=== PATIENT | female | born 1965 | race Caucasian/White ===

== ENCOUNTER → 2017-04-12 | Outpatient (CLI) | payer BC ==
--- NOTE | 2017-04-13 10:39 | MM ---
Reason for exam: screening (asymptomatic). Last mammogram was performed 1 year and 5 months ago. History: Family history of breast cancer in aunt at age 60 and breast cancer in cousin at age 48. Took hormonal contraceptives for 6 months beginning at age 24. Physical Findings: A clinical breast exam by your physician is recommended on an annual basis and results should be correlated with mammographic findings. MG 3D Screening Mammo W/Cad Bilateral CC and MLO view(s) were taken. Prior study comparison: November 01, 2015, bilateral MG 3d screening mammo w/cad. August 08, 2014, bilateral MG diagnostic mammo w CAD KAREN. The breast tissue is heterogeneously dense. This may lower the sensitivity of mammography. Finding: There are typically benign round calcifications in the right breast. There is no discrete abnormality. ASSESSMENT: Negative, BI-RAD 1 RECOMMENDATION: Routine screening mammogram of both breasts in 1 year.
== END | disposition home or self-care (01) ==
LOC: RADMAMWWP 10:03
PROVIDERS: ATTEND Family Medicine
DX: Z12.31 Encounter for screening mammogram for malignant neoplasm of breast (principal)
CPT/HCPCS: 77063; G0202

== ENCOUNTER → 2018-08-18 | Outpatient (CLI) | payer BC ==
--- NOTE | 2018-08-18 10:50 | BD ---
EXAMINATION TYPE: Axial Bone Density DATE OF EXAM: 08/18/2018 COMPARISON: NONE CLINICAL HISTORY: 53 YR OLD FEMALE....ICD-10 CODE: M81.0 AGE RELATED OSTEOPOROSIS Height: 61.4 Weight: 176 FRAX RISK QUESTIONS: NOTHING TO NOTE HERE RISK FACTORS HISTORY OF: Active: YES Postmenopausal woman: NA If Premenopausal, do you have irregular periods: HYST AT AGE 44 YRS OLD, PARTIAL MEDICATIONS: Prednisone or other steroids: INHALERS IN THE PAST ....BUT NONE NOW Additional Medications: VIT D, LAST YR....STOPPED 3 MOS AGO, REFLUX MEDS, Additional History: NOTHING TO NOTE EXAM MEASUREMENTS: Bone mineral densitometry was performed using the [employer] System. Bone mineral density as measured about the Lumbar spine is: ----- L1-L4(G/cm2): 1.349 T Score Values are as follows: ----- L1: 1.1 ----- L2: 1.3 ----- L3: 1.1 ----- L4: 1.8 ----- L1-L4: 1.4 Bone mineral density FIRST BONE DENSITY TEST......BASELINE STUDY Bone mineral density about the R hip (g/cm2): 1.108 Bone mineral density about the L hip (g/cm2): 1.087 T Score values are as follows: -----R Neck: 0.3 -----L Neck: -0.1 -----R Total: 0.8 -----L Total: 0.6 Bone mineral density BASELINE STUDY FRAX%s: THERE IS A 3.7% CHANCE FOR A MAJOR OSTEOPOROTIC FX AND A 0.1% FOR HIP FX.....PROBABILITY OF FX IN 10 YRS TIME IMPRESSION: No evidence for osteoporosis or osteopenia. NOTE: T-SCORE=SD OF THE YOUNG ADULT MEAN.
--- NOTE | 2018-08-19 11:41 | MM ---
Reason for exam: screening (asymptomatic). Last mammogram was performed 1 year and 4 months ago. History: Family history of breast cancer in aunt at age 60 and breast cancer in cousin at age 48. Took hormonal contraceptives for 6 months beginning at age 24. Physical Findings: A clinical breast exam by your physician is recommended on an annual basis and results should be correlated with mammographic findings. MG 3D Screening Mammo W/Cad Bilateral CC and MLO view(s) were taken. Prior study comparison: April 12, 2017, bilateral MG 3d screening mammo w/cad. November 01, 2015, bilateral MG 3d screening mammo w/cad. The breast tissue is heterogeneously dense. This may lower the sensitivity of mammography. There are benign appearing round vascular calcifications bilaterally. There is no discrete abnormality. ASSESSMENT: Benign, BI-RAD 2 RECOMMENDATION: Routine screening mammogram of both breasts in 1 year.
== END | disposition home or self-care (01) ==
LOC: RADMAMWWP 07:06
PROVIDERS: ATTEND Family Medicine
DX: Z12.31 Encounter for screening mammogram for malignant neoplasm of breast (principal); Z87.39 Personal history of other diseases of the musculoskeletal system and connective tissue
CPT/HCPCS: 77063; 77067; 77080

== ENCOUNTER → 2020-08-19 | Outpatient (CLI) | payer BC ==
--- NOTE | 2020-08-19 10:00 | BD ---
EXAMINATION TYPE: Axial Bone Density DATE OF EXAM: 08/19/2020 COMPARISON: 2018 CLINICAL HISTORY: osteoporosis Height: 5 '1 1/2 Weight: 191 FRAX RISK QUESTIONS: Secondary Osteoporosis: RISK FACTORS HISTORY OF: Family History of Osteoporosis: y Postmenopausal woman: y MEDICATIONS: Prednisone or other steroids: y How Long: off and on Additional Medications: acid reflex Additional History: EXAM MEASUREMENTS: Bone mineral densitometry was performed using the [employer] System. Bone mineral density as measured about the Lumbar spine is: ----- L1-L4(G/cm2): 1.375 T Score Values are as follows: ----- L2: 1.4 ----- L3: 2.0 ----- L4: 1.8 ----- L1-L4: 1.6 Bone mineral density has: increased 2.6% since study of: 08/18/2018 Bone mineral density about the R hip (g/cm2): 1.022 Bone mineral density about the L hip (g/cm2): 1.016 T Score values are as follows: -----R Neck: -0.1 -----L Neck: -0.2 -----R Total: 0.8 -----L Total: 0.6 Bone mineral density has: Decreased -0.1% since study of: 08/18/2018 IMPRESSION: Normal (Values between +1 and -1 indicate normal bone mass). Consider repeating this study in 5 year s or sooner if there is some new clinical indication. NOTE: T-SCORE=SD OF THE YOUNG ADULT MEAN.
--- NOTE | 2020-08-20 13:32 | MM ---
Reason for exam: screening (asymptomatic). Last mammogram was performed 2 years ago. History: Family history of breast cancer in aunt at age 60 and breast cancer in cousin at age 48. Took hormonal contraceptives for 6 months beginning at age 24. Physical Findings: A clinical breast exam by your physician is recommended on an annual basis and results should be correlated with mammographic findings. MG 3D Screening Mammo W/Cad Bilateral CC, MLO, and XCCL view(s) were taken. Prior study comparison: August 18, 2018, bilateral MG 3d screening mammo w/cad. April 12, 2017, bilateral MG 3d screening mammo w/cad. The breast tissue is heterogeneously dense. This may lower the sensitivity of mammography. No significant changes when compared with prior studies. ASSESSMENT: Benign, BI-RAD 2 RECOMMENDATION: Routine screening mammogram of both breasts in 1 year.
== END | disposition home or self-care (01) ==
LOC: RADMAMWWP 08:10
PROVIDERS: ATTEND Family Medicine
DX: Z12.31 Encounter for screening mammogram for malignant neoplasm of breast (principal); M81.0 Age-related osteoporosis without current pathological fracture
CPT/HCPCS: 77063; 77067; 77080

== ENCOUNTER → 2021-10-30 | Outpatient (CLI) | payer BC ==
--- NOTE | 2021-11-03 08:27 | MM ---
Reason for exam: screening (asymptomatic). Last mammogram was performed 1 year and 2 months ago. History: Patient is postmenopausal. Family history of breast cancer in aunt at age 60 and breast cancer in cousin at age 48. Took hormonal contraceptives for 6 months beginning at age 24. Physical Findings: A clinical breast exam by your physician is recommended on an annual basis and results should be correlated with mammographic findings. MG 3D Screening Mammo W/Cad Bilateral CC and MLO view(s) were taken. Prior study comparison: August 19, 2020, bilateral MG 3d screening mammo w/cad. August 18, 2018, bilateral MG 3d screening mammo w/cad. The breast tissue is heterogeneously dense. This may lower the sensitivity of mammography. Isodense nodularity lateral anterior left CC view and medial middle depth left CC view show no clear MLO correlate, possible cysts. ASSESSMENT: Incomplete: need additional imaging evaluation, BI-RAD 0 RECOMMENDATION: Special view mammogram of the left breast. (3D) If lesion persists on supplemental views, image directed ultrasound is recommended. [facility] will attempt to contact patient to return for supplemental views and ultrasound if indicated.
== END | disposition home or self-care (01) ==
LOC: RADMAMWWP 07:15
PROVIDERS: ATTEND Family Medicine
DX: Z12.31 Encounter for screening mammogram for malignant neoplasm of breast (principal); Z78.0 Asymptomatic menopausal state; Z80.3 Family history of malignant neoplasm of breast
CPT/HCPCS: 77063; 77067

== ENCOUNTER → 2021-11-05 | Outpatient (CLI) | payer BC ==
--- NOTE | 2021-11-05 09:20 | MM ---
Reason for exam: additional evaluation requested from abnormal screening. Last mammogram was performed less than 1 month ago. History: Patient is postmenopausal. Family history of breast cancer in aunt at age 60 and breast cancer in cousin at age 48. Took hormonal contraceptives for 6 months beginning at age 24. Physical Findings: Nurse did not find any significant physical abnormalities on exam. MG 3D Work Up W/Cad LT Spot compression CC and LM view(s) were taken of the left breast. Prior study comparison: October 30, 2021, bilateral MG 3d screening mammo w/cad. August 19, 2020, bilateral MG 3d screening mammo w/cad. The breast tissue is heterogeneously dense. This may lower the sensitivity of mammography. There is no discrete abnormality including area of concern. These results were verbally communicated with the patient and result sheet given to the patient on 11/05/21. ASSESSMENT: Probably benign, BI-RAD 3 RECOMMENDATION: Follow-up diagnostic mammogram of the left breast in 6 months.
== END | disposition home or self-care (01) ==
LOC: RADMAMWWP 07:34
PROVIDERS: ATTEND Family Medicine
DX: R92.8 Other abnormal and inconclusive findings on diagnostic imaging of breast (principal); Z78.0 Asymptomatic menopausal state; Z80.3 Family history of malignant neoplasm of breast
CPT/HCPCS: 77061; 77065

== ENCOUNTER 2022-01-04 09:18 | Emergency (ER) | payer BC ==
[2022-01-04 11:14] VITALS: RESP 14
[2022-01-04] MEDS ORDERED: MORPHINE SULFATE 4 MG/ML SYRINGE IVP STA (11:26)
[2022-01-04] MEDS ORDERED: ONDANSETRON 4 MG/2 ML VIAL IVP STA (11:26)
[2022-01-04 11:46] LABS: Basophils % (A) 0 %; Eosinophils # (A) 0.1 k/uL (0-0.7); Eosinophils % (A) 1 %; HCT 44.7 % (34.0-46.0); HGB 15.4 gm/dL (11.4-16.0); Lymphocytes # (A) 0.4 k/uL (1.0-4.8); Lymphocytes % (A) 5 %; MCH 31.4 pg (25.0-35.0); MCHC 34.3 g/dL (31.0-37.0); MCV 91.4 fL (80.0-100.0); Mean Platelet Volume 8.3; Monocytes # (A) 0.2 k/uL (0-1.0); Monocytes % (A) 2 %; Neutrophils # (A) 7.2 k/uL (1.3-7.7); Neutrophils % (A) 91 %; Platelet Count 151 k/uL (150-450); RBC 4.89 m/uL (3.80-5.40); RDW 12.7 % (11.5-15.5); WBC 7.9 k/uL (3.8-10.6)
--- NOTE | 2022-01-04 11:48 | ED ---
General Adult HPI - General Chief complaint: Extremity Injury, Upper Stated complaint: Neck/Rt Arm Pain Time Seen by Provider: 01/04/22 11:07 Source: patient Mode of arrival: ambulatory Limitations: no limitations - History of Present Illness Initial comments: This 56-year-old female presents emergency Department with right shoulder pain. Patient states she has had pain on the right side of her neck and in her right shoulder for the last couple of years, however 2 weeks ago she noticed increased pain in her right shoulder. Patient states this past she got a massage were the masseuse worked on a big knot in her right shoulder. Patient states about 4 hours after massage she began having excruciating pain to her right shoulder and on the right side of her neck. Patient states she did see [facility] on Wednesday who did schedule an MRI for this Wednesday. Patient states the pain is sharp in nature and is located on the backside of her right shoulder. Patient states the pain spasms and radiates up to the right side of her neck. Patient states [facility] did give her prednisone, baclofen, Zofran and [place] which has somewhat relieve the pain, however the pain feels worse today. Patient states her pain is worse with movement and states whenever she tries to lift her arm it causes spasms in her right shoulder. Patient states she is able to turn her head and neck side to side with minimal pain. Patient states she has been wearing a shoulder sling that was given to her by [facility] along with a collar around her neck. Patient denies any radicular pain, tingling or numbness. Patient denies any chest pain, shortness of breath, abdominal pain, nausea, vomiting, change in bowel or bladder, low back pain, saddle anesthesia, bowel or bladder retention/incontinence, headache, lightheadedness, dizziness. - Related Data Previous Rx's Medication Instructions Recorded Gabapentin [Neurontin] 300 mg PO BID #14 cap 01/04/22 oxyCODONE HCL/ACETAMINOPHEN 1 tab PO Q6HR PRN 3 Days #12 tab 01/04/22 [Percocet 5-325 mg] Allergies Allergy/AdvReac Type Severity Reaction Status Date / Time Sulfa (Sulfonamide Allergy Nausea & Verified 01/04/22 09:46 Antibiotics) Vomiting Review of Systems ROS Statement: Those systems with pertinent positive or pertinent negative responses have been documented in the HPI. ROS Other: All systems not noted in ROS Statement are negative. Past Medical History History of Any Multi-Drug Resistant Organisms: None Reported Past Surgical History: Hysterectomy Past Psychological History: No Psychological Hx Reported Smoking Status: Never smoker Past Alcohol Use History: Occasional Past Drug Use History: None Reported General Exam Limitations: no limitations General appearance: alert, in no apparent distress Head exam: Present: atraumatic, normocephalic, normal inspection Eye exam: Present: normal appearance, PERRL, EOMI. Absent: scleral icterus, conjunctival injection, periorbital swelling Pupils: Present: normal accommodation ENT exam: Present: normal exam, mucous membranes moist Neck exam: Present: normal inspection, tenderness (Mild tenderness to paraspinal cervical area on right side), full ROM. Absent: meningismus, lymphadenopathy Respiratory exam: Present: normal lung sounds bilaterally. Absent: respiratory distress, wheezes, rales, rhonchi, stridor Cardiovascular Exam: Present: regular rate, normal rhythm, normal heart sounds. Absent: systolic murmur, diastolic murmur, rubs, gallop, clicks GI/Abdominal exam: Present: soft, normal bowel sounds. Absent: distended, tenderness, guarding, rebound, rigid Extremities exam: Present: normal inspection, normal capillary refill, other (Patient with pain to anterior and posterior side of right shoulder to palpation. Patient able to slightly raise right arm anteriorly and laterally, it does cause pain. Radial and ulnar pulses palpable. No erythema. warmth to area. Mild swelling to posterior shoulder. No sign of infection.). Absent: full ROM (Patient able to slightly raise left arm laterally and anteriorly, however does cause severe pain. Patient able to squeeze my hand with equal strength to left hand, however does cause pain directly in her right shoulder), tenderness, pedal edema, joint swelling, calf tenderness Back exam: Present: normal inspection, full ROM, paraspinal tenderness (Mild paraspinal tenderness on right side to cervical area to deep palpation. Pain to posterior shoulder to palpation). Absent: CVA tenderness (R), CVA tenderness (L), vertebral tenderness Neurological exam: Present: alert, oriented X3, CN II-XII intact Psychiatric exam: Present: normal affect, normal mood Skin exam: Present: warm, dry, intact, normal color. Absent: rash Course Vital Signs 01/04/22 01/04/2222 09:40 11:10 14:59 Temperature 99.0 F 97.6 F 98.1 F Pulse Rate 90 83 87 Respiratory 20 14 14 Rate Blood Pressure 179/95 176/97 174/118 O2 Sat by Pulse 96 97 98 Oximetry - Reevaluation(s) Reevaluation #1: 01/04/22 11:42 After receiving morphine, patient states her shoulder pain did slightly decrease. 01/04/22 12:32 On reevaluation, patient states her pain is still present and severely worsens with any movement of right shoulder. Dilaudid ordered 01/04/22 13:03 On reevaluation, patient states she stated the Dilaudid did help her pain and decreased it down to about 4/10 01/04/22 13:45 I did speak with An[facility] from [facility] after [facility] scanning was read. She states she was going to call back after speaking to her attending 01/04/22 14:05 On reevaluation, patient still is experiencing 4/10 right shoulder pain. Physician acute care nursing assistant Anahi from [facility] did call back and stated she would be in to assess patient with her attending, . 01/04/22 14:52 Anahi did obtain a culture to be sent to lab. She instructed me to give patient a Percocet 5 x3 days along with gabapentin 300 mg twice a day for possible nerve pain. She stated she had an appointment with patient on Wednesday and was going to try and move it to either Wednesday or Wednesday. Medical Decision Making - Medical Decision Making This 56-year-old female presents emergency Department with right shoulder pain and mild swelling that has been present after a massage this past . 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 There is a prominent superior spur. Soft tissue edema throughout the subcutaneous tissue superior to the shoulder/AC joint, could represent bruising or other soft tissue swelling. Preserved volume of the rotator cuff. No joint her shoulder effusion apparent. No acute osseous abnormality seen. Patient with white blood cell count 7.8, ESR 50, C-reactive protein 21.3 Patient did receive minimal improvement in pain after morphine, after Dilaudid given patient stated her pain had significantly decreased and was now down to 4/10 instead of 10/10 on arrival. I did speak with [facility] from [facility] who has been seen owen ent for this issue who did come and evaluate patient with her attending, and obtained a culture to be sent to lab. Anahi did instruct me to give patient Percocet 5 q6hr x3 days along with gabapentin 300 mg twice a day for possible nerve pain. Anahi and I both instructed patient not to take [place] anymore and to take the Percocet instead. Patient instructed to continue her steroid along with Zofran as directed. Patient struck him to follow-up with her orthopedic appointment on Wednesday for her MRI. Strict return precautions were discussed. Patient sent home in stable condition. Patient verbally agreed to plan. Case discussed in detail with my attending, Dr. Stacy. - Lab Data Result diagrams: 01/04/22 11:37 01/04/22 11:37 Lab Results 01/04/22 01/04/22 Range/Units 11:37 11:37 WBC 7.9 (3.8-10.6) k/uL RBC 4.89 (3.80-5.40) m/uL Hgb 15.4 (11.4-16.0) gm/dL Hct 44.7 (34.0-46.0) % MCV 91.4 (80.0-100.0) fL MCH 31.4 (25.0-35.0) pg MCHC 34.3 (31.0-37.0) g/dL RDW 12.7 (11.5-15.5) % Plt Count 151 (150-450) k/uL MPV 8.3 Neutrophils % 91 % Lymphocytes % 5 % Monocytes % 2 % Eosinophils % 1 % Basophils % 0 % Neutrophils # 7.2 (1.3-7.7) k/uL Lymphocytes # 0.4 L (1.0-4.8) k/uL Monocytes # 0.2 (0-1.0) k/uL Eosinophils # 0.1 (0-0.7) k/uL Basophils # 0.0 (0-0.2) k/uL ESR 50 H (0-20) mm/hr Sodium 134 L (137-145) mmol/L Potassium 4.2 (3.5-5.1) mmol/L Chloride 99 (98-107) mmol/L Carbon Dioxide 24 (22-30) mmol/L Anion Gap 11 mmol/L BUN 8 (7-17) mg/dL Creatinine 0.53 (0.52-1.04) mg/dL Est GFR (CKD-EPI)AfAm >90 (>60 ml/min/1.73 sqM) Est GFR (CKD-EPI)NonAf >90 (>60 ml/min/1.73 sqM) Glucose 176 H (74-99) mg/dL Calcium 9.2 (8.4-10.2) mg/dL Total Bilirubin 1.1 (0.2-1.3) mg/dL AST 103 H (14-36) U/L ALT 165 H (4-34) U/L Alkaline Phosphatase 108 (38-126) U/L C-Reactive Protein 21.3 H (<1.0) mg/dL Total Protein 7.6 (6.3-8.2) g/dL Albumin 4.5 (3.5-5.0) g/dL Disposition Clinical Impression: Right shoulder pain Disposition: HOME SELF-CARE Condition: Stable Instructions (If sedation given, give patient instructions): Shoulder Pain (ED) Additional Instructions: Please return to the emergency department with any new, worsening or concerning symptoms. Take gabapentin every 12 hours 7 days, space out from when you take Percocet. Take Percocet no more than every 6 hours for pain relief. Do not take [place] while taking Percocet. Continue your steroid from [facility]. [facility] with [facility] on Wednesday for your scheduled MRI. Prescriptions: Gabapentin [Neurontin] 300 mg PO BID #14 cap oxyCODONE HCL/ACETAMINOPHEN [Percocet 5-325 mg] 1 tab PO Q6HR PRN 3 Days #12 tab PRN Reason: Pain Is patient prescribed a controlled substance at d/c from ED?: No Referrals: Lesley Becker MD [Primary Care Provider] - 1-2 days Time of Disposition: 15:35
[2022-01-04 11:56] LABS: ALT 165 U/L (4-34); AST 103 U/L (14-36); African American GFR (CKD) >90 (>60 ml/min/1.73 sqM); Albumin 4.5 g/dL (3.5-5.0); Alkaline Phosphatase 108 U/L (38-126); Anion Gap 11 mmol/L; Blood Urea Nitrogen 8 mg/dL (7-17); Calcium 9.2 mg/dL (8.4-10.2); Carbon Dioxide 24 mmol/L (22-30); Chloride 99 mmol/L (98-107); Glucose 176 mg/dL (74-99); Non-African American GFR(CKD) >90 (>60 ml/min/1.73 sqM); Potassium 4.2 mmol/L (3.5-5.1); Sodium 134 mmol/L (137-145); Total Bilirubin 1.1 mg/dL (0.2-1.3); Total Protein 7.6 g/dL (6.3-8.2)
[2022-01-04 12:07] LABS: C Reactive Protein 21.3 mg/dL (<1.0)
[2022-01-04 12:35] LABS: Erythrocyte Sedimentation Rate 50 mm/hr (0-20)
[2022-01-04] MEDS ORDERED: HYDROmorphone 0.5 MG/0.5 ML SYRINGE IVP STA (12:49)
--- NOTE | 2022-01-04 13:06 | CT ---
EXAMINATION TYPE: CT shoulder RT wo con DATE OF EXAM: 01/04/2022 COMPARISON: No radiographic correlation available HISTORY: 56-year-old female with right Shoulder pain TECHNIQUE: Contiguous axial scanning of the right shoulder without IV contrast. Coronal and sagittal reconstructions performed. Reconstructions generated on a dedicated independent workstation. CT DLP: 493.2 mGycm Automated exposure control for dose reduction was used. FINDINGS: There is mild to moderate degenerative change at the acromioclavicular joint. Prominent superior spur ring and capsular hypertrophy. There is soft tissue edema throughout the soft tissues superior to the AC joint that could represent some bruising or other soft tissue swelling. Subacromial space is maintained. No atrophy of the rotator cuff musculature. A joint is intact. There is minimal inferior humeral head spurring noted. No minimal joint effusion and no apparent subacromial/subdeltoid bursal effusion. No acute fracture, subluxation, or dislocation seen. IMPRESSION: 1. [id number] AC JOINT OA. THERE IS A PROMINENT SUPERIOR SPUR. 2. SOFT TISSUE EDEMA THROUGHOUT THE SUBCUTANEOUS TISSUES SUPERIOR TO THE SHOULDER/AC JOINT COULD REPR ESENT BRUISING OR OTHER SOFT TISSUE SWELLING. CLINICALLY CORRELATE. 3. PRESERVED VOLUME OF THE ROTATOR CUFF. NO JOINT OR BURSAL EFFUSION APPARENT BY CT. NO ACUTE OSSEOUS ABNORMALITY SEEN.
[2022-01-04] MEDS ORDERED: LIDOCAINE 1% INJ 10MG/ML (20 ML MDV) SQ ONE (14:08)
[2022-01-04] MEDS ORDERED: KETOROLAC 15 MG/ML 1 ML VIAL IVP STA (14:52)
[2022-01-04 15:01] VITALS: BP 174/118; PULSE 87; TEMP 98.1
--- NOTE | 2022-01-04 16:43 | P.CNOR ---
History of Present Illness - [facility] Consult date: 01/04/22 Consult reason: joint pain (Right shoulder pain) History of present illness: This is a 56-year-old female who was last seen in our office [place], 01/02/2022 with severe right shoulder pain. She had history of a deep tissue massage the day prior and soon developed severe right shoulder and arm pain. She's had no recent fevers or chills. No numbness or tingling down the arm. She describes the pain as constant and begins about the top of the shoulder and radiates posteriorly and anteriorly as well as down the inner arm. She has had minimal relief of her pain since been prescribed Prednisone, [place] and baclofen. She presents to the emergency department today for further evaluation. The patient denies history of gout but states her Father had severe gout. CT scan was performed in the emergency department today which shows no evidence of glenohumeral joint effusion. There is some fluid in the acromioclavicular joint. There is also diffuse soft tissue swelling in the shoulder. We are consulted for orthopedic evaluation. Past Medical History History of Any Multi-Drug Resistant Organisms: None Reported Past Surgical History: Hysterectomy Past Psychological History: No Psychological Hx Reported Smoking Status: Never smoker Past Alcohol Use History: Occasional Past Drug Use History: None Reported Medications and Allergies Home Medications Medication Instructions Recorded Confirmed Type Gabapentin [Neurontin] 300 mg PO BID #14 cap 01/04/22 Rx oxyCODONE HCL/ACETAMINOPHEN 1 tab PO Q6HR PRN 3 Days #12 tab 01/04/22 Rx [Percocet 5-325 mg] Allergies Allergy/AdvReac Type Severity Reaction Status Date / Time Sulfa (Sulfonamide Allergy Nausea & Verified 01/04/22 09:46 Antibiotics) Vomiting Physical Examination The patient is alert and oriented 3. She is in no acute distress but visibly uncomfortable. Any palpation to the anterior superior shoulder is significantly painful. Gentle internal and external rotation of the shoulder does not produce shoulder joint pain. There is pain noted with attempt of forward flexion and abduction. There is mild tenderness with palpation about the posterior right paraspinal musculature. There is pain in the superior anterior shoulder with even gentle motion of the wrist and elbow. Neurovascular status to the lower extremity is intact. The remainder of her musculoskeletal exam is unremarkable. Results Patient's white blood cell count is normal. CRP is 21. Sedimentation rate 50. CT scan of the right shoulder Without contrast reveals no glenohumeral joint effusion. There is an acromioclavicular fusion noted. There is generalized soft tissue edema throughout the shoulder.No acute fractures identified. - Labs Labs: Abnormal Lab Results - Last 24 Hours (Table) 01/04/22 01/04/22 Range/Units 11:37 11:37 Lymphocytes # 0.4 L (1.0-4.8) k/uL ESR 50 H (0-20) mm/hr Sodium 134 L (137-145) mmol/L Glucose 176 H (74-99) mg/dL AST 103 H (14-36) U/L ALT 165 H (4-34) U/L C-Reactive Protein 21.3 H (<1.0) mg/dL H & H 01/04/22 Range/Units 11:37 Hgb 15.4 (11.4-16.0) gm/dL Hct 44.7 (34.0-46.0) % Result Diagrams: 01/04/22 11:37 01/04/22 11:37 Assessment and Plan (1) Acromioclavicular joint arthritis Current Visit: Yes Status: Acute Code(s): M19.019 - PRIMARY OSTEOARTHRITIS, UNSPECIFIED SHOULDER SNOMED Code(s): 851249121 (2) Right shoulder pain Current Visit: Yes Status: Acute Code(s): M25.511 - PAIN IN RIGHT SHOULDER SNOMED Code(s): 49045817 Plan: The clinical and x-ray findings are discussed with the patient. The patient is evaluated by Dr. Brar today as well. The acromioclavicular joint is aspirated, obtaining only a few drops of fluid which is sent for culture and sensitivity. ER will provide her with stronger pain medication. I gave her a shot of Toradol before she leaves today. She is to follow-up for the MRI as scheduled. She is to continue the prednisone taper.
== END 2022-01-04 16:09 | disposition home or self-care (01) ==
LOC: EC 09:18
DX: M19.011 Primary osteoarthritis, right shoulder (principal); Z88.2 Allergy status to sulfonamides; Z90.710 Acquired absence of both cervix and uterus
CPT/HCPCS: 99284; 96374; 96375 ×3; 36415; 80053; 85652; 85025; 86140; 87070; 87205; 73200; J2270; J2405; J2001; J1885; J1170; 87077; 87186

== ENCOUNTER 2022-01-05 13:34 | Inpatient (IN) | payer BC ==
[2022-01-05] MEDS ORDERED: VANCOMYCIN IV PER PHARMACY 1 EACH MISC MISCELLANE PRN (13:58)
[2022-01-05] MEDS ORDERED: diazePAM 5 MG TAB PO STA (13:59)
[2022-01-05] MEDS ORDERED: HYDROmorphone 0.5 MG/0.5 ML SYRINGE IVP STA (13:59)
[2022-01-05] MEDS ORDERED: LOPERAMIDE 2 MG CAP PO PRN (14:01)
[2022-01-05] MEDS ORDERED: MAGNESIUM HYDROXIDE 2,400 MG/10 ML CUP PO PRN (14:01)
[2022-01-05] MEDS ORDERED: HYDROmorphone 1 MG/ML 1 ML SYRINGE IVP PRN (14:01)
[2022-01-05] MEDS ORDERED: NALOXONE 0.4 MG/ML 1 ML VIAL IV PRN (14:01)
--- NOTE | 2022-01-05 14:07 | ED ---
General Adult HPI - General Chief complaint: Extremity Problem,Nontraumatic Stated complaint: Shoulder Pain, Infection, Referral from Dr. Lilly Time Seen by Provider: 01/05/22 13:40 Source: patient, RN notes reviewed, old records reviewed Mode of arrival: ambulatory Limitations: physical limitation - History of Present Illness Initial comments: This is a 56-year-old female who presents emergency Department with pain in the right before meals joint area. Patient a few days ago had a very deep tissue massage when she woke up the next morning she was barely able to move her shoulder at all secondary to significant pain. Patient was seen in emergency department Dr. Brar aspirated the before meals joint and to the that aspirin came back with some gram-positive cocci. Dr. Brar wanted the patient to be brought into the hospital started on antibiotics and get an MRI of the shoulder. Patient herself states the pain is still excruciating and she's been taking OxyContin at home and has been helping but it still very difficult to move her shoulder. Patient states the pain is mostly over the before meals joint but it spreads down into her upper chest a little and into her supraspinatus area. There is no redness or swelling noted. - Related Data Previous Rx's Medication Instructions Recorded Gabapentin [Neurontin] 300 mg PO BID #14 cap 01/04/22 oxyCODONE HCL/ACETAMINOPHEN 1 tab PO Q6HR PRN 3 Days #12 tab 01/04/22 [Percocet 5-325 mg] Allergies Allergy/AdvReac Type Severity Reaction Status Date / Time Sulfa (Sulfonamide Allergy Nausea & Verified 01/05/22 13:36 Antibiotics) Vomiting Review of Systems ROS Statement: Those systems with pertinent positive or pertinent negative responses have been documented in the HPI. ROS Other: All systems not noted in ROS Statement are negative. Past Medical History History of Any Multi-Drug Resistant Organisms: None Reported Past Surgical History: Hysterectomy Past Psychological History: No Psychological Hx Reported Smoking Status: Never smoker Past Alcohol Use History: Occasional Past Drug Use History: None Reported General Exam - General Exam Comments Initial Comments: GENERAL: Patient is well-developed and well-nourished. Patient is nontoxic and well- hydrated and is in mild distress. ENT: Neck is soft and supple. No significant lymphadenopathy is noted. Oropharynx is clear. Moist mucous membranes. Neck has full range of motion without eliciting any pain. EYES: The sclera were anicteric and conjunctiva were pink and moist. Extraocular movements were intact and pupils were equal round and reactive to light. Eyelids were unremarkable. SKIN: Skin is clear with no lesions or rashes and otherwise unremarkable. NEUROLOGIC: Patient is alert and oriented x3. Cranial nerves II through XII are grossly intact. Motor and sensory are also intact. Normal speech, volume and content. Symmetrical smile. MUSCULOSKELETAL: Patient is having difficulty moving the arm secondary to pain. The before meals joint area is extremely tender to pain and the area just anterior and posterior to that are also tender but not as tender.. LYMPHATICS: No significant lymphadenopathy is noted PSYCHIATRIC: Normal psychiatric evaluation. Limitations: physical limitation Course Vital Signs 01/05/22 13:36 Temperature 97.8 F Pulse Rate 92 Respiratory 18 Rate Blood Pressure 159/91 O2 Sat by Pulse 97 Oximetry Medical Decision Making - Medical Decision Making I ordered an MRI for the patient shoulder. I gave the patient vancomycin. I also gave the patient Dilaudid for pain and ordered Valium to be given to her by mouth 5 mg at 4:00. I spoke with Anahi Levine and she wanted the patient to Dr. Brar - Lab Data Result diagrams: 01/05/22 13:45 01/05/22 13:45 Lab Results 01/05/22 01/05/22 Range/Units 13:45 13:45 WBC 7.8 (3.8-10.6) k/uL RBC 4.85 (3.80-5.40) m/uL Hgb 15.2 (11.4-16.0) gm/dL Hct 45.0 (34.0-46.0) % MCV 92.8 (80.0-100.0) fL MCH 31.4 (25.0-35.0) pg MCHC 33.8 (31.0-37.0) g/dL RDW 12.7 (11.5-15.5) % Plt Count 172 (150-450) k/uL MPV 8.6 Neutrophils % 87 % Lymphocytes % 8 % Monocytes % 4 % Eosinophils % 0 % Basophils % 0 % Neutrophils # 6.8 (1.3-7.7) k/uL Lymphocytes # 0.6 L (1.0-4.8) k/uL Monocytes # 0.3 (0-1.0) k/uL Eosinophils # 0.0 (0-0.7) k/uL Basophils # 0.0 (0-0.2) k/uL Sodium 136 L (137-145) mmol/L Potassium 4.1 (3.5-5.1) mmol/L Chloride 99 (98-107) mmol/L Carbon Dioxide 28 (22-30) mmol/L Anion Gap 9 mmol/L BUN 9 (7-17) mg/dL Creatinine 0.55 (0.52-1.04) mg/dL Est GFR (CKD-EPI)AfAm >90 (>60 ml/min/1.73 sqM) Est GFR (CKD-EPI)NonAf >90 (>60 ml/min/1.73 sqM) Glucose 185 H (74-99) mg/dL Calcium 9.0 (8.4-10.2) mg/dL Total Bilirubin 1.2 (0.2-1.3) mg/dL AST 135 H (14-36) U/L ALT 201 H (4-34) U/L Alkaline Phosphatase 118 (38-126) U/L Total Protein 7.5 (6.3-8.2) g/dL Albumin 4.3 (3.5-5.0) g/dL Disposition Clinical Impression: Joint infection Disposition: ADMITTED IP TO THIS HOSP Referrals: Lesley Becker MD [Primary Care Provider] - 1-2 days Time of Disposition: 14:58
[2022-01-05] MEDS ORDERED: VANCOMYCIN 1,500 MG in SODIUM CHLORIDE 0.9% 250 ML IVPB ONE (14:30)
[2022-01-05 14:37] LABS: Basophils % (A) 0 %; Eosinophils % (A) 0 %; HGB 15.2 gm/dL (11.4-16.0); Lymphocytes # (A) 0.6 k/uL (1.0-4.8); Lymphocytes % (A) 8 %; MCH 31.4 pg (25.0-35.0); MCHC 33.8 g/dL (31.0-37.0); MCV 92.8 fL (80.0-100.0); Mean Platelet Volume 8.6; Monocytes # (A) 0.3 k/uL (0-1.0); Monocytes % (A) 4 %; Neutrophils # (A) 6.8 k/uL (1.3-7.7); Neutrophils % (A) 87 %; Platelet Count 172 k/uL (150-450); RBC 4.85 m/uL (3.80-5.40); RDW 12.7 % (11.5-15.5); WBC 7.8 k/uL (3.8-10.6)
[2022-01-05 14:46] LABS: ALT 201 U/L (4-34); AST 135 U/L (14-36); African American GFR (CKD) >90 (>60 ml/min/1.73 sqM); Albumin 4.3 g/dL (3.5-5.0); Alkaline Phosphatase 118 U/L (38-126); Anion Gap 9 mmol/L; Blood Urea Nitrogen 9 mg/dL (7-17); Carbon Dioxide 28 mmol/L (22-30); Chloride 99 mmol/L (98-107); Glucose 185 mg/dL (74-99); Non-African American GFR(CKD) >90 (>60 ml/min/1.73 sqM); Potassium 4.1 mmol/L (3.5-5.1); Sodium 136 mmol/L (137-145); Total Bilirubin 1.2 mg/dL (0.2-1.3); Total Protein 7.5 g/dL (6.3-8.2)
[2022-01-05] MEDS: SODIUM CHLORIDE 0.9% 1,000 ML IV SCH (14:47)
--- NOTE | 2022-01-05 16:31 | P.PN ---
Progress Note - Text Progress Note Date: 01/05/22 Mrs. Santiago is a patient of our office. She was seen this past WEDNESDAY by Anahi Levine PA-C under the supervision of Dr. Bartolo Lilly for acute onset shoulder pain after a deep tissue massage. Her exam and plain films at that time were relatively benign and she had no other major medical co-morbidities. She was started on a steroid taper, baclofen and [place] and an MRI of the shoulder was ordered for this coming WEDNESDAY. This weekend her pain increased to the point that she came to the ER on Wednesday. Her physical exam showed exquisite tenderness over the AC joint, but no pain with PROM of the shoulder. She was afebrile and had no erythema or warmth over the shoulder. She had an elevated ESR and CRP, but a normal WBC. A CT scan was ordered and showed a small effusion and arthritis of the AC joint. Due to her level of pain, tenderness over the AC joint and elevated inflammatory markers we attempted to aspirate her AC joint. 0.5mL of bloody fluid was aspirated and sent to the lab (THERE WAS NO PURULENCE). This morning her gram stain of the fluid showed gram-positive cocci. Due to Dr. Lilly being out of town, she was admitted under my care for further work-up (an MRI of the shoulder), IV antibiotics for possible infection, and pain control. She does not appear septic and it is not clear if she has septic arthritis of the AC joint at this time. We will obtain further work-up (MRI of the shoulder) and her care will be transferred back to Dr. Lilly tomorrow morning when he is back in town to discuss the MRI results and further treatment, including possible surgery. The case was reviewed with Dr. Lilly and myself who both agree with this plan.
[2022-01-05] MEDS ORDERED: ALBUTEROL HFA INHALER INHALATION PRN (17:48)
[2022-01-05] MEDS: GABAPENTIN 300 MG CAP PO SCH (20:15)
[2022-01-05] MEDS: oxyCODONE-APAP 5-325MG 1 EACH TAB PO PRN (20:15)
[2022-01-05] MEDS: BACLOFEN 10 MG TAB PO PRN (20:15)
--- NOTE | 2022-01-05 22:24 | P.HPOR ---
History of Present Illness H&P Date: 01/05/22 Chief Complaint: Right shoulder pain This is a 56-year-old female who was last seen in our office 01/02/2022 with severe right shoulder pain. She had history of a deep tissue massage the day prior and soon developed severe right shoulder and arm pain. She's had no recent fevers or chills. No numbness or tingling down the arm. She describes the pain as constant and begins about the top of the shoulder and radiates posteriorly and anteriorly as well as down the inner arm. She has had minimal relief of her pain since been prescribed Prednisone, [place] and baclofen. She presented to the emergency department yesterday with continued pain. The patient denies history of gout but states her Father had severe gout. CT scan was performed in the emergency department on 01/04/2022 which showed no evidence of glenohumeral joint effusion. There is some fluid in the acromioclavicular joint. There is also diffuse soft tissue swelling in the shoulder. She was evaluated in the emergency department by Dr. Brar and myself and her acromioclavicular joint was aspirated. I obtained approximately 0.5 mL of bloody joint fluid which was sent for culture. The patient was sent home on strong pain medication per the emergency department with instruction to continue the prednisone and baclofen as well. An MRI has been scheduled through our office for Wednesday. This morning preliminary culture results were available which revealed the Gram stain positive for many gram-positive cocci. I contacted the patient who stated her pain continues to be severe. She reported no fever or chills or any other signs of diffuse sepsis. I reviewed the information with both Dr. Brar and Dr. Lilly who agree with admission for IV antibiotics, evaluation by infectious disease and stat MRI with contrast of the right shoulder. She is tentatively scheduled for surgical debridement Wednesday. Past Medical History Past Medical History: GERD/Reflux, Pneumonia Additional Past Medical History / Comment(s): HTN with only, numbness/tingling bilateral feet toes, bronchitis, UTI, concusion, occasional sciatica, anemia. History of Any Multi-Drug Resistant Organisms: None Reported Past Surgical History: Hysterectomy Additional Past Surgical History / Comment(s): EGD, D&C, bladder sling Past Anesthesia/Blood Transfusion Reactions: Postoperative Nausea & Vomiting (PONV) Smoking Status: Never smoker - Past Family History Father Family Medical History: CVA/TIA, Musculoskeletal Disorder Additional Family Medical History / Comment(s): Gout, parkinson's disease, of a CVA Mother Family Medical History: No Reported History Additional Family Medical History / Comment(s): Mother is 92 yrs old. Medications and Allergies Home Medications Medication Instructions Recorded Confirmed Type Gabapentin [Neurontin] 300 mg PO BID #14 cap 01/04/22 01/05/22 Rx oxyCODONE HCL/ACETAMINOPHEN 1 tab PO Q6HR PRN 3 Days #12 tab 01/04/22 01/05/22 Rx [Percocet 5-325 mg] Albuterol Inhaler [Ventolin Hfa 2 puff INHALATION RT-Q4H PRN 01/05/22 01/05/22 History Inhaler] Baclofen 10 mg PO TID PRN 01/05/22 01/05/22 History Ondansetron Odt [Zofran Odt] 4 mg PO Q6H PRN 01/05/22 01/05/22 History clindamycin HCL [Cleocin] 300 mg PO Q8H 01/05/22 01/05/22 History predniSONE [Deltasone] See Taper PO DIRECTED 01/05/22 01/05/22 History Allergies Allergy/AdvReac Type Severity Reaction Status Date / Time Sulfa (Sulfonamide Allergy Nausea & Verified 01/05/22 15:46 Antibiotics) Vomiting Physical Examination The patient is alert and oriented 3. She is in no acute distress but visibly uncomfortable. There is generalized soft tissue swelling about the acromial clavicular joint. Any palpation to the anterior superior shoulder is significantly painful. Gentle internal and external rotation of the shoulder does not produce shoulder joint pain. There is pain noted with attempt of forward flexion and abduction. There is mild tenderness with palpation about the posterior right paraspinal musculature. There is pain in the superior anterior shoulder with even gentle motion of the wrist and elbow. Neurovascular status to the lower extremity is intact. The remainder of her musculoskeletal exam is unremarkable. Results CT scan Without contrast performed in the emergency department yesterday showed some fluid in the region of the Acromioclavicular joint. No acute fractures. No fluid in the glenohumeral joint. - Labs Labs: Abnormal Lab Results - Last 24 Hours (Table) 01/05/22 01/05/22 Range/Units 13:45 13:45 Lymphocytes # 0.6 L (1.0-4.8) k/uL Sodium 136 L (137-145) mmol/L Glucose 185 H (74-99) mg/dL AST 135 H (14-36) U/L ALT 201 H (4-34) U/L H & H 01/05/22 Range/Units 13:45 Hgb 15.2 (11.4-16.0) gm/dL Hct 45.0 (34.0-46.0) % Result Diagrams: 01/05/22 13:45 01/05/22 13:45 Assessment and Plan (1) Joint infection Current Visit: Yes Status: Acute Code(s): M00.9 - PYOGENIC ARTHRITIS, UNSPECIFIED SNOMED Code(s): 124676135 (2) Acromioclavicular joint arthritis Current Visit: No Status: Acute Code(s): M19.019 - PRIMARY OSTEOARTHRITIS, UNSPECIFIED SHOULDER SNOMED Code(s): 933077399 (3) Right shoulder pain Current Visit: No Status: Acute Code(s): M25.511 - PAIN IN RIGHT SHOULDER SNOMED Code(s): 12184044 Plan: The clinical and latest laboratory findings were discussed with the patient. I have reviewed the case with both Dr. Brar and Dr. Lilly. It is recommended she be admitted for IV antibiotics, MRI with contrast and evaluation by infectious disease. We have her tentatively scheduled for a surgical debridement of the right shoulder on Wednesday. I've ordered vancomycin with pharmacy to dose.
--- NOTE | 2022-01-05 23:17 | MR ---
EXAMINATION TYPE: MR shoulder RT wo/w con DATE OF EXAM: 01/05/2022 COMPARISON: None HISTORY: Shoulder infection. CONTRAST: Standard multiplanar, multisequence MRI departmental protocol images were obtained without contrast a nd with 8 mL intravenous Gadavist gadolinium contrast. There is mild narrowing of the glenohumeral joint space. Subscapularis tendon is intact. The glenoid minh appear intact. There is small shoulder joint effusion. There is small subdeltoid effusion. Ther e is extensive subcutaneous edema over the deltoid muscle and the AC joint. There is subacromial darlin a with increased fluid signal seen in the subacromial joint space and extending along the superior as pect of the supraspinatus muscle. There is no evidence of full-thickness rotator cuff tear. There is also some fluid around the infraspinatus muscle. Humeral head is intact. Scapula appears intact. There is mild spurring at the AC joint. There is some mild soft tissue enhancement around the AC joint. IMPRESSION: Shoulder joint effusion. Subdeltoid effusion. Fluid accumulation in the subcutaneous tissues as well as around the supraspinatus and infraspinatus muscle consistent with infectious or inflammatory proce ss. No discrete abscess. No evidence of full-thickness rotator cuff tear. Moderate fluid accumulation seen at the AC joint that could relate to septic arthritis.
[2022-01-06] MEDS: VANCOMYCIN 1,500 MG in SODIUM CHLORIDE 0.9% 250 ML IVPB SCH ×2 (03:52→16:59)
[2022-01-06] MEDS: oxyCODONE-APAP 5-325MG 1 EACH TAB PO PRN ×2 (04:39→07:55)
[2022-01-06] MEDS: ONDANSETRON ODT 4 MG TAB PO PRN (04:41)
[2022-01-06 06:40] LABS: African American GFR (CKD) >90 (>60 ml/min/1.73 sqM); Non-African American GFR(CKD) >90 (>60 ml/min/1.73 sqM)
--- NOTE | 2022-01-06 07:59 | P.CONS ---
History of Present Illness - Reason for Consult Consult date: 01/05/22 Medical management Requesting physician: Scot Brar - Chief Complaint Right shoulder pain and possible abscess. - History of Present Illness HISTORY OF PRESENT ILLNESS 56-year-old female one of our office patient with past medical history of GERD and mildly elevated blood pressure apparently has been doing well the blood to have significant neck pain and shoulder pain ended up going for deep tissue massage this past week on Wednesday or developed to have severe right shoulder and arm pain could not sleep the night ended up [facility] were patient exam was consistent with severe skeletal muscular pain she was prescribed steroid along with muscle relaxer and medication for pain. Patient presented to the emergency department yesterday with severe intractable pain, CT at the ER shows no evidence of joint effusion at the time but had some fluid in the acromioclavicular joint with significant soft tissue swelling of the time. She ended up seen Dr. Brar in the emergency room joint aspiration was done and sent for culture patient was to continue medication. An MRI was schedule for patient as an outpatient but surprisingly the culture came back positive for gram-positivei [facility] was having no fever or chills at the time decided to have patient hospitalized due to MRI urgent and start patient on IV antibiotics right away. REVIEW OF SYSTEMS Constitutional: No fever, no chills, no night sweats. No weight change. No weakness, fatigue or lethargy. No daytime sleepiness. EENT: No headache. No blurred vision or double vision, no loss of vision. No loss of Hearing, no ringing in the ears, no dizziness. No nasal drainage or congestion. No epistaxis. No sore throat. Lungs: No shortness of breath, cough, no sputum production. No wheezing. Cardiovascular: No chest pain, no lower extremity edema. No palpitations. No paroxysmal nocturnal dyspnea. No orthopnea. No lightheadedness or dizziness. No syncopal episodes. Abdominal: No abdominal pain. No nausea, vomiting. No diarrhea. No constipation. No bloody or tarry stools.. No loss of appetite. Genitourinary: No dysuria, increased frequency, urgency. No urinary retention. Musculoskeletal: Significant right shoulder pain and discomfort restriction to motion with neck pain as well., no gait dysfunction, no frequent falls. No back pain. No neck pain. Integumentary: No wounds, no lesions. No rash or pruritus. No unusual bruising. No change in hair or nails. Neurologic: No aphasia. No facial droop. No change in mentation. No head injury. No headache. No paralysis. No paresthesia. Psychiatric: No depression. No anxiety. No mood swings. Endocrine: No abnormal blood sugars. No weight change. No excessive sweating or thirst. No cold intolerance. SOCIAL HISTORY She does not smoke, no code abuse, no drug use, patient does not use any CPAP no oxygen she is and lives with her . FAMILY HISTORY Father from complication of stroke and atherosclerotic heart disease at age 70, mother is living in her 92 with mild memory loss. She had 3 siblings with no major medical problem and she had 2 children are all living and well. PHYSICAL EXAMINATION Gen: This is a well-developed no acute respiratory distress. HEENT: Head is atraumatic, normocephalic. Pupils equal, round. Sclerae is anicteric. NECK: Supple. No JVD. No lymphadenopathy. No thyromegaly. LUNGS: Clear to auscultation. No wheezes or rhonchi. No intercostal retractions. HEART: Regular rate and rhythm. No murmur. ABDOMEN: Soft. Bowel sounds are present. No masses. No tenderness. EXTREMITIES: No pedal edema. No calf tenderness. Right shoulder had significant pain and discomfort restriction to motion and discomfort all along the joint the back of her shoulder as well. No sign of abscess or drainable at this point NEUROLOGICAL: Patient is awake, alert and oriented x3. Cranial nerves 2 through 12 are grossly intact. ASSESSMENT AND PLAN 1. Acute infected joint with positive cultures at this point, patient will continue on IV antibiotics with vancomycin patient be seen infectious disease MRI was done waiting for analysis of the result. Whether patient is getting go for surgery or not was to be decided by orthopedics. 2 intractable pain and discomfort in the right shoulder area: Probably could be explained by the infectious site at this point we'll continue pain management. 3 abnormal liver function test with significantly elevated ALT ST: Not a clear etiology at this point liver function tests might be done. 4 hyperglycemia: Patient blood sugar was 185 Accu-Chek with sliding scale coverage and be done patient has not been diabetic. 5 elevated blood pressure: Probably affected by her pain and discomfort with start patient on smaller dose of our losartan 50 mg a day and keep patient on hydralazine 25 mg every 6 hour for systolic blood pressure above 140. 6 GERD/GI prophylaxis: Patient will be on Pepcid. 7 DVT prophylaxis: Patient will be on Lovenox 40 mg subcutaneous daily. CODE STATUS: Full code. Dr. Brar thank you much for the consult if I can be any further help to please let me know. Past Medical History Past Medical History: GERD/Reflux, Pneumonia Additional Past Medical History / Comment(s): HTN with only, numbness/tingling bilateral feet toes, bronchitis, UTI, concusion, occasional sciatica, anemia. History of Any Multi-Drug Resistant Organisms: None Reported Past Surgical History: Hysterectomy Additional Past Surgical History / Comment(s): EGD, D&C, bladder sling Past Anesthesia/Blood Transfusion Reactions: Postoperative Nausea & Vomiting (PONV) Smoking Status: Never smoker - Past Family History Father Family Medical History: CVA/TIA, Musculoskeletal Disorder Additional Family Medical History / Comment(s): Gout, parkinson's disease, of a CVA Mother Family Medical History: No Reported History Additional Family Medical History / Comment(s): Mother is 92 yrs old. Medications and Allergies Home Medications Medication Instructions Recorded Confirmed Type Gabapentin [Neurontin] 300 mg PO BID #14 cap 01/04/22 01/05/22 Rx oxyCODONE HCL/ACETAMINOPHEN 1 tab PO Q6HR PRN 3 Days #12 tab 01/04/22 01/05/22 Rx [Percocet 5-325 mg] Albuterol Inhaler [Ventolin Hfa 2 puff INHALATION RT-Q4H PRN 01/05/22 01/05/22 History Inhaler] Baclofen 10 mg PO TID PRN 01/05/22 01/05/22 History Ondansetron Odt [Zofran Odt] 4 mg PO Q6H PRN 01/05/22 01/05/22 History clindamycin HCL [Cleocin] 300 mg PO Q8H 01/05/22 01/05/22 History predniSONE [Deltasone] See Taper PO DIRECTED 01/05/22 01/05/22 History Allergies Allergy/AdvReac Type Severity Reaction Status Date / Time Sulfa (Sulfonamide Allergy Nausea & Verified 04/04/22 15:46 Antibiotics) Vomiting Physical Exam Vitals: Vital Signs Temp Pulse Pulse Resp BP BP Pulse Ox 01/05/22 16:40 98.0 F 84 19 155/91 95 01/05/22 13:36 97.8 F 92 18 159/91 97 Intake and Output 01/05/22 01/05/22 01/05/22 06:59 14:59 22:59 Other: Weight 77.111 kg 77.111 kg Results CBC & Chem 7: 01/05/22 13:45 01/06/22 05:16 Labs: Abnormal Lab Results - Last 24 Hours (Table) 01/05/22 01/05/22 Range/Units 13:45 13:45 Lymphocytes # 0.6 L (1.0-4.8) k/uL Sodium 136 L (137-145) mmol/L Glucose 185 H (74-99) mg/dL AST 135 H (14-36) U/L ALT 201 H (4-34) U/L
[2022-01-06] MEDS: GABAPENTIN 300 MG CAP PO SCH ×2 (08:00→21:16)
[2022-01-06 08:43] LABS: HCT 41.5 % (34.0-46.0); HGB 13.8 gm/dL (11.4-16.0); MCH 31.9 pg (25.0-35.0); MCHC 33.3 g/dL (31.0-37.0); MCV 95.9 fL (80.0-100.0); Platelet Count 182 k/uL (150-450); RBC 4.33 m/uL (3.80-5.40); RDW 12.8 % (11.5-15.5)
[2022-01-06] MEDS: BACLOFEN 10 MG TAB PO PRN ×2 (08:51→21:16)
[2022-01-06] MEDS: PANTOPRAZOLE 40 MG TABLET PO SCH (08:51)
[2022-01-06] MEDS: ENOXAPARIN 40 MG/0.4 ML SYRINGE SQ SCH (08:51)
[2022-01-06] MEDS: LOSARTAN 50 MG TAB PO SCH (08:51)
[2022-01-06 09:00] LABS: ALT 140 U/L (4-34); AST 61 U/L (14-36); African American GFR (CKD) >90 (>60 ml/min/1.73 sqM); Albumin 3.6 g/dL (3.5-5.0); Albumin/Globulin Ratio 1.3; Alkaline Phosphatase 92 U/L (38-126); Anion Gap 8 mmol/L; Bilirubin,Unconjugated 0.5 mg/dL (0.0-1.1); Blood Urea Nitrogen 12 mg/dL (7-17); Calcium 8.5 mg/dL (8.4-10.2); Carbon Dioxide 30 mmol/L (22-30); Chloride 97 mmol/L (98-107); Globulin 2.8 g/dL; Glucose 124 mg/dL (74-99); Non-African American GFR(CKD) >90 (>60 ml/min/1.73 sqM); Potassium 3.8 mmol/L (3.5-5.1); Sodium 135 mmol/L (137-145); Total Bilirubin 0.8 mg/dL (0.2-1.3); Total Protein 6.4 g/dL (6.3-8.2)
--- NOTE | 2022-01-06 09:47 | P.PN ---
Subjective Progress Note Date: 01/06/22 Principal diagnosis: Septic arthritis acromioclavicular joint right shoulder. Severe right shoulder pain. Bacteremia. This is a 56-year-old female who was last seen in our office 01/02/2022 with severe right shoulder pain. She had history of a deep tissue massage the day prior and soon developed severe right shoulder and arm pain. She's had no recent fevers or chills. No numbness or tingling down the arm. She describes the pain as constant and begins about the top of the shoulder and radiates posteriorly and anteriorly as well as down the inner arm. She has had minimal relief of her pain since been prescribed Prednisone, [place] and baclofen. She presented to the emergency department yesterday with continued pain. The patient denies history of gout but states her Father had severe gout. CT scan was performed in the emergency department on 01/04/2022 which showed no evidence of glenohumeral joint effusion. There is some fluid in the acromioclavicular joint. There is also diffuse soft tissue swelling in the shoulder. She was evaluated in the emergency department by Dr. Brar and myself and her acromioclavicular joint was aspirated. I obtained approximately 0.5 mL of bloody joint fluid which was sent for culture. The patient was sent home on strong pain medication per the emergency department with instruction to continue the prednisone and baclofen as well. An MRI has been scheduled through our office for Wednesday. This morning preliminary culture results were available which revealed the Gram stain positive for many gram-positive cocci. I contacted the patient who stated her pain continues to be severe. She reported no fever or chills or any other signs of diffuse sepsis. I reviewed the information with both Dr. Brar and Dr. Lilly who agree with admission for IV antibiotics, evaluation by infectious disease and stat MRI with contrast of the right shoulder. She is tentatively scheduled for surgical debridement Wednesday. 01/06/2022: Gabriel continues to have severe pain to the right shoulder. She is alert and oriented 3. She is afebrile. Blood cultures are positive 2 for gram-positive cocci in clusters. The patient is evaluated today by myself and Dr. Bae simultaneously. A detailed history is obtained. She's had no recent infections that she is aware of. She's had no recent dental work. She reports no cuts or abrasions. No recent gynecological visits. No history of hemorrhoid or vaginal irritation. 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 She states that she was working 16-17 hour days and knows that she was not taking very good care of herself at that time. She feels that she may have had a urinary tract infection during that time and wasn't taking time to urinate. She states that she was able to flush with lots of water and her symptoms did improve. She does have a dog but has not had any recent scratches or abrasions from the pet. We are awaiting evaluation by infectious disease. Objective - Vital Signs Vital signs: Vital Signs Temp 98.7 F 01/06/22 07:37 Pulse 83 01/06/22 07:37 Resp 17 01/06/22 07:37 BP 162/79 01/06/22 07:37 Pulse Ox 96 01/06/22 02:00 Intake & Output 01/05/22 01/06/22 01/06/22 18:59 06:59 18:59 Weight 77.111 kg Other: Voiding Method Toilet # Voids 2 - Exam This is a pleasant 56-year-old female in no acute distress. She is in severe pain to the right shoulder and upper extremity. She has difficulty moving. She is able to get to a standing position with significant discomfort in the arm. Exam of the head neck reveal no obvious deformity. There are no cuts, abrasions or wounds to the head or neck. She has fairly good cervical spine motion today without difficulty. No nuchal rigidity noted. Exam of the upper extremities reveals significant pain and limitation in movement to the right shoulder. There is no erythema. There is mild soft tissue swelling about the acromioclavicular joint. Skin is inspected on the upper extremities which is normal. No abrasions or lacerations noted. Exam of the torso and abdomen reveals a small red spot on the anterior left chest with no open wounds noted. Exam of the skin to the chest, back and abdomen reveals no open wounds, abrasions or skin disruptions. No areas of erythema. Exam of the buttock and peroneal region reveals no skin breakdown or abrasions. No areas of erythema or swelling. Exam of the lower extremities reveals no obvious deformity. There is no swelling or erythema. No abrasions, wounds or lacerations noted. No skin breakdown. No findings between the toes. She has full motion to the lower extremities without difficulty or pain. Neurovascular status to the lower extremities is intact. - Labs CBC & Chem 7: 01/06/22 05:16 01/06/22 05:16 Labs: Abnormal Lab Results - Last 24 Hours (Table) 01/05/22 01/05/22 01/06/22 Range/Units 13:45 13:45 05:16 Lymphocytes # 0.6 L (1.0-4.8) k/uL Sodium 136 L 135 L (137-145) mmol/L Chloride 97 L (98-107) mmol/L Glucose 185 H 124 H (74-99) mg/dL AST 135 H 61 H (14-36) U/L ALT 201 H 140 H (4-34) U/L Microbiology - Last 24 Hours (Table) 01/05/22 14:01 Blood Culture Gram Stain - Preliminary Blood 01/05/22 14:01 Blood Culture - Final Blood 01/05/22 13:45 Blood Culture Gram Stain - Preliminary Blood 01/05/22 13:45 Blood Culture - Final Blood Assessment and Plan (1) Joint infection Current Visit: Yes Status: Acute Code(s): M00.9 - PYOGENIC ARTHRITIS, UNSPECIFIED SNOMED Code(s): 334539976 (2) Acromioclavicular joint arthritis Current Visit: No Status: Acute Code(s): M19.019 - PRIMARY OSTEOARTHRITIS, UNSPECIFIED SHOULDER SNOMED Code(s): 338151444 (3) Right shoulder pain Current Visit: No Status: Acute Code(s): M25.511 - PAIN IN RIGHT SHOULDER SNOMED Code(s): 92949718 Plan: The clinical and latest laboratory and MRI findings were discussed with the patient and reviewed with Dr. Bae and Dr. Lilly. It is discussed with the patient that she will have a full workup to evaluate for the possible source of the infection. The bacteria will likely be a staph species. We have her tentatively scheduled for a surgical debridement of the right shoulder on Wednesday. I've ordered vancomycin with pharmacy to dose. We are awaiting evaluation by infectious disease.
[2022-01-06] MEDS: KETOROLAC 15 MG/ML 1 ML VIAL IVP PRN ×3 (10:52→22:48)
[2022-01-06 11:13] LABS: Glucose,Whole Blood 154 mg/dL (75-99)
[2022-01-06] MEDS: INSULIN ASPART (NovoLOG) 100 UNIT/ML VIAL SQ SCH ×3 (13:26→20:36)
--- NOTE | 2022-01-06 13:56 | US ---
EXAMINATION TYPE: US abdomen complete DATE OF EXAM: 01/06/2022 COMPARISON: US CLINICAL HISTORY: Abx LFT. Inpatient with Right shoulder infection EXAM MEASUREMENTS: Liver Length: 15.9 cm Gallbladder Wall: 0.2 cm CBD: 0.4 cm Spleen: 11.3 cm Right Kidney: 10.0 x 6.5 x 5.1 cm Left Kidney: 10.8 x 4.7 x 5.4 cm Pancreas: hyperechoic, but homogeneous Liver: hyperechoic to right renal cortex suggests fatty liver Gallbladder: wnl Evidence for sonographic Barone's sign: wnl CBD: wnl Spleen: wnl Right Kidney: No hydronephrosis or masses seen; smaller, crescent shaped, extracapsular hypoechoic area is noted mid lower pole suggests sonographic "sweat sign" for renal failure Left Kidney: No hydronephrosis or masses seen; crescent shaped, extracapsular hypoechoic area is not ed mid lower pole suggests sonographic "sweat sign" for renal failure Upper IVC: wnl Abd Aorta: wnldistal aorta is gassed out IMPRESSION: 1. Nonspecific pattern to the liver can be seen with hepatic steatosis, diffuse hepatocellular diseas e including hepatitis correlate clinically. 2. Correlate with renal function studies to assess for chronic medical renal disease. No hydronephros is or nephrolithiasis.
--- NOTE | 2022-01-06 14:20 | P.PN ---
Subjective Progress Note Date: 01/06/22 HISTORY OF PRESENT ILLNESS 56-year-old female one of our office patient with past medical history of GERD and mildly elevated blood pressure apparently has been doing well the blood to have significant neck pain and shoulder pain ended up going for deep tissue massage this past week on Wednesday or developed to have severe right shoulder and arm pain could not sleep the night ended up [facility]22 were patient exam was consistent with severe skeletal muscular pain she was prescribed steroid along with muscle relaxer and medication for pain. Patient presented to the emergency department yesterday with severe intractable pain, CT at the ER shows no evidence of joint effusion at the time but had some fluid in the acromioclavicular joint with significant soft tissue swelling of the time. She ended up seen Dr. Brar in the emergency room joint aspiration was done and sent for culture patient was to continue medication. An MRI was schedule for patient as an outpatient but surprisingly the culture came back positive for gram-positivei [facility] was having no fever or chills at the time decided to have patient hospitalized due to MRI urgent and start patient on IV antibiotics right away. 01/06: Patient continues to have significant pain in her right shoulder also complains of pain in her neck and jaw, her has related that she had been scratching the base of her neck and base of the skull quite a bit over the past couple weeks. 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 Patient has been seen by orthopedics and scheduled for I&D of the right shoulder before meals joint for tomorrow. Patient has been afebrile, heart rate 83, blood pressure 162/79, pulse ox 96% on room air. Repeat blood work reveals normal CBC. Sodium 135, chloride 97, creatinine 0.65. AST 61 and ALT 140. Capillary blood glucose 154. Blood cultures are positive for Staphylococcus aureus. Repeat sed rate and CRP ordered. Also hemoglobin A1c ordered. Patient has no history of diabetes. MRI of the right shoulder revealed shoulder joint effusion. Subdeltoid effusion. Fluid accumulation in the subcutaneous tissues as well as around the supra splenitis and infraspinatus muscle consistent with infectious or inflammatory process. No discrete abscess. No evidence of full-thickness rotator cuff tear. Moderate fluid accumulation seen in the before meals joint that could relate to septic arthritis. Abdominal ultrasound revealed nonspecific pattern to the liver can be seen with hepatic steatosis, diffuse hepatocellular disease including hepatitis. Correlate with renal function studies to assess for chronic medical renal disease. No hydronephrosis or nephrolithiasis. REVIEW OF SYSTEMS Constitutional: No fever, no chills, no night sweats. No weight change. No weakness, fatigue or lethargy. No daytime sleepiness. EENT: No headache. No blurred vision or double vision, no loss of vision. No loss of Hearing, no ringing in the ears, no dizziness. No nasal drainage or congestion. No epistaxis. No sore throat. Lungs: No shortness of breath, cough, no sputum production. No wheezing. Cardiovascular: No chest pain, no lower extremity edema. No palpitations. No paroxysmal nocturnal dyspnea. No orthopnea. No lightheadedness or dizziness. No syncopal episodes. Abdominal: No abdominal pain. No nausea, vomiting. No diarrhea. No constipation. No bloody or tarry stools.. No loss of appetite. Genitourinary: No dysuria, increased frequency, urgency. No urinary retention. Musculoskeletal: Significant right shoulder pain and discomfort restriction to motion with neck pain as well., no gait dysfunction, no frequent falls. No back pain. Integumentary: No wounds, no lesions. No rash or pruritus. No unusual bruising . No change in hair or nails. Neurologic: No aphasia. No facial droop. No change in mentation. No head injury. No headache. No paralysis. No paresthesia. Psychiatric: No depression. No anxiety. No mood swings. Endocrine: Noted abnormal blood sugars. No weight change. No excessive sweating or thirst. No cold intolerance. PHYSICAL EXAMINATION Gen: This is a well-developed 56-year-old female, resting in a recliner, no acute respiratory distress. HEENT: Head is atraumatic, normocephalic. Pupils equal, round. Sclerae is anicteric. NECK: Supple. No JVD. No lymphadenopathy. No thyromegaly. LUNGS: Clear to auscultation. No wheezes or rhonchi. No intercostal retractions. HEART: Regular rate and rhythm. No murmur. ABDOMEN: Soft. Bowel sounds are present. No masses. No tenderness. EXTREMITIES: No pedal edema. No calf tenderness. Right shoulder had significant pain and discomfort restriction to motion and discomfort all along the joint the back of her shoulder as well. No sign of abscess or drainable at this point NEUROLOGICAL: Patient is awake, alert and oriented x3. Cranial nerves 2 through 12 are grossly intact. ASSESSMENT AND PLAN 1. Acute infected right before meals joint with staph aureus bacteremia. Sherrie gamboa is currently on vancomycin, consult with infectious disease, scheduled for I&D tomorrow. 2 intractable pain and discomfort in the right shoulder area: Probably could be explained by the infectious site at this point we'll continue pain management. Continue Percocet. Dilaudid discontinued. 3 abnormal liver function test with significantly elevated ALT ST: Not a clear etiology at this point liver function tests might be done. Hepatitis panel ordered. 4 hyperglycemia: Patient blood sugar was 185 Accu-Chek with sliding scale coverage and be done patient has not been diabetic. A1c ordered. 5 elevated blood pressure: Probably affected by her pain and discomfort with start patient on smaller dose of our losartan 50 mg a day and keep patient on hydralazine 25 mg every 6 hour for systolic blood pressure above 140. 6 GERD/GI prophylaxis: Patient will be on Pepcid. 7 DVT prophylaxis: Patient will be on Lovenox 40 mg subcutaneous daily. CODE STATUS: Full code. DISCHARGE PLAN Home Impression and plan of care have been directed as dictated by the signing physician. Ruby Candelario nurse practitioner acting as scribe for signing physician. Objective - Vital Signs Vital signs: Vital Signs Temp 98.7 F 01/06/22 07:37 Pulse 83 01/06/22 07:37 Resp 17 01/06/22 07:37 BP 162/79 01/06/22 07:37 Pulse Ox 96 01/06/22 02:00 Intake & Output 01/05/22 01/06/22 01/06/22 18:59 06:59 18:59 Weight 77.111 kg Other: Voiding Method Toilet # Voids 2 - Labs CBC & Chem 7: 01/06/22 05:16 01/06/22 05:16 Labs: Abnormal Lab Results - Last 24 Hours (Table) 01/05/22 01/05/22 01/06/22 Range/Units 13:45 13:45 05:16 Lymphocytes # 0.6 L (1.0-4.8) k/uL Sodium 136 L 135 L (137-145) mmol/L Chloride 97 L (98-107) mmol/L Glucose 185 H 124 H (74-99) mg/dL AST 135 H 61 H (14-36) U/L ALT 201 H 140 H (4-34) U/L Microbiology - Last 24 Hours (Table) 01/05/22 14:01 Blood Culture Gram Stain - Preliminary Blood 01/05/22 14:01 Blood Culture - Final Blood 01/05/22 13:45 Blood Culture Gram Stain - Preliminary Blood 01/05/22 13:45 Blood Culture - Final Blood
[2022-01-06 14:55] LABS: Appearance,Urine Clear (Clear); Bilirubin,Urine Negative (Negative); Blood,Urine Negative (Negative); Color,Urine Light Yellow; Glucose,Urine (UA) Negative (Negative); Ketones,Urine Negative (Negative); Leukocyte Esterase,Urine Negative (Negative); Nitrite,Urine Negative (Negative); PH, Urine 6.5 (5.0-8.0); Protein,Urine Negative (Negative); Specific Gravity,Urine 1.004 (1.001-1.035); Urobilinogen,Urine <2.0 mg/dL (<2.0)
[2022-01-06] MEDS: SODIUM CHLORIDE 0.9% 1,000 ML IV SCH (15:29)
[2022-01-06] MEDS: ONDANSETRON 4 MG/2 ML VIAL IVP PRN (16:59)
[2022-01-06 17:04] LABS: Glucose,Whole Blood 108 mg/dL (75-99)
[2022-01-06 20:21] LABS: Glucose,Whole Blood 130 mg/dL (75-99)
--- NOTE | 2022-01-06 21:04 | P.CONS ---
History of Present Illness - Reason for Consult Consult date: 01/06/22 Right shoulder septic arthritis Requesting physician: Scot Brar - Chief Complaint Right shoulder pain x few days - History of Present Illness Patient is a 56-year-old female past medical history significant for GERD currently has any problem with the neck pain for the patient did have a miscarriage patient mention when she got home started having a pain to the right shoulder area symptoms started the right shoulder on Wednesday of last week patient mention the pain persisted and become worse describing the pain to be sharp almost 10 out of 10 with no radiation patient has [facility]22 patient has been prescribed steroids and muscle relaxant and was advised physical therapy patient symptom persisted and the patient presented to the ER for 01/05/2022 on arrival to the ER the patient was afebrile patient did have an MRI of the right shoulder shows joint effusion subdeltoid effusion fluid accumulation the subcutaneous tissue concern for possible septic arthritis patient was started on vancomycin blood culture subsequently done which came back positive with the gram-positive cocci infectious disease was consulted for further management of antibiotic therapy Review of Systems Positive point has been mentioned in the HPI rest of the systems are negative Past Medical History Past Medical History: GERD/Reflux, Pneumonia Additional Past Medical History / Comment(s): HTN with only, numbness/tingling bilateral feet toes, bronchitis, UTI, concusion, occasional sciatica, anemia. History of Any Multi-Drug Resistant Organisms: None Reported Past Surgical History: Hysterectomy Additional Past Surgical History / Comment(s): EGD, D&C, bladder sling Past Anesthesia/Blood Transfusion Reactions: Postoperative Nausea & Vomiting (PONV) Smoking Status: Never smoker - Past Family History Father Family Medical History: CVA/TIA, Musculoskeletal Disorder Additional Family Medical History / Comment(s): Gout, parkinson's disease, of a CVA Mother Family Medical History: No Reported History Additional Family Medical History / Comment(s): Mother is 92 yrs old. Medications and Allergies Home Medications Medication Instructions Recorded Confirmed Type Gabapentin [Neurontin] 300 mg PO BID #14 cap 01/04/22 01/05/22 Rx oxyCODONE HCL/ACETAMINOPHEN 1 tab PO Q6HR PRN 3 Days #12 tab 01/04/22 01/05/22 Rx [Percocet 5-325 mg] Albuterol Inhaler [Ventolin Hfa 2 puff INHALATION RT-Q4H PRN 01/05/22 01/05/22 History Inhaler] Baclofen 10 mg PO TID PRN 01/05/22 01/05/22 History Ondansetron Odt [Zofran Odt] 4 mg PO Q6H PRN 01/05/22 01/05/22 History clindamycin HCL [Cleocin] 300 mg PO Q8H 01/05/22 01/05/22 History predniSONE [Deltasone] See Taper PO DIRECTED 01/05/22 01/05/22 History Allergies Allergy/AdvReac Type Severity Reaction Status Date / Time Sulfa (Sulfonamide Allergy Nausea & Verified 01/05/22 15:46 Antibiotics) Vomiting Physical Exam Vitals: Vital Signs Temp Pulse Pulse Resp BP BP Pulse Ox 01/06/22 07:37 98.7 F 83 17 162/79 01/06/22 02:00 98.3 F 95 17 169/91 96 01/05/22 20:40 81 18 01/05/22 20:00 98.0 F 81 18 200/84 98 01/05/22 16:40 98.0 F 84 19 155/91 95 01/05/22 13:36 97.8 F 92 18 159/91 97 Intake and Output 01/05/22 01/06/22 01/06/22 22:59 06:59 14:59 Other: Voiding Method Toilet # Voids 1 2 Weight 77.111 kg GENERAL DESCRIPTION: Middle-aged female lying in bed, no distress. No tachypnea or accessory muscle of respiration use. HEENT: Shows Pallor , no scleral icterus. Oral mucous membrane is dry. No pharyngeal erythema or thrush NECK: Trachea central, no thyromegaly. LUNGS: Unlabored breathing. Clear to auscultation anteriorly. No wheeze or crackle. HEART: S1, S2, regular rate and rhythm. No loud murmur ABDOMEN: Soft, no tenderness , guarding or rigidity, no organomegaly EXTREMITIES: No edema of feet. MUSCULOSKELETAL : Right joint with some swelling and tenderness to touch no blood or any drainage SKIN: No rash, no masses palpable. NEUROLOGICAL: The patient is awake, alert, oriented x3, mood and affect normal. Results CBC & Chem 7: 01/06/22 05:16 01/06/22 05:16 Labs: Abnormal Lab Results - Last 24 Hours (Table) 01/05/22 01/05/22 01/06/22 Range/Units 13:45 13:45 05:16 Lymphocytes # 0.6 L (1.0-4.8) k/uL Sodium 136 L 135 L (137-145) mmol/L Chloride 97 L (98-107) mmol/L Glucose 185 H 124 H (74-99) mg/dL AST 135 H 61 H (14-36) U/L ALT 201 H 140 H (4-34) U/L Microbiology - Last 24 Hours (Table) 01/05/22 14:01 Blood Culture Gram Stain - Preliminary Blood 01/05/22 14:01 Blood Culture - Final Blood 01/05/22 13:45 Blood Culture Gram Stain - Preliminary Blood 01/05/22 13:45 Blood Culture - Final Blood Assessment and Plan (1) Joint infection Current Visit: Yes Status: Acute Code(s): M00.9 - PYOGENIC ARTHRITIS, UNSPECIFIED SNOMED Code(s): 132276877 Plan: 1patient presented to hospital with acute pain to the right shoulder area with no history of any trauma in this patient who did have abdominal MRI and now with evidence of gram-positive bacteremia high clinical suspicious for right shoulder septic arthritis. 2blood cultures will be repeated document clearance of bacteremia. 3await possible washout of the right shoulder tomorrow per orthopedics at which time deep culture should be obtained. 4PICC line will be placed for the patient cleared her bacteremia for outpatient IV antibiotics. Family at bedside multiple questions were answered in layman term. We will follow on clinical condition and cultures to further adjust medication if needed Thank you for this consultation will follow this patient along with you
[2022-01-06] MEDS: CALCIUM CARBONATE 500 MG CHEWABLE PO PRN (21:16)
[2022-01-07 01:46] LABS: Hepatitis B Core IgM Nonreactive (Nonreactive); Hepatitis B Surface Antigen Nonreactive (Nonreactive); Hepatitis C IgG Antibody Nonreactive (Nonreactive)
[2022-01-07] MEDS ORDERED: VANCOMYCIN TROUGH DUE 1 EACH MISC MISCELLANE ONE (03:00)
[2022-01-07 03:25] LABS: African American GFR (CKD) >90 (>60 ml/min/1.73 sqM); Non-African American GFR(CKD) >90 (>60 ml/min/1.73 sqM)
[2022-01-07] MEDS: VANCOMYCIN 1,500 MG in SODIUM CHLORIDE 0.9% 250 ML IVPB SCH (03:46)
[2022-01-07] MEDS: KETOROLAC 15 MG/ML 1 ML VIAL IVP PRN (03:48)
[2022-01-07 06:57] LABS: Glucose,Whole Blood 126 mg/dL (75-99)
[2022-01-07] MEDS: PANTOPRAZOLE 40 MG TABLET PO SCH (07:46)
[2022-01-07] MEDS: GABAPENTIN 300 MG CAP PO SCH ×2 (07:46→22:00)
[2022-01-07] MEDS: oxyCODONE-APAP 5-325MG 1 EACH TAB PO PRN ×2 (08:34→23:07)
--- NOTE | 2022-01-07 08:43 | CT ---
EXAMINATION TYPE: CT sinus wo con DATE OF EXAM: 01/07/2022 COMPARISON: NONE HISTORY: sepsis. Facial pain. CT DLP: 403.7 mGycm. Automated Exposure Control for Dose Reduction was Utilized. TECHNIQUE: CT scan of the sinuses is performed without contrast, axial images are obtained, coronal r eformatted images are also reviewed. FINDINGS: Tiny mucous retention cyst or polyp or concentric mucosal thickening lateral aspect left fr ontal sinus axial image 40 otherwise the paranasal sinuses including the frontal, ethmoid, sphenoid, and maxillary sinuses bilaterally are well aerated without abnormal opacification or suspicious air-f luid levels. The ostiomeatal complex is patent bilaterally on the coronal images. Visualized portion of mastoid air cells show no abnormal opacification. The globes are intact bilate rally. Visualized portion of brain parenchyma is unremarkable. IMPRESSION: No acute sinusitis.
[2022-01-07] MEDS: INSULIN ASPART (NovoLOG) 100 UNIT/ML VIAL SQ SCH ×4 (09:30→22:00)
[2022-01-07] MEDS: LOSARTAN 50 MG TAB PO SCH (09:37)
--- NOTE | 2022-01-07 11:10 | MR ---
EXAMINATION TYPE: MR brain wo/w con DATE OF EXAM: 01/07/2022 COMPARISON: NONE HISTORY: Intractable headache, joint infection TECHNIQUE: Multiplanar, multisequence images of the brain and brainstem is performed without and with IV contras t, utilizing 8 mL intravenous Gadavist . FINDINGS: Diffusion weighted images demonstrate no evidence of a recent infarct or other diffusion ab normality. The ventricular system and cisternal spaces are normal in size and appearance. The brain volume is age appropriate. Occasional small scattered focus of T2 hyperintensity seen throughout the white matter bilaterally. Approximately 15 tiny scattered lesions are seen. Lesions are nonspecific i n appearance and distribution. No suspicious intraparenchymal blood products on T2 Star weighted imag es. Midline structures demonstrate normal morphology. The craniocervical junction appears within normal limits. Post contrast images demonstrate no enhancing masses. There is nonenhancement of portions of the basilar artery with better visualization of the bilateral posterior cerebral arteries . The dura l venous sinuses appear patent. The visualized sinuses are clear and the globes are intact. IMPRESSION: 1. Mild nonspecific white matter changes may be on the basis of altered vascular mechanics related to products of migraine headaches. 2. Nonvisualization of portions of the basilar artery could reflect significant stenosis and/or areas of occlusion. Advise CTA or MRA of the head/[place] of [place] follow-up to further evaluate.
--- NOTE | 2022-01-07 11:37 | P.PN ---
Subjective Progress Note Date: 01/07/22 HISTORY OF PRESENT ILLNESS 56-year-old female one of our office patient with past medical history of GERD and mildly elevated blood pressure apparently has been doing well the blood to have significant neck pain and shoulder pain ended up going for deep tissue massage this past week on Wednesday or developed to have severe right shoulder and arm pain could not sleep the night ended up [facility]22 were patient exam was consistent with severe skeletal muscular pain she was prescribed steroid along with muscle relaxer and medication for pain. Patient presented to the emergency department yesterday with severe intractable pain, CT at the ER shows no evidence of joint effusion at the time but had some fluid in the acromioclavicular joint with significant soft tissue swelling of the time. She ended up seen Dr. Brar in the emergency room joint aspiration was done and sent for culture patient was to continue medication. An MRI was schedule for patient as an outpatient but surprisingly the culture came back positive for gram-positivei patient [facility] was having no fever or chills at the time decided to have patient hospitalized due to MRI urgent and start patient on IV antibiotics right away. 01/06: Patient continues to have significant pain in her right shoulder also complains of pain in her neck and jaw, her has related that she had been scratching the base of her neck and base of the skull quite a bit over the past couple weeks. 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 Patient has been seen by orthopedics and scheduled for I&D of the right shoulder before meals joint for tomorrow. Patient has been afebrile, heart rate 83, blood pressure 162/79, pulse ox 96% on room air. Repeat blood work reveals normal CBC. Sodium 135, chloride 97, creatinine 0.65. AST 61 and ALT 140. Capillary blood glucose 154. Blood cultures are positive for Staphylococcus aureus. Repeat sed rate and CRP ordered. Also hemoglobin A1c ordered. Patient has no history of diabetes. MRI of the right shoulder revealed shoulder joint effusion. Subdeltoid effusion. Fluid accumulation in the subcutaneous tissues as well as around the supra splenitis and infraspinatus muscle consistent with infectious or inflammatory process. No discrete abscess. No evidence of full-thickness rotator cuff tear. Moderate fluid accumulation seen in the before meals joint that could relate to septic arthritis. Abdominal ultrasound revealed nonspecific pattern to the liver can be seen with hepatic steatosis, diffuse hepatocellular disease including hepatitis. Correlate with renal function studies to assess for chronic medical renal disease. No hydronephrosis or nephrolithiasis. 01/07: Patient is complaining of significant headache to the frontal area as well as the occipital region. An MRI of the brain will be ordered. Discussed results of ultrasound finding fatty liver with recommendations for weight loss. Sinus CAT scan was negative. She is scheduled today for I&D of the right shoulder. Patient is continued on vancomycin. Patient remains afebrile. Hepatitis panel was negative. Lipase 69. MRI of the brain reveals mild nonspecific white matter changes may be on the basis of altered vascular mechanics related to proximal migraine headaches. Non-visualization of portions of the basilar artery could reflect significant stenosis and/or areas of occlusion. Advised CTA or MRA of the brain and [place] follow-up to further evaluate. REVIEW OF SYSTEMS Constitutional: No fever, no chills, no night sweats. No weight change. No weakness, fatigue or lethargy. No daytime sleepiness. EENT: No headache. No blurred vision or double vision, no loss of vision. No loss of Hearing, no ringing in the ears, no dizziness. No nasal drainage or congestion. No epistaxis. No sore throat. Lungs: No shortness of breath, cough, no sputum production. No wheezing. Cardiovascular: No chest pain, no lower extremity edema. No palpitations. No paroxysmal nocturnal dyspnea. No orthopnea. No lightheadedness or dizziness. No syncopal episodes. Abdominal: No abdominal pain. No nausea, vomiting. No diarrhea. No constipation. No bloody or tarry stools.. No loss of appetite. Genitourinary: No dysuria, increased frequency, urgency. No urinary retention. Musculoskeletal: Significant right shoulder pain and discomfort restriction to motion with neck pain as well., no gait dysfunction, no frequent falls. No back pain. Integumentary: No wounds, no lesions. No rash or pruritus. No unusual bruising. No change in hair or nails. Neurologic: No aphasia. No facial droop. No change in mentation. No head injury. No headache. No paralysis. No paresthesia. Psychiatric: No depression. No anxiety. No mood swings. Endocrine: Noted abnormal blood sugars. No weight change. No excessive sweating or thirst. No cold intolerance. PHYSICAL EXAMINATION Gen: This is a well-developed 56-year-old female, resting in a recliner, no acute respiratory distress. HEENT: Head is atraumatic, normocephalic. Pupils equal, round. Sclerae is anicteric. NECK: Supple. No JVD. No lymphadenopathy. No thyromegaly. LUNGS: Clear to auscultation. No wheezes or rhonchi. No intercostal retractions. HEART: Regular rate and rhythm. No murmur. ABDOMEN: Soft. Bowel sounds are present. No masses. No tenderness. EXTREMITIES: No pedal edema. No calf tenderness. Right shoulder had significant pain and discomfort restriction to motion and discomfort all along the joint the back of her shoulder as well. No sign of abscess or drainable at this point NEUROLOGICAL: Patient is awake, alert and oriented x3. Cranial nerves 2 through 12 are grossly intact. ASSESSMENT AND PLAN 1. Acute infected right AC joint with staph aureus bacteremia. Patient is currently on vancomycin, consult with infectious disease appreciated, scheduled for I&D this afternoon. 2 intractable pain and discomfort in the right shoulder area: Probably could be explained by the infectious site at this point we'll continue pain management. Continue Percocet. Dilaudid discontinued. 3 abnormal liver function test secondary to fatty liver. Patient advised for weight loss. 4 hyperglycemia: Patient blood sugar was 185 Accu-Chek with sliding scale coverage and be done patient has not been diabetic. A1c ordered. 5 elevated blood pressure: Probably affected by her pain and discomfort with s tart patient on smaller dose of our losartan 50 mg a day and keep patient on hydralazine 25 mg every 6 hour for systolic blood pressure above 140. 6 frontal and occipital headache. MRI of the brain was negative for acute findings. 7 GERD/GI prophylaxis: Patient will be on Pepcid. 8 DVT prophylaxis. SCDs and PAULINE hose. CODE STATUS: Full code. DISCHARGE PLAN Home Impression and plan of care have been directed as dictated by the signing physician. Ruby Candelario nurse practitioner acting as scribe for signing physician. Objective - Vital Signs Vital signs: Vital Signs Temp 97.5 F L 01/07/22 07:32 Pulse 82 04/06/22 07:32 Resp 18 01/07/22 07:32 BP 173/83 01/07/22 07:32 Pulse Ox 96 01/07/22 02:00 Intake & Output 01/06/22 01/07/22 01/07/22 18:59 06:59 18:59 Other: Voiding Method Toilet Toilet # Voids 3 2 - Labs CBC & Chem 7: 01/06/22 05:16 01/07/22 02:57 Labs: Abnormal Lab Results - Last 24 Hours (Table) 01/06/22 01/06/22 01/06/22 Range/Units 05:15 05:16 05:16 ESR (0-20) mm/hr Sodium 135 L (137-145) mmol/L Chloride 97 L (98-107) mmol/L Glucose 124 H (74-99) mg/dL POC Glucose (mg/dL) (75-99) mg/dL Hemoglobin A1c 6.1 H (0.0-6.0) % AST 61 H (14-36) U/L ALT 140 H (4-34) U/L C-Reactive Protein 14.40 H (0.00-0.80) mg/dL 01/06/22 01/06/22 01/06/22 Range/Units 11:12 11:24 17:03 ESR 82 H (0-20) mm/hr Sodium (137-145) mmol/L Chloride (98-107) mmol/L Glucose (74-99) mg/dL POC Glucose (mg/dL) 154 H 108 H (75-99) mg/dL Hemoglobin A1c (0.0-6.0) % AST (14-36) U/L ALT (4-34) U/L C-Reactive Protein (0.00-0.80) mg/dL 01/06/22 01/07/22 Range/Units 20:19 06:56 ESR (0-20) mm/hr Sodium (137-145) mmol/L Chloride (98-107) mmol/L Glucose (74-99) mg/dL POC Glucose (mg/dL) 130 H 126 H (75-99) mg/dL Hemoglobin A1c (0.0-6.0) % AST (14-36) U/L ALT (4-34) U/L C-Reactive Protein (0.00-0.80) mg/dL Microbiology - Last 24 Hours (Table) 01/06/22 11:24 Blood Culture - Final Blood 01/05/22 14:01 Blood Culture Gram Stain - Preliminary Blood Blood Culture - Preliminary Staphylococcus aureus 01/05/22 13:45 Blood Culture Gram Stain - Preliminary Blood 01/05/22 14:01 Blood Culture - Final Blood 01/05/22 13:45 Blood Culture - Final Blood
[2022-01-07] MEDS ORDERED: LACTATED RINGERS 1,000 ML IV ONE (11:58)
[2022-01-07] MEDS ORDERED: ONDANSETRON 4 MG/2 ML VIAL IVP ONE (11:59)
[2022-01-07] MEDS ORDERED: DEXAMETHASONE SOD PHOSPHATE 4 MG/ML 1 ML VIAL IVP ONE (11:59)
[2022-01-07] MEDS ORDERED: VANCOMYCIN 1,750 MG in SODIUM CHLORIDE 0.9% 500 ML 500 ML IVPB SCH (12:00)
[2022-01-07] MEDS ORDERED: SCOPOLAMINE 1 MG/72 HR PATCH TRANSDERM ONE (12:00)
[2022-01-07] MEDS ORDERED: HYDROmorphone (PF) 1 MG/ML ONE (12:03)
[2022-01-07] MEDS ORDERED: fentaNYL (PF) 50 MCG/ML 2 ML AMP ONE (12:03)
[2022-01-07] MEDS ORDERED: LABETALOL 5 MG/ML VIAL MDV ONE (12:03)
[2022-01-07] MEDS ORDERED: SUCCINYLCHOLINE CHLORIDE 100 MG/5 ML SYR IV ONE (12:03)
[2022-01-07] MEDS ORDERED: LIDOCAINE 1% INJ 10MG/ML (20 ML MDV) ONE (12:03)
[2022-01-07] MEDS ORDERED: NEOSTIGMINE 1 MG/ML 10 ML VIAL ONE (12:03)
[2022-01-07] MEDS ORDERED: ROCURONIUM 10 MG/ML (5 ML VIAL) IV ONE (12:03)
[2022-01-07] MEDS ORDERED: GLYCOPYRROLATE 0.2 MG/ML 2 ML VIAL ONE (12:03)
[2022-01-07] MEDS ORDERED: MIDAZOLAM 2 MG/2 ML VIAL ONE (12:03)
[2022-01-07] MEDS ORDERED: DEXAMETHASONE SOD PHOSPHATE 4 MG/ML 1 ML VIAL ONE (12:03)
[2022-01-07] MEDS ORDERED: PROPOFOL 10 MG/ML 20 ML VIAL IV ONE (12:03)
[2022-01-07] MEDS ORDERED: ROPIVACAINE 5 MG/ML 30 ML VIAL ONE (12:03)
--- NOTE | 2022-01-07 14:25 | P.ANPRN ---
Procedure Note - Anesthesia - Nerve Block Performed Right Interscalene Single Time Out Performed: Yes Date of Procedure: 01/07/22 Procedure Start Time: 13:48 Procedure Stop Time: 13:53 Location of Patient: Phase I Indication: Acute Post-Operative Pain, Requested by Surgeon Sedation Type: Awake Preparation: Sterile Prep, Sterile Dressing Position: Sitting Catheter: None Needle Types: Facet Needle Gauge: 21 Ultrasound used to visualize needle placement: Yes Ultrasound used to observe medication spread: Yes Injectate: 0.5% Ropivacaine (see comment for volume) (30 ml + decadron 4 mg) Blood Aspirated: No Pain Paresthesia on Injection Noted: No Resistance on Injection: Normal Image Stored and Saved: Yes Events: Uneventful and Well Tolerated
[2022-01-07] MEDS: ENOXAPARIN 40 MG/0.4 ML SYRINGE SQ SCH (15:14)
[2022-01-07 16:52] LABS: Glucose,Whole Blood 141 mg/dL (75-99)
[2022-01-07 17:33] LABS: Hepatitis A Antibody IgM Nonreactive (Nonreactive)
[2022-01-07 20:45] LABS: Glucose,Whole Blood 219 mg/dL (75-99)
[2022-01-07] MEDS: SODIUM CHLORIDE 0.9% 1,000 ML IV SCH (21:46)
[2022-01-07] MEDS: DOCUSATE 100 MG CAP PO PRN (22:00)
[2022-01-07] MEDS: ACETAMINOPHEN TAB 325 MG TAB PO PRN (23:06)
[2022-01-07] MEDS: CALCIUM CARBONATE 500 MG CHEWABLE PO PRN (23:07)
[2022-01-08] MEDS: VANCOMYCIN 1,750 MG in SODIUM CHLORIDE 0.9% 500 ML 500 ML IVPB SCH ×2 (04:18→16:53)
[2022-01-08] MEDS: KETOROLAC 15 MG/ML 1 ML VIAL IVP PRN ×3 (05:53→18:01)
[2022-01-08 06:16] LABS: African American GFR (CKD) >90 (>60 ml/min/1.73 sqM); Non-African American GFR(CKD) >90 (>60 ml/min/1.73 sqM)
[2022-01-08 07:06] LABS: Glucose,Whole Blood 174 mg/dL (75-99)
[2022-01-08] MEDS: ENOXAPARIN 40 MG/0.4 ML SYRINGE SQ SCH (07:37)
[2022-01-08] MEDS: PANTOPRAZOLE 40 MG TABLET PO SCH (07:38)
[2022-01-08] MEDS: LOSARTAN 50 MG TAB PO SCH (07:38)
[2022-01-08] MEDS: INSULIN ASPART (NovoLOG) 100 UNIT/ML VIAL SQ SCH ×4 (07:38→20:56)
[2022-01-08] MEDS: GABAPENTIN 300 MG CAP PO SCH ×2 (07:38→21:19)
--- NOTE | 2022-01-08 08:37 | P.OP ---
Date of Procedure: 01/07/22 Procedure(s) Performed: PREOPERATIVE DIAGNOSES: 1. Right shoulder acromioclavicular joint sepsis; 2. Right shoulder subacromial fluid collection, possibly septic POSTOPERATIVE DIAGNOSES: 1 Right shoulder acromioclavicular joint sepsis; 2. No evidence of subacromial infection PROCEDURES PERFORMED: 1. Right shoulder acromioclavicular joint incision and drainage, irrigation and sharp excisional debridement using a knife of ligament tissue, and fibrous tissue within the AC joint. 2. Open irrigation of subacromial space with Hemovac drain placement; 3. Deep cultures subacromial space and AC joint, tissue biopsy AC joint ANESTHESIA: human services professional: Anahi Levine PA-C (assistance with: patient positioning, retraction, exposure, hemostasis, fixation, closure, dressing) COMPLICATIONS: None ESTIMATED BLOOD LOSS: 10 cc TOURNIQUET: Not used DISPOSITION: To post-anesthesia care unit INDICATIONS: Mrs. Santiago is a 56-year-old female with a recent history of shoulder pain which has now been worked up as positive for AC joint MRSA infection. She also has current bacteremia with MRSA.she is not currently septic however has severe pain in her right shoulder. MRI has shown significant subacromial bursitis which may be involved in the infection and also a joint effusion of the AC joint consistent with abscess/joint sepsis. She returns to the operative room today for operative management of her AC joint infection. We have also planned on evaluating the subacromial space and clearing out any infection contained within this region. I have explained to her the steps of the operation as well as potential risks and complications as being inclusive of, but not limited to: Bleeding, further infection, scarring,stiffness, failure to relieve symptoms, persistence or worsening of problems, blood clot, pulmonary and pleasant, , osteomyelitis, need for further surgery, and other risks. She is aware of these risks and wishes to proceed with surgery. The consent form has been signed. Procedure: After appropriate consent was obtained from the patient, she was taken to the operating and placed in the supine position. General anesthesia was initiated and after confirmation of such anesthesia, the patient was placed into the beachchair position on a well-padded OR table, with secure placement of the head of stock with the neck in neutral position but the had slightly rotated away from the operative field. Care was taken to make sure that all pressure points were adequately padded and her neck was double checked for standard resting position. Prepping and draping were completed in the usual aseptic fashion using ChloraPrep. The patient had an receiving antibiotics on the floor therefore did not receive any preoperative antibiotics. Incision was created vertically over the AC joint just lateral to the position of the coracoid process. The incision was carried down through skin and into subcu tissues and down to muscular fascia. The AC joint was able to be evaluated directly and a hemostat was placed within the area of the abscess and pus was noted. This process was evacuated using a sponge and deep cultures were taken. The AC joint was then opened on its anterior superior surface by removing ligament tissue and capsule in this region until the interior of the joint was able to be appreciated. deep tissue biopsy was removed using a knife and rongeur. Part of this sample was sent to pathology and some of it was sent to microbiology for analysis. Thorough irrigation was then performed of the interior of the joint. Joint cartilage was noted however there was evidence of standard osteoarthritis. After thorough irrigation of the joint and surrounding soft tissues, the deltoid muscle anteriorly and superiorly was opened in line with its fibers and the subacromial space was accessed and exposed. There was no evidence of significant fluid within the subacromial space and no evidence of pus. The bursa was slightly thickened in this region but the bursal material once removed was indicative of a normal appearing rotator cuff. Digital palpation of the undersurface of the AC joint showed no defects in the fascia or capsule. Deep cultures were taken in this region andthorough subsequent irrigation was performed using pulsatile antibiotic containing solution. The solution was delivered during rotationand range of motion of the shoulderto make sure that all areas of the subacromial bursa were irrigated. Next, a small Hemovac drain was placed within the subacromial space and carried out laterally through the deltoid. The deltoid split was closed securely using 0 Vicryl suture in interrupted fashion. Subcu only, the skin was partially closed directly over the deltoid split but left open superiorly over the AC joint. This area was lightly packed using iodoform quarter-inch strips. Sterile dressing was then applied. The patient tolerated the procedure well, there were no complications and less than 10 cc of blood loss. Plan is for infectious disease to comment on the further cultures that we took today, and return to the operating room on Wednesday for repeat irrigation and debridement and removal of the drain and further management as necessary at that point. She was transferred to recovery room in stable condition. Sponge and needle counts were correct.
--- NOTE | 2022-01-08 09:10 | P.PN ---
Subjective Progress Note Date: 01/08/22 Principal diagnosis: Septic arthritis acromioclavicular joint right shoulder. Severe right shoulder pain. Bacteremia. This is a 56-year-old female who was last seen in our office 01/02/2022 with severe right shoulder pain. She had history of a deep tissue massage the day prior and soon developed severe right shoulder and arm pain. She's had no recent fevers or chills. No numbness or tingling down the arm. She describes the pain as constant and begins about the top of the shoulder and radiates posteriorly and anteriorly as well as down the inner arm. She has had minimal relief of her pain since been prescribed Prednisone, D[place]ott and baclofen. She presented to the emergency department yesterday with continued pain. The patient denies history of gout but states her Father had severe gout. CT scan was performed in the emergency department on 01/04/2022 which showed no evidence of glenohumeral joint effusion. There is some fluid in the acromioclavicular joint. There is also diffuse soft tissue swelling in the shoulder. She was evaluated in the emergency department by Dr. Brar and myself and her acromioclavicular joint was aspirated. I obtained approximately 0.5 mL of bloody joint fluid which was sent for culture. The patient was sent home on strong pain medication per the emergency department with instruction to continue the prednisone and baclofen as well. An MRI has been scheduled through our office for Wednesday. This morning preliminary culture results were available which revealed the Gram stain positive for many gram-positive cocci. I contacted the patient who stated her pain continues to be severe. She reported no fever or chills or any other signs of diffuse sepsis. I reviewed the information with both Dr. Brar and Dr. Lilly who agree with admission for IV antibiotics, evaluation by infectious disease and stat MRI with contrast of the right shoulder. She is tentatively scheduled for surgical debridement Wednesday. 01/06/2022: Gabriel continues to have severe pain to the right shoulder. She is alert and oriented 3. She is afebrile. Blood cultures are positive 2 for gram-positive cocci in clusters. The patient is evaluated today by myself and Dr. Bae simultaneously. A detailed history is obtained. She's had no recent infections that she is aware of. She's had no recent dental work. She reports no cuts or abrasions. No recent gynecological visits. No history of hemorrhoid or vaginal irritation. 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 She states that she was working 16-17 hour days and knows that she was not taking very good care of herself at that time. She feels that she may have had a urinary tract infection during that time and wasn't taking time to urinate. She states that she was able to flush with lots of water and her symptoms did improve. She does have a dog but has not had any recent scratches or abrasions from the pet. We are awaiting evaluation by infectious disease. 01/08/2022: Today. Day #1 status post irrigation and debridement of the right shoulder acromioclavicular joint and subacromial space. The patient states that her pain is significantly improved today. She is afebrile. She has no new complaints or concerns. Vital signs are stable. Objective - Vital Signs Vital signs: Vital Signs Temp 97.5 F L 01/08/22 07:36 Pulse 69 01/08/22 07:36 Resp 19 01/08/22 07:36 BP 135/81 01/08/22 07:36 Pulse Ox 96 01/08/22 07:36 Intake & Output 01/07/22 01/08/22 01/08/22 18:59 06:59 18:59 Intake Total 650 Output Total 570 700 650 Balance 80 -700 -650 Intake: IV 650 Output: Urine 550 700 650 Estimated Blood Loss 20 Other: Voiding Method Toilet Toilet # Voids 3 - Exam This is a pleasant 56-year-old female in no acute distress. Exam of the right shoulder reveals that her dressing is clean, dry and intact. Hemovac drain in place. She is able to move the arm a little better today. She has full finger motion without difficulty or pain. Neurovascular status to the upper extremity is intact. - Labs CBC & Chem 7: 01/06/22 05:16 01/08/22 05:22 Labs: Abnormal Lab Results - Last 24 Hours (Table) 01/07/22 01/07/22 01/08/22 Range/Units 16:51 20:43 05:22 Creatinine 0.46 L (0.52-1.04) mg/dL POC Glucose (mg/dL) 141 H 219 H (75-99) mg/dL 01/08/22 Range/Units 07:04 Creatinine (0.52-1.04) mg/dL POC Glucose (mg/dL) 174 H (75-99) mg/dL Microbiology - Last 24 Hours (Table) 01/07/22 12:50 Gram Stain - Preliminary Shoulder - Right Wound Culture - Preliminary 01/07/22 12:50 Gram Stain - Preliminary Arm - Right Wound Culture - Preliminary 01/07/22 12:50 Gram Stain - Preliminary Shoulder - Right Wound Culture - Preliminary 01/07/22 12:50 Gram Stain - Preliminary Shoulder - Right Wound Culture - Preliminary 01/07/22 12:50 Gram Stain - Preliminary Arm - Right Tissue Culture - Preliminary 01/07/22 17:00 Nasal Culture - Preliminary Nasal Swab 01/07/22 12:50 Anaerobic Culture - Preliminary Shoulder - Right 01/07/22 12:50 Anaerobic Culture - Preliminary Shoulder - Right 01/07/22 12:50 Anaerobic Culture - Preliminary Arm - Right 01/07/22 12:50 Anaerobic Culture - Preliminary Shoulder - Right 01/07/22 12:50 Anaerobic Culture - Preliminary Arm - Right 01/06/22 11:24 Blood Culture Gram Stain - Preliminary Blood 01/05/22 13:45 Blood Culture Gram Stain - Preliminary Blood Blood Culture - Preliminary Presumptive MRSA 01/05/22 14:01 Blood Culture Gram Stain - Preliminary Blood Blood Culture - Preliminary Presumptive MRSA 01/06/22 11:24 Blood Culture - Final Blood Assessment and Plan (1) Joint infection Current Visit: Yes Status: Acute Code(s): M00.9 - PYOGENIC ARTHRITIS, UNSPECIFIED SNOMED Code(s): 779352377 (2) Acromioclavicular joint arthritis Current Visit: No Status: Acute Code(s): M19.019 - PRIMARY OSTEOARTHRITIS, UNSPECIFIED SHOULDER SNOMED Code(s): 791442835 (3) Right shoulder pain Current Visit: No Status: Acute Code(s): M25.511 - PAIN IN RIGHT SHOULDER SNOMED Code(s): 73090239 Plan: The clinical findings of been discussed with the patient. Dr. Bae was present at the time of our exam as well. She is to continue with IV antibiotics. The plan is for PICC line when cleared with Dr. Lott. We're planning repeat irrigation and debridement of the right shoulder tomorrow.
[2022-01-08 11:00] LABS: Glucose,Whole Blood 86 mg/dL (75-99)
[2022-01-08] MEDS: ACETAMINOPHEN TAB 325 MG TAB PO PRN (11:00)
--- NOTE | 2022-01-08 11:12 | P.PN ---
Subjective Progress Note Date: 01/08/22 HISTORY OF PRESENT ILLNESS 56-year-old female one of our office patient with past medical history of GERD and mildly elevated blood pressure apparently has been doing well the blood to have significant neck pain and shoulder pain ended up going for deep tissue massage this past week on Wednesday or developed to have severe right shoulder and arm pain could not sleep the night ended up [facility]22 were patient exam was consistent with severe skeletal muscular pain she was prescribed steroid along with muscle relaxer and medication for pain. Patient presented to the emergency department yesterday with severe intractable pain, CT at the ER shows no evidence of joint effusion at the time but had some fluid in the acromioclavicular joint with significant soft tissue swelling of the time. She ended up seen Dr. Brar in the emergency room joint aspiration was done and sent for culture patient was to continue medication. An MRI was schedule for patient as an outpatient but surprisingly the culture came back positive for gram-positivei [facility] was having no fever or chills at the time decided to have patient hospitalized due to MRI urgent and start patient on IV antibiotics right away. 01/06: Patient continues to have significant pain in her right shoulder also complains of pain in her neck and jaw, her has related that she had been scratching the base of her neck and base of the skull quite a bit over the past couple weeks. 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 Patient has been seen by orthopedics and scheduled for I&D of the right shoulder before meals joint for tomorrow. Patient has been afebrile, heart rate 83, blood pressure 162/79, pulse ox 96% on room air. Repeat blood work reveals normal CBC. Sodium 135, chloride 97, creatinine 0.65. AST 61 and ALT 140. Capillary blood glucose 154. Blood cultures are positive for Staphylococcus aureus. Repeat sed rate and CRP ordered. Also hemoglobin A1c ordered. Patient has no history of diabetes. MRI of the right shoulder revealed shoulder joint effusion. Subdeltoid effusion. Fluid accumulation in the subcutaneous tissues as well as around the supra splenitis and infraspinatus muscle consistent with infectious or inflammatory process. No discrete abscess. No evidence of full-thickness rotator cuff tear. Moderate fluid accumulation seen in the before meals joint that could relate to septic arthritis. Abdominal ultrasound revealed nonspecific pattern to the liver can be seen with hepatic steatosis, diffuse hepatocellular disease including hepatitis. Correlate with renal function studies to assess for chronic medical renal disease. No hydronephrosis or nephrolithiasis. 01/07: Patient is complaining of significant headache to the frontal area as well as the occipital region. An MRI of the brain will be ordered. Discussed results of ultrasound finding fatty liver with recommendations for weight loss. Sinus CAT scan was negative. She is scheduled today for I&D of the right shoulder. Patient is continued on vancomycin. Patient remains afebrile. Hepatitis panel was negative. Lipase 69. MRI of the brain reveals mild nonspecific white matter changes may be on the basis of altered vascular mechanics related to proximal migraine headaches. Non-visualization of portions of the basilar artery could reflect significant stenosis and/or areas of occlusion. Advised CTA or MRA of the brain and [place] [facility] [place] follow-up to further evaluate. 01/08: Yesterday, patient underwent right shoulder before meals joint incision and drainage irrigation and sharp excisional debridement of ligament tissue and fibrous tissue within the before meals joint. Open irrigation of subacromial with Hemovac drain placement. Deep cultures from subacromial space and before meals joint, tissue biopsy before meals joint were obtained. Patient states that her pain in her right shoulder is significantly improved but she did have a block done yesterday. She states the pain is now a dull ache. She states that she had an episode last evening with chest pain and cold sweats and EKG showed no acute findings. Blood sugar was also up to 219 last evening. A1c came back at 6.1. Repeat blood cultures to be obtained today but previous were positive for MRSA. Wound culture presumptive MRSA. Patient has been continued on vancomycin. She is scheduled for a second debridement of the right shoulder tomorrow. REVIEW OF SYSTEMS Constitutional: No fever, no chills, no night sweats. No weight change. No weakness, fatigue or lethargy. No daytime sleepiness. EENT: No headache. No blurred vision or double vision, no loss of vision. No loss of Hearing, no ringing in the ears, no dizziness. No nasal drainage or congestion. No epistaxis. No sore throat. Lungs: No shortness of breath, cough, no sputum production. No wheezing. Cardiovascular: No chest pain, no lower extremity edema. No palpitations. No paroxysmal nocturnal dyspnea. No orthopnea. No lightheadedness or dizziness. No syncopal episodes. Abdominal: No abdominal pain. No nausea, vomiting. No diarrhea. No constipation. No bloody or tarry stools.. No loss of appetite. Genitourinary: No dysuria, increased frequency, urgency. No urinary retention. Musculoskeletal: Right shoulder restriction to motion with neck pain as well., no gait dysfunction, no frequent falls. No back pain. Reports right shoulder pain improving Integumentary: No wounds, no lesions. No rash or pruritus. No unusual bruising. No change in hair or nails. Neurologic: No aphasia. No facial droop. No change in mentation. No head injury. No headache. No paralysis. No paresthesia. Psychiatric: No depression. No anxiety. No mood swings. Endocrine: Noted abnormal blood sugars. No weight change. No excessive sweating or thirst. No cold intolerance. PHYSICAL EXAMINATION Gen: This is a well-developed 56-year-old female, resting in a recliner, no acute respiratory distress. HEENT: Head is atraumatic, normocephalic. Pupils equal, round. Sclerae is anicteric. NECK: Supple. No JVD. No lymphadenopathy. No thyromegaly. LUNGS: Clear to auscultation. No wheezes or rhonchi. No intercostal retractions. HEART: Regular rate and rhythm. No murmur. ABDOMEN: Soft. Bowel sounds are present. No masses. No tenderness. EXTREMITIES: No pedal edema. No calf tenderness. Right shoulder has large dressing in place. NEUROLOGICAL: Patient is awake, alert and oriented x3. Cranial nerves 2 through 12 are grossly intact. ASSESSMENT AND PLAN 1. Acute infected right AC joint with staph aureus bacteremia status post I&D on 01/07, repeat scheduled for 01/09. Patient is currently on vancomycin, consult with infectious disease appreciated. 2 intractable pain and discomfort in the right shoulder area: Probably could be explained by the infectious site at this point we'll continue pain management. Continue Percocet. Dilaudid discontinued. 3 abnormal liver function test secondary to fatty liver. Patient advised for weight loss. 4 hyperglycemia: Patient blood sugar was 185 Accu-Chek with sliding scale coverage and be done patient has not been diabetic. A1c ordered. 5 elevated blood pressure: Probably affected by her pain and discomfort with start patient on smaller dose of our losartan 50 mg a day and keep patient on hydralazine 25 mg every 6 hour for systolic blood pressure above 140. 6 frontal and occipital headache. MRI of the brain was negative for acute findings. 7 GERD/GI prophylaxis: Patient will be on Pepcid. 8 DVT prophylaxis. SCDs and PAULINE hose. CODE STATUS: Full code. DISCHARGE PLAN Home Impression and plan of care have been directed as dictated by the signing physician. Ruby Candelario nurse practitioner acting as scribe for signing physician. Objective - Vital Signs Vital signs: Vital Signs Temp 97.5 F L 01/08/22 07:36 Pulse 69 01/08/22 07:36 Resp 19 01/08/22 07:36 BP 135/81 01/08/22 07:36 Pulse Ox 96 01/08/22 07:36 Intake & Output 01/07/22 01/08/22 01/08/22 18:59 06:59 18:59 Intake Total 650 Output Total 570 700 Balance 80 -700 Intake: IV 650 Output: Urine 550 700 Estimated Blood Loss 20 Other: Voiding Method Toilet Toilet # Voids 3 - Labs CBC & Chem 7: 01/06/22 05:16 01/08/22 05:22 Labs: Abnormal Lab Results - Last 24 Hours (Table) 01/07/22 01/07/22 01/08/22 Range/Units 16:51 20:43 05:22 Creatinine 0.46 L (0.52-1.04) mg/dL POC Glucose (mg/dL) 141 H 219 H (75-99) mg/dL 01/08/22 Range/Units 07:04 Creatinine (0.52-1.04) mg/dL POC Glucose (mg/dL) 174 H (75-99) mg/dL Microbiology - Last 24 Hours (Table) 01/07/22 12:50 Gram Stain - Preliminary Shoulder - Right Wound Culture - Preliminary 01/07/22 12:50 Gram Stain - Preliminary Arm - Right Wound Culture - Preliminary 01/07/22 12:50 Gram Stain - Preliminary Shoulder - Right Wound Culture - Preliminary 01/07/22 12:50 Gram Stain - Preliminary Shoulder - Right Wound Culture - Preliminary 01/07/22 12:50 Gram Stain - Preliminary Arm - Right Tissue Culture - Preliminary 01/07/22 17:00 Nasal Culture - Preliminary Nasal Swab 01/07/22 12:50 Anaerobic Culture - Preliminary Shoulder - Right 01/07/22 12:50 Anaerobic Culture - Preliminary Shoulder - Right 01/07/22 12:50 Anaerobic Culture - Preliminary Arm - Right 01/07/22 12:50 Anaerobic Culture - Preliminary Shoulder - Right 01/07/22 12:50 Anaerobic Culture - Preliminary Arm - Right 01/06/22 11:24 Blood Culture Gram Stain - Preliminary Blood 01/05/22 13:45 Blood Culture Gram Stain - Preliminary Blood Blood Culture - Preliminary Presumptive MRSA 01/05/22 14:01 Blood Culture Gram Stain - Preliminary Blood Blood Culture - Preliminary Presumptive MRSA 01/06/22 11:24 Blood Culture - Final Blood
[2022-01-08] MEDS: SODIUM CHLORIDE 0.9% 1,000 ML IV SCH (15:22)
[2022-01-08 16:20] LABS: Glucose,Whole Blood 107 mg/dL (75-99)
[2022-01-08 20:50] LABS: Glucose,Whole Blood 95 mg/dL (75-99)
[2022-01-08] MEDS: hydrALAZINE HCL 25 MG TAB PO PRN (21:19)
[2022-01-08] MEDS: oxyCODONE-APAP 5-325MG 1 EACH TAB PO PRN (21:19)
[2022-01-08] MEDS: TEMAZEPAM 15 MG CAP PO PRN (21:38)
--- NOTE | 2022-01-08 23:22 | P.PN ---
Subjective Progress Note Date: 01/07/22 Principal diagnosis: MRSA bacteremia and right shoulder septic arthritis Patient is a 56 year female presenting to the hospital with intractable pain to the right shoulder area in this patient who did have a MRSA bacteremia concerning for right shoulder septic arthritis. On today's evaluation that is 01/07/2022, the patient denies having any fever or any chills, pain to the right is currently controlled with pain medication, patient denies having any chest pain or shortness of cough no nausea no vomiting no abdominal pain no diarrhea Objective - Vital Signs Vital signs: Vital Signs Temp 98.1 F 01/07/22 13:15 Pulse 73 01/07/22 13:59 Resp 26 H 01/07/22 13:59 BP 184/74 01/07/22 13:59 Pulse Ox 96 01/07/22 13:59 Intake & Output 01/06/22 01/07/22 01/07/22 18:59 06:59 18:59 Intake Total 200 Output Total 20 Balance 180 Intake: IV 200 Output: Estimated Blood Loss 20 Other: Voiding Method Toilet Toilet # Voids 3 2 - Exam GENERAL DESCRIPTION: Middle-age female lying in bed in no distress RESPIRATORY SYSTEM: Unlabored breathing , decreased breath sounds at bases HEART: S1 S2 regular rate and rhythm , ABDOMEN: Soft , no tenderness EXTREMITIES: Right shoulder with some swelling no redness or drainage - Labs CBC & Chem 7: 01/06/22 05:16 01/08/22 05:22 Labs: Abnormal Lab Results - Last 24 Hours (Table) 01/06/22 01/06/22 01/06/22 Range/Units 05:15 05:16 11:24 ESR 82 H (0-20) mm/hr POC Glucose (mg/dL) (75-99) mg/dL Hemoglobin A1c 6.1 H (0.0-6.0) % C-Reactive Protein 14.40 H (0.00-0.80) mg/dL 01/06/22 01/06/22 01/07/22 Range/Units 17:03 20:19 06:56 ESR (0-20) mm/hr POC Glucose (mg/dL) 108 H 130 H 126 H (75-99) mg/dL Hemoglobin A1c (0.0-6.0) % C-Reactive Protein (0.00-0.80) mg/dL Microbiology - Last 24 Hours (Table) 01/06/22 11:24 Blood Culture Gram Stain - Preliminary Blood 01/05/22 13:45 Blood Culture Gram Stain - Preliminary Blood Blood Culture - Preliminary Presumptive MRSA 01/05/22 14:01 Blood Culture Gram Stain - Preliminary Blood Blood Culture - Preliminary Presumptive MRSA 01/06/22 11:24 Blood Culture - Final Blood Assessment and Plan (1) Joint infection Current Visit: Yes Status: Acute Code(s): M00.9 - PYOGENIC ARTHRITIS, UNSPECIFIED SNOMED Code(s): 975686108 Plan: 1patient presented to hospital with acute pain to the right shoulder area with no history of any trauma in this patient who did have abdominal MRI and now with evidence of gram-positive bacteremia high clinical suspicious for right shoulder septic arthritis. 2blood cultures will be repeated daily to document clearance of bacteremia. 3await possible washout of the right shoulder per orthopedics at which time deep culture should be obtained. 4PICC line will be placed for the patient once the patient has cleared her bacteremia for outpatient IV antibiotics. 5-Vancomycin pharmacy to dose target trough of 15 while watching kidney function and Vanco trough closely Time with Patient: Less than 30
--- NOTE | 2022-01-08 23:23 | P.PN ---
Subjective Progress Note Date: 01/08/22 Principal diagnosis: MRSA bacteremia and right shoulder septic arthritis Patient is a 56 year female presenting to the hospital with intractable pain to the right shoulder area in this patient who did have a MRSA bacteremia concerning for right shoulder septic arthritis. Patient is status post washout of the right shoulder this morning per orthopedics On today's evaluation that is 01/08/2022, the patient remains to be afebrile, the patient pain to the right is currently controlled with nerve block, patient denies having any chest pain or shortness of cough no nausea no vomiting no abdominal pain no diarrhea Objective - Vital Signs Vital signs: Vital Signs Temp 97.6 F 01/08/22 13:24 Pulse 72 01/08/22 13:24 Resp 19 01/08/22 13:24 BP 150/76 01/08/22 13:24 Pulse Ox 99 01/08/22 13:24 Intake & Output 01/07/22 01/08/22 01/08/22 18:59 06:59 18:59 Intake Total 650 Output Total 019 256 8467 Balance 80 -700 -1350 Intake: IV 650 Output: Urine 144 761 7629 Estimated Blood Loss 20 Other: Voiding Method Toilet Toilet # Voids 3 - Exam GENERAL DESCRIPTION: Middle-age female lying in bed in no distress RESPIRATORY SYSTEM: Unlabored breathing , decreased breath sounds at bases HEART: S1 S2 regular rate and rhythm , ABDOMEN: Soft , no tenderness EXTREMITIES: Right shoulder with some swelling no redness or drainage - Labs CBC & Chem 7: 01/06/22 05:16 01/08/22 05:22 Labs: Abnormal Lab Results - Last 24 Hours (Table) 01/07/22 01/07/22 01/08/22 Range/Units 16:51 20:43 05:22 Creatinine 0.46 L (0.52-1.04) mg/dL POC Glucose (mg/dL) 141 H 219 H (75-99) mg/dL 01/08/22 Range/Units 07:04 Creatinine (0.52-1.04) mg/dL POC Glucose (mg/dL) 174 H (75-99) mg/dL Microbiology - Last 24 Hours (Table) 01/07/22 17:00 Nasal Culture - Preliminary Nasal Swab Presumptive Staph aureus 01/06/22 11:24 Blood Culture Gram Stain - Preliminary Blood Blood Culture - Preliminary Presumptive MRSA 01/07/22 12:50 Gram Stain - Preliminary Shoulder - Right Wound Culture - Preliminary Presumptive MRSA 01/07/22 12:50 Gram Stain - Preliminary Shoulder - Right Wound Culture - Preliminary Presumptive MRSA 01/07/22 12:50 Gram Stain - Preliminary Shoulder - Right Wound Culture - Preliminary Presumptive MRSA 01/07/22 12:50 Gram Stain - Preliminary Arm - Right Wound Culture - Preliminary Presumptive MRSA 01/07/22 12:50 Gram Stain - Preliminary Arm - Right Tissue Culture - Preliminary Presumptive MRSA 01/05/22 13:45 Blood Culture Gram Stain - Final Blood Blood Culture - Final Methicillin resist S. aureus 01/05/22 14:01 Blood Culture Gram Stain - Final Blood Blood Culture - Final Methicillin resist S. aureus 01/07/22 12:50 Anaerobic Culture - Preliminary Shoulder - Right 01/07/22 12:50 Anaerobic Culture - Preliminary Shoulder - Right 01/07/22 12:50 Anaerobic Culture - Preliminary Arm - Right 01/07/22 12:50 Anaerobic Culture - Preliminary Shoulder - Right 01/07/22 12:50 Anaerobic Culture - Preliminary Arm - Right Assessment and Plan (1) Joint infection Current Visit: Yes Status: Acute Code(s): M00.9 - PYOGENIC ARTHRITIS, UNSPECIFIED SNOMED Code(s): 571640393 Plan: 1patient presented to hospital with acute pain to the right shoulder area with no history of any trauma in this patient who did have abdominal MRI and now with evidence of gram-positive bacteremia high clinical suspicious for right shoulder septic arthritis. 2blood cultures will be repeated daily to document clearance of bacteremia. 3 patient is status post washout of the right shoulder per orthopedics and deep cultures on 01/08/2022 4 patient to continue with Vancomycin pharmacy to dose target trough of 15 while watching kidney function and Vanco trough closely Time with Patient: Less than 30
[2022-01-09] MEDS: KETOROLAC 15 MG/ML 1 ML VIAL IVP PRN ×2 (00:34→06:09)
[2022-01-09] MEDS: VANCOMYCIN 1,750 MG in SODIUM CHLORIDE 0.9% 500 ML 500 ML IVPB SCH ×2 (04:44→16:31)
[2022-01-09] MEDS: oxyCODONE-APAP 5-325MG 1 EACH TAB PO PRN ×2 (04:44→11:48)
[2022-01-09 06:14] LABS: African American GFR (CKD) >90 (>60 ml/min/1.73 sqM); Non-African American GFR(CKD) >90 (>60 ml/min/1.73 sqM)
[2022-01-09 06:52] LABS: Glucose,Whole Blood 99 mg/dL (75-99)
[2022-01-09] MEDS: INSULIN ASPART (NovoLOG) 100 UNIT/ML VIAL SQ SCH ×4 (07:56→23:12)
[2022-01-09] MEDS: PANTOPRAZOLE 40 MG TABLET PO SCH (07:57)
[2022-01-09] MEDS: ENOXAPARIN 40 MG/0.4 ML SYRINGE SQ SCH (08:03)
[2022-01-09] MEDS: LOSARTAN 50 MG TAB PO SCH (08:03)
[2022-01-09] MEDS: GABAPENTIN 300 MG CAP PO SCH ×2 (08:03→23:12)
[2022-01-09] MEDS ORDERED: LOSARTAN 25 MG TAB PO STA (09:21)
--- NOTE | 2022-01-09 10:35 | P.PN ---
Subjective Progress Note Date: 01/09/22 HISTORY OF PRESENT ILLNESS 56-year-old female one of our office patient with past medical history of GERD and mildly elevated blood pressure apparently has been doing well the blood to have significant neck pain and shoulder pain ended up going for deep tissue massage this past week on Wednesday or developed to have severe right shoulder and arm pain could not sleep the night ended up seen Dr. Whelan [facility]2022 were patient exam was consistent with severe skeletal muscular pain she was prescribed steroid along with muscle relaxer and medication for pain. Patient presented to the emergency department yesterday with severe intractable pain, CT at the ER shows no evidence of joint effusion at the time but had some fluid in the acromioclavicular joint with significant soft tissue swelling of the time. She ended up seen Dr. Brar in the emergency room joint aspiration was done and sent for culture patient was to continue medication. An MRI was schedule for patient as an outpatient but surprisingly the culture came back positive for gram-positivei patient [facility] was having no fever or chills at the time decided to have patient hospitalized due to MRI urgent and start patient on IV antibiotics right away. 01/06: Patient continues to have significant pain in her right shoulder also complains of pain in her neck and jaw, her has related that she had been scratching the base of her neck and base of the skull quite a bit over the past couple weeks. 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 Patient has been seen by orthopedics and scheduled for I&D of the right shoulder before meals joint for tomorrow. Patient has been afebrile, heart rate 83, blood pressure 162/79, pulse ox 96% on room air. Repeat blood work reveals normal CBC. Sodium 135, chloride 97, creatinine 0.65. AST 61 and ALT 140. Capillary blood glucose 154. Blood cultures are positive for Staphylococcus aureus. Repeat sed rate and CRP ordered. Also hemoglobin A1c ordered. Patient has no history of diabetes. MRI of the right shoulder revealed shoulder joint effusion. Subdeltoid effusion. Fluid accumulation in the subcutaneous tissues as well as around the supra splenitis and infraspinatus muscle consistent with infectious or inflammatory process. No discrete abscess. No evidence of full-thickness rotator cuff tear. Moderate fluid accumulation seen in the before meals joint that could relate to septic arthritis. Abdominal ultrasound revealed nonspecific pattern to the liver can be seen with hepatic steatosis, diffuse hepatocellular disease including hepatitis. Correlate with renal function studies to assess for chronic medical renal disease. No hydronephrosis or nephrolithiasis. 01/07: Patient is complaining of significant headache to the frontal area as well as the occipital region. An MRI of the brain will be ordered. Discussed results of ultrasound finding fatty liver with recommendations for weight loss. Sinus CAT scan was negative. She is scheduled today for I&D of the right shoulder. Patient is continued on vancomycin. Patient remains afebrile. Hepatitis panel was negative. Lipase 69. MRI of the brain reveals mild nonspecific white matter changes may be on the basis of altered vascular mechanics related to proximal migraine headaches. Non-visualization of portions of the basilar artery could reflect significant stenosis and/or areas of occlusion. Advised CTA or MRA of the brain and [place] [facility] [place] follow-up to further evaluate. 01/08: Yesterday, patient underwent right shoulder before meals joint incision and drainage irrigation and sharp excisional debridement of ligament tissue and fibrous tissue within the before meals joint. Open irrigation of subacromial with Hemovac drain placement. Deep cultures from subacromial space and before meals joint, tissue biopsy before meals joint were obtained. Patient states that her pain in her right shoulder is significantly improved but she did have a block done yesterday. She states the pain is now a dull ache. She states that she had an episode last evening with chest pain and cold sweats and EKG showed no acute findings. Blood sugar was also up to 219 last evening. A1c came back at 6.1. Repeat blood cultures to be obtained today but previous were positive for MRSA. Wound culture presumptive MRSA. Patient has been continued on vancomycin. She is scheduled for a second debridement of the right shoulder tomorrow. 01/09: Patient states that pain is returned and was severe similar to the pain that brought her into the hospital and started at 5 PM last night. She was able to sleep last night but woke up at 4 with severe pain. Patient is scheduled for second I&D today with Dr. Lilly.she denies having any fever or chills. She has been afebrile, heart rate 80s, blood pressure 164/78 and losartan will be adjusted and increased to 75 mg twice daily. Pulse ox is 93% on room air. REVIEW OF SYSTEMS Constitutional: No fever, no chills, no night sweats. No weight change. No weakness, fatigue or lethargy. No daytime sleepiness. EENT: No headache. No blurred vision or double vision, no loss of vision. No loss of Hearing, no ringing in the ears, no dizziness. No nasal drainage or congestion. No epistaxis. No sore throat. Lungs: No shortness of breath, cough, no sputum production. No wheezing. Cardiovascular: No chest pain, no lower extremity edema. No palpitations. No paroxysmal nocturnal dyspnea. No orthopnea. No lightheadedness or dizziness. No syncopal episodes. Abdominal: No abdominal pain. No nausea, vomiting. No diarrhea. No constipation. No bloody or tarry stools.. No loss of appetite. Genitourinary: No dysuria, increased frequency, urgency. No urinary retention. Musculoskeletal: Right shoulder restriction to motion with neck pain as well., no gait dysfunction, no frequent falls. No back pain. Reports severe right shoulder pain. Integumentary: No wounds, no lesions. No rash or pruritus. No unusual bru ising. No change in hair or nails. Neurologic: No aphasia. No facial droop. No change in mentation. No head injury. No headache. No paralysis. No paresthesia. Psychiatric: No depression. No anxiety. No mood swings. Endocrine: Noted abnormal blood sugars. No weight change. No excessive sweating or thirst. No cold intolerance. PHYSICAL EXAMINATION Gen: This is a well-developed 56-year-old female, resting in a recliner, no acute respiratory distress. HEENT: Head is atraumatic, normocephalic. Pupils equal, round. Sclerae is anicteric. NECK: Supple. No JVD. No lymphadenopathy. No thyromegaly. LUNGS: Clear to auscultation. No wheezes or rhonchi. No intercostal retractions. HEART: Regular rate and rhythm. No murmur. ABDOMEN: Soft. Bowel sounds are present. No masses. No tenderness. EXTREMITIES: No pedal edema. No calf tenderness. Right shoulder has large dressing in place. NEUROLOGICAL: Patient is awake, alert and oriented x3. Cranial nerves 2 through 12 are grossly intact. ASSESSMENT AND PLAN 1. Acute infected right AC joint with MRSA bacteremia status post I&D on 01/07, repeat scheduled for 01/09. Patient is currently on vancomycin, consult with infectious disease appreciated, Percocet for pain. 2 intractable pain and discomfort in the right shoulder area: Probably could be explained by the infectious site at this point we'll continue pain management. Continue Percocet. Dilaudid discontinued. 3 abnormal liver function test secondary to fatty liver. Patient advised for weight loss. 4 hyperglycemiaContinueek with sliding scale coverage and be done patient has not been diabetic. A16.1 5 hypertension. Patient started on losartan will be increased to 75 mg daily and continueon hydralazine 25 mg every 6 hour for systolic blood pressure above 140. 6 frontal and occipital headache. MRI of the brain was negative for acute findings. 7 GERD/GI prophylaxis: Patient will be on Pepcid. 8 DVT prophylaxis. SCDs and PAULINE hose. CODE STATUS: Full code. DISCHARGE PLAN Home Impression and plan of care have been directed as dictated by the signing physician. Ruby Candelario nurse practitioner acting as scribe for signing physician. Objective - Vital Signs Vital signs: Vital Signs Temp 98.5 F 01/09/22 07:22 Pulse 80 01/09/22 07:22 Resp 18 01/09/22 08:00 BP 164/78 01/09/22 07:22 Pulse Ox 93 L 01/09/22 07:22 Intake & Output 01/08/22 01/09/22 01/09/22 18:59 06:59 18:59 Intake Total 1080 Output Total 1750 Balance -670 Intake: Oral 1080 Output: Urine 1750 Other: Voiding Method Toilet Toilet # Voids 4 - Labs CBC & Chem 7: 01/06/22 05:16 01/09/22 05:29 Labs: Abnormal Lab Results - Last 24 Hours (Table) 01/08/22 Range/Units 16:16 POC Glucose (mg/dL) 107 H (75-99) mg/dL Microbiology - Last 24 Hours (Table) 01/08/22 05:22 Blood Culture Gram Stain - Preliminary Blood 01/08/22 05:22 Blood Culture - Final Blood 01/07/22 17:00 Nasal Culture - Preliminary Nasal Swab Presumptive Staph aureus 01/06/22 11:24 Blood Culture Gram Stain - Preliminary Blood Blood Culture - Preliminary Presumptive MRSA 01/07/22 12:50 Gram Stain - Preliminary Shoulder - Right Wound Culture - Preliminary Presumptive MRSA 01/07/22 12:50 Gram Stain - Preliminary Shoulder - Right Wound Culture - Preliminary Presumptive MRSA 01/07/22 12:50 Gram Stain - Preliminary Shoulder - Right Wound Culture - Preliminary Presumptive MRSA 01/07/22 12:50 Gram Stain - Preliminary Arm - Right Wound Culture - Preliminary Presumptive MRSA 01/07/22 12:50 Gram Stain - Preliminary Arm - Right Tissue Culture - Preliminary Presumptive MRSA 01/05/22 13:45 Blood Culture Gram Stain - Final Blood Blood Culture - Final Methicillin resist S. aureus 01/05/22 14:01 Blood Culture Gram Stain - Final Blood Blood Culture - Final Methicillin resist S. aureus
[2022-01-09 11:01] LABS: Glucose,Whole Blood 103 mg/dL (75-99)
[2022-01-09] MEDS: BACLOFEN 10 MG TAB PO PRN ×2 (11:48→23:54)
[2022-01-09] MEDS: SODIUM CHLORIDE 0.9% 1,000 ML IV SCH (11:49)
[2022-01-09] MEDS: hydrALAZINE HCL 25 MG TAB PO PRN (12:01)
[2022-01-09] MEDS ORDERED: IV FLUID CONTINUATION 1,000 ML IV ONE (13:14)
[2022-01-09] MEDS ORDERED: DEXAMETHASONE SOD PHOSPHATE 4 MG/ML 1 ML VIAL IV ONE (13:22)
[2022-01-09] MEDS ORDERED: SCOPOLAMINE 1 MG/72 HR PATCH TRANSDERM ONE (13:22)
[2022-01-09] MEDS ORDERED: ONDANSETRON 4 MG/2 ML VIAL IVP ONE (13:22)
[2022-01-09] MEDS ORDERED: MIDAZOLAM 2 MG/2 ML VIAL IV ONE (13:35)
[2022-01-09] MEDS ORDERED: PROPOFOL 10 MG/ML 20 ML VIAL IV ONE (14:15)
[2022-01-09] MEDS ORDERED: ROPIVACAINE 5 MG/ML 30 ML VIAL ONE (14:15)
[2022-01-09] MEDS ORDERED: fentaNYL (PF) 50 MCG/ML 2 ML AMP ONE (14:15)
[2022-01-09] MEDS ORDERED: SUCCINYLCHOLINE CHLORIDE 100 MG/5 ML SYR IV ONE (14:15)
[2022-01-09] MEDS ORDERED: LIDOCAINE 1% INJ 10MG/ML (20 ML MDV) ONE (14:15)
[2022-01-09] MEDS ORDERED: ceFAZolin 3,000 MG in SODIUM CHLORIDE 0.9% IRRIGATIO 3,000 ML IRRIGATION ONE (14:48)
[2022-01-09] MEDS ORDERED: VANCOMYCIN TROUGH DUE 1 EACH MISC MISCELLANE ONE (15:00)
--- NOTE | 2022-01-09 15:12 | P.OP ---
Date of Procedure: 01/09/22 Procedure(s) Performed: PREOPERATIVE DIAGNOSES: 1. Right shoulder acromioclavicular joint sepsis, status post initial I&D 2 days ago POSTOPERATIVE DIAGNOSES: 1. Right shoulder acromioclavicular joint sepsis, status post initial I&D 2 days ago PROCEDURES PERFORMED: 1. Right shoulder acromioclavicular joint irrigation and non-excisional debridement (irrigation) 2. Gentle manipulation of the shoulder under anesthesia 3. Packing of wound with iodoform gauze 4. Glenohumeral joint aspiration with sending of fluid for culture, cell count, and differential 5. Removal of drain from subacromial space ANESTHESIA: Gen. MANAGER OF DIGITAL: None COMPLICATIONS: None ESTIMATED BLOOD LOSS: Less than 5 mL. DISPOSITION: To post-anesthesia care unit INDICATIONS: Gabriel is a 56-year-old female with a history of acromioclavicular joint infection which was debrided 2 days ago. No evidence of infection was found within the subacromial space. She presents to the operating room for repeat irrigation, dressing change, and removal of the subacromial drain. Consent has been obtained after discussion of the risks of surgery as being inclusive of, but not limited to: Bleeding, further infection, scarring, discomfort, blood vessel and/or nerve damage, compartment syndrome, failure to relieve symptoms, persistence or recurrence and/or worsening of symptoms or problems, stiffness, need for further surgery, blood clot, pulmonary embolism, , anesthesia risks, and other risks. PROCEDURE: After appropriate consent was obtained, the patient was taken to the operating room placed in the supine position. Anesthesia was initiated, and after confirmation of adequate anesthesia, the patient was carefully positioned in the supine position. Care was taken to make sure that all pressure points were adequately padded. The previous packing was removed. The drain was carefully removed from the subacromial space. Prepping and draping were completed in the usual aseptic fashion using Hibiclens prep. Timeout was called, confirming patient identity, side, and procedure. Gentle manipulation and testing of the shoulder for range of motion under anesthesia was performed. The shoulder was stable, and achieve approximately 175 of forward elevation, 175 of abduction, and external rotation with the arm in abduction to about 75 internal rotation same position to about 65. No further manipulation or stretching was performed. Initial pulsatile lavage performed with 1 L saline within the superior aspect of the wound which was left open. Initial inspection of the wound showed healthy well vascularized tissue without any evidence of necrosis or residual abscess. There is no need for any excisional debridement. The vertical mattress sutures inferiorly on the incision were left alone. The acromioclavicular joint itself was then interrogated using a small hemostat, removing any residual material present within the joint carefully. Repeat irrigation was then performed using another liter of saline. Wound soaked using dilute Hibiclens solution was performed around the soft tissues and the soap was allowed to set for 1 minute. It was then thoroughly irrigated with the last liter of pulsatile some saline. Subsequently, the glenohumeral joint was aspirated from an anterior position well away from the adjacent deltoid split carefully using an 18-gauge needle which yielded a small amount of joint fluid and blood. This joint fluid was clear, no evidence of pus. The sample was sent for analysis with culture, cell count, and differential. Subsequently, hemostasis was obtained using electrocautery but there was no significant bleeding present. Wound was lightly packed with moistened half-inch iodoform gauze and sterile dressing was then applied. Patient tolerated the procedure well and taken to recovery room in stable condition. Sponge counts were correct.
--- NOTE | 2022-01-09 15:34 | P.PN ---
Subjective Progress Note Date: 01/09/22 Principal diagnosis: MRSA bacteremia and right shoulder septic arthritis Patient is a 56 year female presenting to the hospital with intractable pain to the right shoulder area in this patient who did have a MRSA bacteremia concerning for right shoulder septic arthritis. Patient is status post washout of the right shoulder on 01/08/2022 with a repeat procedure 2021 On today's evaluation that is 01/09/2022, the patient continues to be afebrile, the patient has been complaining of pain to the right shoulder this morning, patient denies having any chest pain or shortness of cough no nausea no vomiting no abdominal pain no diarrhea Objective - Vital Signs Vital signs: Vital Signs Temp 98.2 F 01/09/22 15:15 Pulse 87 01/09/22 15:30 Resp 18 01/09/22 15:30 BP 143/70 01/09/22 15:30 Pulse Ox 97 01/09/22 15:30 Intake & Output 01/08/22 01/09/22 01/09/22 18:59 06:59 18:59 Intake Total 1080 601 Output Total 1750 905 Balance -670 -304 Weight 77.111 kg Intake: IV 601 Oral 1080 Output: Gastric Drainage 200 Urine 1750 500 Emesis 200 Estimated Blood Loss 5 Other: Voiding Method Toilet Toilet # Voids 4 - Exam GENERAL DESCRIPTION: Middle-age female lying in bed in no distress RESPIRATORY SYSTEM: Unlabored breathing , decreased breath sounds at bases HEART: S1 S2 regular rate and rhythm , ABDOMEN: Soft , no tenderness EXTREMITIES: Right shoulder with some swelling no redness or drainage - Labs CBC & Chem 7: 01/06/22 05:16 01/09/22 05:29 Labs: Abnormal Lab Results - Last 24 Hours (Table) 01/08/22 01/09/22 Range/Units 16:16 11:00 POC Glucose (mg/dL) 107 H 103 H (75-99) mg/dL Microbiology - Last 24 Hours (Table) 01/07/22 12:50 Anaerobic Culture - Preliminary Shoulder - Right 01/07/22 12:50 Anaerobic Culture - Preliminary Arm - Right 01/07/22 12:50 Anaerobic Culture - Preliminary Shoulder - Right 01/07/22 12:50 Anaerobic Culture - Preliminary Shoulder - Right 01/07/22 12:50 Anaerobic Culture - Preliminary Arm - Right 01/06/22 11:24 Blood Culture Gram Stain - Final Blood Blood Culture - Final Methicillin resist S. aureus 01/07/22 17:00 Nasal Culture - Final Nasal Swab Staphylococcus aureus 01/07/22 12:50 Gram Stain - Final Shoulder - Right Wound Culture - Final Methicillin resist S. aureus 01/07/22 12:50 Gram Stain - Final Arm - Right Wound Culture - Final Methicillin resist S. aureus 01/07/22 12:50 Gram Stain - Final Shoulder - Right Wound Culture - Final Methicillin resist S. aureus 01/08/22 05:22 Blood Culture Gram Stain - Preliminary Blood 01/07/22 12:50 Gram Stain - Final Shoulder - Right Wound Culture - Final Methicillin resist S. aureus 01/07/22 12:50 Gram Stain - Final Arm - Right Tissue Culture - Final Methicillin resist S. aureus 01/08/22 05:22 Blood Culture - Final Blood Assessment and Plan (1) Joint infection Current Visit: Yes Status: Acute Code(s): M00.9 - PYOGENIC ARTHRITIS, UNSP ECIFIED SNOMED Code(s): 161851819 Plan: 1patient presented to hospital with acute pain to the right shoulder area with no history of any trauma in this patient who did have abdominal MRI and now with evidence of gram-positive bacteremia high clinical suspicious for right shoulder septic arthritis. 2blood cultures from 01/08/2022 are still positive and will be repeated daily to document clearance of bacteremia 3 patient is status post washout of the right shoulder per orthopedics and deep cultures on 01/08/2022 with a repeat washout on 01/09/2022 4 patient to continue with Vancomycin pharmacy to dose target trough of 15 dose has been adjusted by pharmacy as initial trough was on the low side rifampin will be added for synergistic activity, Family the bedside questions were answered Time with Patient: Less than 30
[2022-01-09 17:03] LABS: Glucose,Whole Blood 129 mg/dL (75-99)
[2022-01-09] MEDS: ACETAMINOPHEN TAB 325 MG TAB PO PRN (18:18)
[2022-01-09 23:11] LABS: Glucose,Whole Blood 109 mg/dL (75-99)
[2022-01-09] MEDS: rifAMPin 300 MG CAP PO SCH (23:13)
[2022-01-09] MEDS: TEMAZEPAM 15 MG CAP PO PRN (23:54)
[2022-01-10] MEDS: VANCOMYCIN 1,500 MG in SODIUM CHLORIDE 0.9% 250 ML IVPB SCH ×3 (00:37→16:15)
[2022-01-10] MEDS: oxyCODONE-APAP 5-325MG 1 EACH TAB PO PRN ×5 (01:39→21:00)
[2022-01-10 07:21] LABS: Glucose,Whole Blood 103 mg/dL (75-99)
[2022-01-10] MEDS: INSULIN ASPART (NovoLOG) 100 UNIT/ML VIAL SQ SCH ×4 (07:55→22:01)
[2022-01-10] MEDS: hydrALAZINE HCL 25 MG TAB PO PRN ×2 (08:06→21:00)
[2022-01-10] MEDS: rifAMPin 300 MG CAP PO SCH ×2 (08:06→21:00)
[2022-01-10] MEDS: GABAPENTIN 300 MG CAP PO SCH ×2 (08:06→21:00)
[2022-01-10] MEDS: PANTOPRAZOLE 40 MG TABLET PO SCH (08:06)
[2022-01-10] MEDS: ENOXAPARIN 40 MG/0.4 ML SYRINGE SQ SCH (08:06)
[2022-01-10] MEDS: LOSARTAN 25 MG TAB PO SCH (08:06)
--- NOTE | 2022-01-10 10:33 | P.PN ---
Subjective Progress Note Date: 01/10/22 This is a 56-year-old female who is status post irrigation and debridement of the right shoulder. Patient is seen and evaluated at bedside today.Patient states the right shoulder is sore, but her pain is tolerable. Patient denies any new complaints today. Objective - Vital Signs Vital signs: Vital Signs Temp 98.1 F 01/10/22 07:36 Pulse 79 01/10/22 07:36 Resp 18 01/10/22 07:36 BP 182/102 01/10/22 07:36 Pulse Ox 96 01/10/22 07:36 Intake & Output 01/09/22 01/10/22 01/10/22 18:59 06:59 18:59 Intake Total 1 Output Total 2005 3799 Balance -165 -3800 Weight 77.111 kg Intake: IV 1601 Sodium Chloride 0.9% 1, 200 000 ml @ 20 mls/hr IV . Q24H [facility] Rx#:[id number] Vancomycin 1,750 mg In 500 Sodium Chloride 0.9% 500 ml 500 ml @ 167 mls/hr IVPB Q12H [facility] Rx#: [id number] Oral 240 Output: Gastric Drainage 200 Urine 1601 3600 Emesis 200 200 Estimated Blood Loss 5 Other: Voiding Method Toilet Toilet # Voids 3 3 - Exam Vital signs are stable. Patient is in no acute distress and is alert and oriented 3. Calf is soft and nontender to palpation. Dressing intact with mild drainage serosanguineous present. Patient has full motion of the right wrist and hand without pain or difficulty. Sensation intact. Neurovascular status and circulatory status are intact. - Labs CBC & Chem 7: 01/06/22 05:16 01/09/22 05:29 Labs: Abnormal Lab Results - Last 24 Hours (Table) 01/09/22 01/09/22 01/09/22 Range/Units 11:00 17:01 23:09 POC Glucose (mg/dL) 103 H 129 H 109 H (75-99) mg/dL 01/10/22 Range/Units 07:20 POC Glucose (mg/dL) 103 H (75-99) mg/dL Microbiology - Last 24 Hours (Table) 01/09/22 14:59 Gram Stain - Preliminary Shoulder - Right Wound Culture - Preliminary 01/09/22 05:30 Blood Culture - Preliminary Blood No Growth after 24 hours 01/09/22 14:59 Anaerobic Culture - Preliminary Shoulder - Right 01/09/22 14:59 Anaerobic Culture - Preliminary Shoulder - Right 01/09/22 14:59 Tissue Culture - Preliminary Shoulder - Right 01/09/22 14:59 Wound Culture - Preliminary Shoulder - Right 01/09/22 14:59 Anaerobic Culture - Preliminary Shoulder - Right 01/07/22 12:50 Anaerobic Culture - Preliminary Shoulder - Right 01/07/22 12:50 Anaerobic Culture - Preliminary Arm - Right 01/07/22 12:50 Anaerobic Culture - Preliminary Shoulder - Right 01/07/22 12:50 Anaerobic Culture - Preliminary Shoulder - Right 01/07/22 12:50 Anaerobic Culture - Preliminary Arm - Right 01/06/22 11:24 Blood Culture Gram Stain - Final Blood Blood Culture - Final Methicillin resist S. aureus 01/07/22 17:00 Nasal Culture - Final Nasal Swab Staphylococcus aureus 01/07/22 12:50 Gram Stain - Final Shoulder - Right Wound Culture - Final Methicillin resist S. aureus 01/07/22 12:50 Gram Stain - Final Arm - Right Wound Culture - Final Methicillin resist S. aureus 01/07/22 12:50 Gram Stain - Final Shoulder - Right Wound Culture - Final Methicillin resist S. aureus 01/08/22 05:22 Blood Culture Gram Stain - Preliminary Blood 01/07/22 12:50 Gram Stain - Final Shoulder - Right Wound Culture - Final Methicillin resist S. aureus 01/07/22 12:50 Gram Stain - Final Arm - Right Tissue Culture - Final Methicillin resist S. aureus Assessment and Plan (1) Joint infection Current Visit: Yes Status: Acute Code(s): M00.9 - PYOGENIC ARTHRITIS, UNSPECIFIED SNOMED Code(s): 402757433 (2) Positive blood culture Current Visit: Yes Status: Acute Code(s): R78.81 - BACTEREMIA SNOMED Code(s): 099001039 (3) Acromioclavicular joint arthritis Current Visit: No Status: Acute Code(s): M19.019 - PRIMARY OSTEOARTHRITIS, UNSPECIFIED SHOULDER SNOMED Code(s): 571427824 (4) Right shoulder pain Current Visit: No Status: Acute Code(s): M25.511 - PAIN IN RIGHT SHOULDER SNOMED Code(s): 05927220 Plan: 1. Continue routine postoperative care and pain control. 2. Wound cultures are pending. Continue IV antibiotics per infectious disease. Further local wound care at the discretion of Dr. Lott.
[2022-01-10] MEDS: BACLOFEN 10 MG TAB PO PRN (10:34)
[2022-01-10] MEDS: KETOROLAC 15 MG/ML 1 ML VIAL IVP SCH ×2 (10:35→16:15)
--- NOTE | 2022-01-10 11:04 | P.PN ---
Subjective Progress Note Date: 01/10/22 HISTORY OF PRESENT ILLNESS 56-year-old female one of our office patient with past medical history of GERD and mildly elevated blood pressure apparently has been doing well the blood to have significant neck pain and shoulder pain ended up going for deep tissue massage this past week on Wednesday or developed to have severe right shoulder and arm pain could not sleep the night ended up seen Dr. Whelan [facility]2022 were patient exam was consistent with severe skeletal muscular pain she was prescribed steroid along with muscle relaxer and medication for pain. Patient presented to the emergency department yesterday with severe intractable pain, CT at the ER shows no evidence of joint effusion at the time but had some fluid in the acromioclavicular joint with significant soft tissue swelling of the time. She ended up seen Dr. Brar in the emergency room joint aspiration was done and sent for culture patient was to continue medication. An MRI was schedule for patient as an outpatient but surprisingly the culture came back positive for gram-positivei patient [facility] was having no fever or chills at the time decided to have patient hospitalized due to MRI urgent and start patient on IV antibiotics right away. 01/06: Patient continues to have significant pain in her right shoulder also complains of pain in her neck and jaw, her has related that she had been scratching the base of her neck and base of the skull quite a bit over the past couple weeks. 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 Patient has been seen by orthopedics and scheduled for I&D of the right shoulder before meals joint for tomorrow. Patient has been afebrile, heart rate 83, blood pressure 162/79, pulse ox 96% on room air. Repeat blood work reveals normal CBC. Sodium 135, chloride 97, creatinine 0.65. AST 61 and ALT 140. Capillary blood glucose 154. Blood cultures are positive for Staphylococcus aureus. Repeat sed rate and CRP ordered. Also hemoglobin A1c ordered. Patient has no history of diabetes. MRI of the right shoulder revealed shoulder joint effusion. Subdeltoid effusion. Fluid accumulation in the subcutaneous tissues as well as around the supra splenitis and infraspinatus muscle consistent with infectious or inflammatory process. No discrete abscess. No evidence of full-thickness rotator cuff tear. Moderate fluid accumulation seen in the before meals joint that could relate to septic arthritis. Abdominal ultrasound revealed nonspecific pattern to the liver can be seen with hepatic steatosis, diffuse hepatocellular disease including hepatitis. Correlate with renal function studies to assess for chronic medical renal disease. No hydronephrosis or nephrolithiasis. 01/07: Patient is complaining of significant headache to the frontal area as well as the occipital region. An MRI of the brain will be ordered. Discussed results of ultrasound finding fatty liver with recommendations for weight loss. Sinus CAT scan was negative. She is scheduled today for I&D of the right shoulder. Patient is continued on vancomycin. Patient remains afebrile. Hepatitis panel was negative. Lipase 69. MRI of the brain reveals mild nonspecific white matter changes may be on the basis of altered vascular mechanics related to proximal migraine headaches. Non-visualization of portions of the basilar artery could reflect significant stenosis and/or areas of occlusion. Advised CTA or MRA of the brain and stebbins of López follow-up to further evaluate. 01/08: Yesterday, patient underwent right shoulder before meals joint incision and drainage irrigation and sharp excisional debridement of ligament tissue and fibrous tissue within the before meals joint. Open irrigation of subacromial with Hemovac drain placement. Deep cultures from subacromial space and before m eals joint, tissue biopsy before meals joint were obtained. Patient states that her pain in her right shoulder is significantly improved but she did have a block done yesterday. She states the pain is now a dull ache. She states that she had an episode last evening with chest pain and cold sweats and EKG showed no acute findings. Blood sugar was also up to 219 last evening. A1c came back at 6.1. Repeat blood cultures to be obtained today but previous were positive for MRSA. Wound culture presumptive MRSA. Patient has been continued on vancomycin. She is scheduled for a second debridement of the right shoulder tomorrow. 01/09: Patient states that pain is returned and was severe similar to the pain that brought her into the hospital and started at 5 PM last night. She was able to sleep last night but woke up at 4 with severe pain. Patient is scheduled for second I&D today with Dr. Lilly.she denies having any fever or chills. She has been afebrile, heart rate 80s, blood pressure 164/78 and losartan will be adjusted and increased to 75 mg twice daily. Pulse ox is 93% on room air. 01/10: patient is found sitting up in a chair. Shoulder and was mobilized. Patient did have a I&D with washout yesterday. patient had an episode of shortness of breath and coughing last night. She does have some edema to the right upper extremity. It isn't mobile. We will order a chest x-ray, right upper extremity arterial Doppler due to the shortness of breath. Patient also has yeast noted to her mucous membrane. Patient states that the pain is manageable. echocardiogram to rule out vegetation. patient remains afebrile, heart rate 79, respirations 18, blood pressure elevated at 182/102. creatinine 0.58. REVIEW OF SYSTEMS Constitutional: No fever, no chills, no night sweats. No weight change. No weakness, fatigue or lethargy. No daytime sleepiness. EENT: No headache. No blurred vision or double vision, no loss of vision. No loss of Hearing, no ringing in the ears, no dizziness. No nasal drainage or congestion. No epistaxis. No sore throat. Lungs: No shortness of breath, cough, no sputum production. No wheezing. Cardiovascular: No chest pain, no lower extremity edema. No palpitations. No paroxysmal nocturnal dyspnea. No orthopnea. No lightheadedness or dizziness. No syncopal episodes. Abdominal: No abdominal pain. No nausea, vomiting. No diarrhea. No constipation. No bloody or tarry stools.. No loss of appetite. Genitourinary: No dysuria, increased frequency, urgency. No urinary retention. Musculoskeletal: Right shoulder restriction to motion with neck pain as well., no gait dysfunction, no frequent falls. No back pain. Reports severe right shoulder pain. Integumentary: No wounds, no lesions. No rash or pruritus. No unusual bruising. No change in hair or nails. Neurologic: No aphasia. No facial droop. No change in mentation. No head injury. No headache. No paralysis. No paresthesia. Psychiatric: No depression. No anxiety. No mood swings. Endocrine: Noted abnormal blood sugars. No weight change. No excessive sweating or thirst. No cold intolerance. PHYSICAL EXAMINATION Gen: This is a well-developed 56-year-old female, resting in a recliner, no acute respiratory distress. HEENT: Head is atraumatic, normocephalic. Pupils equal, round. Sclerae is anicteric. NECK: Supple. No JVD. No lymphadenopathy. No thyromegaly. LUNGS: Clear to auscultation. No wheezes or rhonchi. No intercostal retractions. HEART: Regular rate and rhythm. No murmur. ABDOMEN: Soft. Bowel sounds are present. No masses. No tenderness. EXTREMITIES: No pedal edema. No calf tenderness. Right shoulder has large dressing in place. NEUROLOGICAL: Patient is awake, alert and oriented x3. Cranial nerves 2 through 12 are grossly intact. ASSESSMENT AND PLAN 1. Acute infected right AC joint with MRSA bacteremia status post I&D on 01/07, repeat scheduled for 01/09. Patient is currently on vancomycin, consult with infectious disease appreciated, Percocet for pain. Right upper extremity arterial Doppler, chest x-ray.echocardiogram to rule out vegetation. 2 intractable pain and discomfort in the right shoulder area: Probably could be explained by the infectious site at this point we'll continue pain management. Continue Percocet. Dilaudid discontinued. 3 abnormal liver function test secondary to fatty liver. Patient advised for weight loss. 4 hyperglycemiaContinueek with sliding scale coverage and be done patient has not been diabetic. A16.1 5 hypertension. Patient started on losartan will be increased to 75 mg daily and continueon hydralazine 25 mg every 6 hour for systolic blood pressure above 140. 6 frontal and occipital headache. MRI of the brain was negative for acute findings. 7. Shortness of breath. right arterial upper extremity Doppler, chest x-ray 8.candidiasis of the mouth. Clotrimazole 9 GERD/GI prophylaxis: Patient will be on Pepcid. 10. DVT prophylaxis. SCDs and PAULINE hose. CODE STATUS: Full code. DISCHARGE PLAN Home Impression and plan of care have been directed as dictated by the signing physician. Leeanna Nunez nurse practitioner acting as scribe for signing physician. Objective - Vital Signs Vital signs: Vital Signs Temp 98.1 F 01/10/22 07:36 Pulse 79 01/10/22 07:36 Resp 18 01/10/22 07:36 BP 182/102 01/10/22 07:36 Pulse Ox 96 01/10/22 07:36 Intake & Output 01/09/22 01/10/22 01/10/22 18:59 06:59 18:59 Intake Total 1841 Output Total 2005 3800 800 Balance -165 -3800 -800 Weight 77.111 kg Intake: IV 1601 Sodium Chloride 0.9% 1, 200 000 ml @ 20 mls/hr IV . Q24H [facility] Rx#:[id number] Vancomycin 1,750 mg In 500 Sodium Chloride 0.9% 500 ml 500 ml @ 167 mls/hr IVPB Q12H [facility] Rx#: [id number] Oral 240 Output: Gastric Drainage 200 Urine 1601 3600 800 Emesis 200 200 Estimated Blood Loss 5 Other: Voiding Method Toilet Toilet # Voids 3 3 - Labs CBC & Chem 7: 01/06/22 05:16 01/09/22 05:29 Labs: Abnormal Lab Results - Last 24 Hours (Table) 01/09/22 01/09/22 01/09/22 Range/Units 11:00 17:01 23:09 POC Glucose (mg/dL) 103 H 129 H 109 H (75-99) mg/dL 01/10/22 Range/Units 07:20 POC Glucose (mg/dL) 103 H (75-99) mg/dL Microbiology - Last 24 Hours (Table) 01/09/22 14:59 Gram Stain - Preliminary Shoulder - Right Wound Culture - Preliminary 01/09/22 05:30 Blood Culture - Preliminary Blood No Growth after 24 hours 01/09/22 14:59 Anaerobic Culture - Preliminary Shoulder - Right 01/09/22 14:59 Anaerobic Culture - Preliminary Shoulder - Right 01/09/22 14:59 Tissue Culture - Preliminary Shoulder - Right 01/09/22 14:59 Wound Culture - Preliminary Shoulder - Right 01/09/22 14:59 Anaerobic Culture - Preliminary Shoulder - Right 01/07/22 12:50 Anaerobic Culture - Preliminary Shoulder - Right 01/07/22 12:50 Anaerobic Culture - Preliminary Arm - Right 01/07/22 12:50 Anaerobic Culture - Preliminary Shoulder - Right 01/07/22 12:50 Anaerobic Culture - Preliminary Shoulder - Right 01/07/22 12:50 Anaerobic Culture - Preliminary Arm - Right 01/06/22 11:24 Blood Culture Gram Stain - Final Blood Blood Culture - Final Methicillin resist S. aureus 01/07/22 17:00 Nasal Culture - Final Nasal Swab Staphylococcus aureus 01/07/22 12:50 Gram Stain - Final Shoulder - Right Wound Culture - Final Methicillin resist S. aureus 01/07/22 12:50 Gram Stain - Final Arm - Right Wound Culture - Final Methicillin resist S. aureus 01/07/22 12:50 Gram Stain - Final Shoulder - Right Wound Culture - Final Methicillin resist S. aureus 01/08/22 05:22 Blood Culture Gram Stain - Preliminary Blood 01/07/22 12:50 Gram Stain - Final Shoulder - Right Wound Culture - Final Methicillin resist S. aureus 01/07/22 12:50 Gram Stain - Final Arm - Right Tissue Culture - Final Methicillin resist S. aureus
--- NOTE | 2022-01-10 11:06 | XR ---
EXAMINATION TYPE: XR chest 1V portable DATE OF EXAM: 01/10/2022 10:38 AM COMPARISON: 12/12/2013 TECHNIQUE: XR chest 1V portable Frontal view of the chest. CLINICAL INDICATION:Female, 56 years old with history of SOB; FINDINGS: Lungs/Pleura: There is no evidence of pleural effusion, focal consolidation, or pneumothorax. Pulmonary vascularity: Unremarkable. Heart/mediastinum: Cardiomediastinal silhouette is enlarged. Musculoskeletal: No acute osseous pathology. IMPRESSION: No acute cardiopulmonary disease/process.
[2022-01-10 11:40] LABS: Glucose,Whole Blood 121 mg/dL (75-99)
[2022-01-10] MEDS: CLOTRIMAZOLE TROCHE 10 MG TROCHE MUCOUS MEM SCH ×3 (12:26→21:00)
--- NOTE | 2022-01-10 13:39 | ECHOF ---
Referral Reason:r/o vegatation MEASUREMENTS -------- HEIGHT: 154.9 cm WEIGHT: 76.7 kg BP: 182/102 RVIDd: 2.5 cm (< 3.3) IVSd: 1.0 cm (0.6 - 1.1) LVIDd: 4.1 cm (3.9 - 5.3) LVPWd: 0.9 cm (0.6 - 1.1) IVSs: 1.7 cm LVIDs: 2.6 cm LVPWs: 1.6 cm LA Diam: 3.5 cm (2.7 - 3.8) LAESV Index (A-L): 19.41 ml/m Ao Diam: 3.0 cm (2.0 - 3.7) AV Cusp: 1.9 cm (1.5 - 2.6) MV EXCURSION: 19.436 mm (> 18.000) MV EF SLOPE: 71 mm/s (70 - 150) EPSS: 0.2 cm MV E Moose: 0.71 m/s MV DecT: 272 ms MV A Moose: 0.74 m/s MV E/A Ratio: 0.96 FINDINGS -------- Sinus rhythm. Suboptimal image quality - poor subcostal views. The left ventricular size is normal. Left ventricular wall thickness is normal. Overall left vent ricular systolic function is normal with, an EF between 60 - 65 %. The right ventricle is normal in size. Normal LA size by volume 22+/-6 ml/m2. The right atrium is normal in size. Interatrial and interventricular septum intact. The aortic valve is trileaflet, and appears structurally normal. No aortic stenosis or regurgitation. The mitral valve is normal. The tricuspid valve appears structurally normal. Unable to estimate RVSP due to inadequate TR jet s pectral doppler profile. The pulmonic valve is normal. The aortic root size is normal. IVC Not well visulized. There is no pericardial effusion. CONCLUSIONS -------- 1. The left ventricular size is normal. 2. Left ventricular wall thickness is normal. 3. Overall left ventricular systolic function is normal with, an EF between 60 - 65 %. 4. There is no pericardial effusion. CRYPTOGRAPHIC CLERK: Cha Ferris [facility]
--- NOTE | 2022-01-10 14:15 | US ---
EXAMINATION TYPE: US venous doppler duplex UE RT DATE OF EXAM: 01/10/2022 COMPARISON: NONE CLINICAL HISTORY: edema. Edema. Recent procedure on joint within shoulder. No hx of DVT per patient. SIDE PERFORMED: Right arm Right Arm: There appear to be internal echoes within the basilic vein at the elbow. This vessel does not appear to compress. Color defect seen. Color flow shown in all remaining veins imaged. IMPRESSION: Superficial thrombophlebitis of the right basilic vein. No evidence of deep vein thrombosis.
[2022-01-10] MEDS: SODIUM CHLORIDE 0.9% 1,000 ML IV SCH (15:24)
--- NOTE | 2022-01-10 16:06 | P.PN ---
Subjective Progress Note Date: 01/10/22 Principal diagnosis: MRSA bacteremia and right shoulder septic arthritis Patient is a 56 year female presenting to the hospital with intractable pain to the right shoulder area in this patient who did have a MRSA bacteremia concerning for right shoulder septic arthritis. Patient is status post washout of the right shoulder on 01/08/2022 with a repeat procedure 2021 On today's evaluation that is 01/10/2022, the patient remains to be afebrile, the patient pain to the right shoulder is currently controlled, patient denies having any chest pain or shortness of cough no nausea no vomiting no abdominal pain no diarrhea Objective - Vital Signs Vital signs: Vital Signs Temp 98.1 F 01/10/22 07:36 Pulse 79 01/10/22 07:36 Resp 18 01/10/22 07:36 BP 182/102 01/10/22 07:36 Pulse Ox 96 01/10/22 07:36 Intake & Output 01/09/22 01/10/22 01/10/22 18:59 06:59 18:59 Intake Total 1841 Output Total 2005 3800 800 Balance -165 -3800 -800 Weight 77.111 kg Intake: IV 1601 Sodium Chloride 0.9% 1, 200 000 ml @ 20 mls/hr IV . Q24H [facility] Rx#:[id number] Vancomycin 1,750 mg In 500 Sodium Chloride 0.9% 500 ml 500 ml @ 167 mls/hr IVPB Q12H [facility] Rx#: [id number] Oral 240 Output: Gastric Drainage 200 Urine 1601 3600 800 Emesis 200 200 Estimated Blood Loss 5 Other: Voiding Method Toilet Toilet # Voids 3 3 - Exam GENERAL DESCRIPTION: Middle-age female lying in bed in no distress RESPIRATORY SYSTEM: Unlabored breathing , decreased breath sounds at bases HEART: S1 S2 regular rate and rhythm , ABDOMEN: Soft , no tenderness EXTREMITIES: Right shoulder did have a deeper wound wound base is clean some surrounding redness no drainage - Labs CBC & Chem 7: 01/06/22 05:16 01/09/22 05:29 Labs: Abnormal Lab Results - Last 24 Hours (Table) 01/09/22 01/09/22 01/10/22 Range/Units 17:01 23:09 07:20 POC Glucose (mg/dL) 129 H 109 H 103 H (75-99) mg/dL 01/10/22 Range/Units 11:36 POC Glucose (mg/dL) 121 H (75-99) mg/dL Microbiology - Last 24 Hours (Table) 01/09/22 14:59 Gram Stain - Preliminary Shoulder - Right Wound Culture - Preliminary 01/09/22 05:30 Blood Culture - Preliminary Blood No Growth after 24 hours 01/09/22 14:59 Anaerobic Culture - Preliminary Shoulder - Right 01/09/22 14:59 Anaerobic Culture - Preliminary Shoulder - Right 01/09/22 14:59 Tissue Culture - Preliminary Shoulder - Right 01/09/22 14:59 Wound Culture - Preliminary Shoulder - Right 01/09/22 14:59 Anaerobic Culture - Preliminary Shoulder - Right 01/07/22 12:50 Anaerobic Culture - Preliminary Shoulder - Right 01/07/22 12:50 Anaerobic Culture - Preliminary Arm - Right 01/07/22 12:50 Anaerobic Culture - Preliminary Shoulder - Right 01/07/22 12:50 Anaerobic Culture - Preliminary Shoulder - Right 01/07/22 12:50 Anaerobic Culture - Preliminary Arm - Right 01/06/22 11:24 Blood Culture Gram Stain - Final Blood Blood Culture - Final Methicillin resist S. aureus 01/07/22 17:00 Nasal Culture - Final Nasal Swab Staphylococcus aureus 01/07/22 12:50 Gram Stain - Final Shoulder - Right Wound Culture - Final Methicillin resist S. aureus 01/07/22 12:50 Gram Stain - Final Arm - Right Wound Culture - Final Methicillin resist S. aureus 01/07/22 12:50 Gram Stain - Final Shoulder - Right Wound Culture - Final Methicillin resist S. aureus 01/08/22 05:22 Blood Culture Gram Stain - Preliminary Blood 01/07/22 12:50 Gram Stain - Final Shoulder - Right Wound Culture - Final Methicillin resist S. aureus 01/07/22 12:50 Gram Stain - Final Arm - Right Tissue Culture - Final Methicillin resist S. aureus Assessment and Plan (1) Joint infection Current Visit: Yes Status: Acute Code(s): M00.9 - PYOGENIC ARTHRITIS, UNSPECIFIED SNOMED Code(s): 421018599 Plan: 1patient presented to hospital with acute pain to the right shoulder area with no history of any trauma in this patient who did have abdominal MRI and now with evidence of gram-positive bacteremia high clinical suspicious for right shoulder septic arthritis. 2blood cultures from 01/09/2022 are so far negative including remains to be negative at 72 hours she will be able to get a PICC line 3 patient is status post washout of the right shoulder per orthopedics and deep cultures on 01/08/2022 with a repeat washout on 01/09/2022 4 patient is currently being treated with Vancomycin pharmacy to dose target trough of 15 dose along with rifampin will be added for synergistic activity, 5local wound care with Aquacel silver packing of the wound and changed every 48 hour Time with Patient: Less than 30
[2022-01-10 16:44] LABS: Glucose,Whole Blood 176 mg/dL (75-99)
[2022-01-10] MEDS: SYMBICORT 160-4.5 MCG INHALER INHALATION SCH (20:21)
[2022-01-10] MEDS: TEMAZEPAM 15 MG CAP PO PRN (21:01)
[2022-01-10] MEDS: FLUTICASONE 50MCG/SPRAY NASAL 16GM EA NOSTRIL SCH (21:01)
[2022-01-10 21:38] LABS: Glucose,Whole Blood 164 mg/dL (75-99)
[2022-01-11] MEDS: VANCOMYCIN 1,500 MG in SODIUM CHLORIDE 0.9% 250 ML IVPB SCH ×2 (01:29→09:28)
[2022-01-11] MEDS: CLOTRIMAZOLE TROCHE 10 MG TROCHE MUCOUS MEM SCH ×5 (01:29→22:28)
[2022-01-11] MEDS: KETOROLAC 15 MG/ML 1 ML VIAL IVP SCH ×4 (01:30→17:11)
[2022-01-11] MEDS: hydrALAZINE HCL 25 MG TAB PO PRN ×2 (05:34→11:42)
[2022-01-11] MEDS: BACLOFEN 10 MG TAB PO PRN ×2 (06:19→16:19)
[2022-01-11] MEDS: ONDANSETRON 4 MG/2 ML VIAL IVP PRN (06:22)
[2022-01-11 06:47] LABS: Glucose,Whole Blood 113 mg/dL (75-99)
[2022-01-11] MEDS: oxyCODONE-APAP 5-325MG 1 EACH TAB PO PRN ×4 (06:52→22:29)
[2022-01-11] MEDS: LOSARTAN 25 MG TAB PO SCH (06:53)
[2022-01-11] MEDS: PANTOPRAZOLE 40 MG TABLET PO SCH (06:53)
[2022-01-11] MEDS: ENOXAPARIN 40 MG/0.4 ML SYRINGE SQ SCH (06:53)
[2022-01-11] MEDS: GABAPENTIN 300 MG CAP PO SCH ×2 (06:53→21:19)
[2022-01-11] MEDS ORDERED: VANCOMYCIN TROUGH DUE 1 EACH MISC MISCELLANE ONE (08:00)
[2022-01-11] MEDS: INSULIN ASPART (NovoLOG) 100 UNIT/ML VIAL SQ SCH ×4 (08:05→22:18)
[2022-01-11] MEDS: SYMBICORT 160-4.5 MCG INHALER INHALATION SCH ×2 (08:45→20:48)
[2022-01-11] MEDS ORDERED: LISINOPRIL-HCTZ 10-12.5 MG 1 EACH TAB PO SCH (09:30)
[2022-01-11] MEDS: rifAMPin 300 MG CAP PO SCH ×2 (09:35→22:28)
[2022-01-11 09:39] LABS: ALT 60 U/L (4-34); AST 42 U/L (14-36); African American GFR (CKD) >90 (>60 ml/min/1.73 sqM); Albumin/Globulin Ratio 1.1; Alkaline Phosphatase 85 U/L (38-126); Anion Gap 10 mmol/L; Blood Urea Nitrogen 7 mg/dL (7-17); Calcium 8.4 mg/dL (8.4-10.2); Carbon Dioxide 25 mmol/L (22-30); Chloride 100 mmol/L (98-107); Globulin 2.8 g/dL; Glucose 166 mg/dL (74-99); Non-African American GFR(CKD) >90 (>60 ml/min/1.73 sqM); Potassium 3.9 mmol/L (3.5-5.1); Sodium 135 mmol/L (137-145); Total Bilirubin 0.7 mg/dL (0.2-1.3); Total Protein 5.8 g/dL (6.3-8.2)
--- NOTE | 2022-01-11 09:58 | P.PN ---
Subjective Progress Note Date: 01/11/22 This is a 56-year-old female who is status post irrigation and debridement of the right shoulder. This is postoperative day #2. Patient is seen and evaluated at bedside today. Patient denies any new complaints today. Objective - Vital Signs Vital signs: Vital Signs Temp 98.9 F 01/11/22 08:00 Pulse 80 01/11/22 08:00 Resp 17 01/11/22 08:00 BP 174/75 01/11/22 08:15 Pulse Ox 96 01/11/22 08:00 Intake & Output 01/10/22 01/11/22 01/11/22 18:59 06:59 18:59 Output Total 800 Balance -800 Output: Urine 800 Other: Voiding Method Toilet # Voids 3 - Exam Vital signs are stable. Patient is in no acute distress and is alert and oriented 3. Calf is soft and nontender to palpation. Dressing clean, dry and intact. Patient has full motion of the right elbow, wrist and hand without pain or difficulty. Sensation intact. Neurovascular status and circulatory status are intact. - Labs CBC & Chem 7: 01/06/22 05:16 01/11/22 08:57 Labs: Abnormal Lab Results - Last 24 Hours (Table) 01/10/22 01/10/22 01/10/22 Range/Units 11:36 16:42 21:33 Sodium (137-145) mmol/L Glucose (74-99) mg/dL POC Glucose (mg/dL) 121 H 176 H 164 H (75-99) mg/dL AST (14-36) U/L ALT (4-34) U/L Total Protein (6.3-8.2) g/dL Albumin (3.5-5.0) g/dL Vancomycin Trough ug/mL 01/11/22 01/11/22 01/11/22 Range/Units 06:45 08:57 08:57 Sodium 135 L (137-145) mmol/L Glucose 166 H (74-99) mg/dL POC Glucose (mg/dL) 113 H (75-99) mg/dL AST 42 H (14-36) U/L ALT 60 H (4-34) U/L Total Protein 5.8 L (6.3-8.2) g/dL Albumin 3.0 L (3.5-5.0) g/dL Vancomycin Trough 35.5 H* ug/mL Microbiology - Last 24 Hours (Table) 01/07/22 12:50 Anaerobic Culture - Final Shoulder - Right 01/07/22 12:50 Anaerobic Culture - Final Arm - Right 01/07/22 12:50 Anaerobic Culture - Final Shoulder - Right 01/07/22 12:50 Anaerobic Culture - Final Shoulder - Right 01/07/22 12:50 Anaerobic Culture - Final Arm - Right 01/10/22 06:55 Blood Culture - Preliminary Blood No Growth after 24 hours 01/09/22 05:30 Blood Culture Gram Stain - Preliminary Blood Blood Culture - Preliminary Staphylococcus aureus 01/09/22 14:59 Gram Stain - Preliminary Shoulder - Right Wound Culture - Preliminary Presumptive MRSA 01/09/22 14:59 Gram Stain - Preliminary Shoulder - Right Tissue Culture - Preliminary 01/09/22 14:59 Gram Stain - Preliminary Shoulder - Right Wound Culture - Preliminary Presumptive MRSA 01/08/22 05:22 Blood Culture Gram Stain - Preliminary Blood Blood Culture - Preliminary Presumptive Staph aureus 01/09/22 05:30 Blood Culture - Final Blood Assessment and Plan (1) Joint infection Current Visit: Yes Status: Acute Code(s): M00.9 - PYOGENIC ARTHRITIS, UN SPECIFIED SNOMED Code(s): 386200026 (2) Positive blood culture Current Visit: Yes Status: Acute Code(s): R78.81 - BACTEREMIA SNOMED Code(s): 567585469 (3) Acromioclavicular joint arthritis Current Visit: No Status: Acute Code(s): M19.019 - PRIMARY OSTEOARTHRITIS, UNSPECIFIED SHOULDER SNOMED Code(s): 563908183 (4) Right shoulder pain Current Visit: No Status: Acute Code(s): M25.511 - PAIN IN RIGHT SHOULDER SNOMED Code(s): 13163224 Plan: 1. Continue routine postoperative care and pain control. 2. A Doppler ultrasound of the right upper extremity reveals superficial t hrombophlebitis of the right basilic vein. No evidence of deep vein thrombosis. 3. Cultures are showing presumptive MRSA. Continue IV antibiotics per infectious disease. Further local wound care at the discretion of Dr. Lott.
[2022-01-11] MEDS: ASPIRIN 81 MG PO SCH ×2 (09:59→21:19)
[2022-01-11] MEDS ORDERED: VANCOMYCIN IV PER PHARMACY 1 EACH MISC MISCELLANE PRN (10:12)
--- NOTE | 2022-01-11 10:38 | P.PN ---
Subjective Progress Note Date: 01/11/22 HISTORY OF PRESENT ILLNESS 56-year-old female one of our office patient with past medical history of GERD and mildly elevated blood pressure apparently has been doing well the blood to have significant neck pain and shoulder pain ended up going for deep tissue massage this past week on Wednesday or developed to have severe right shoulder and arm pain could not sleep the night ended up [facility]22 were patient exam was consistent with severe skeletal muscular pain she was prescribed steroid along with muscle relaxer and medication for pain. Patient presented to the emergency department yesterday with severe intractable pain, CT at the ER shows no evidence of joint effusion at the time but had some fluid in the acromioclavicular joint with significant soft tissue swelling of the time. She ended up seen Dr. Brar in the emergency room joint aspiration was done and sent for culture patient was to continue medication. An MRI was schedule for patient as an outpatient but surprisingly the culture came back positive for gram-positivei patient [facility] was having no fever or chills at the time decided to have patient hospitalized due to MRI urgent and start patient on IV antibiotics right away. 01/06: Patient continues to have significant pain in her right shoulder also complains of pain in her neck and jaw, her has related that she had been scratching the base of her neck and base of the skull quite a bit over the past couple weeks. 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 Patient has been seen by orthopedics and scheduled for I&D of the right shoulder before meals joint for tomorrow. Patient has been afebrile, heart rate 83, blood pressure 162/79, pulse ox 96% on room air. Repeat blood work reveals normal CBC. Sodium 135, chloride 97, creatinine 0.65. AST 61 and ALT 140. Capillary blood glucose 154. Blood cultures are positive for Staphylococcus aureus. Repeat sed rate and CRP ordered. Also hemoglobin A1c ordered. Patient has no history of diabetes. MRI of the right shoulder revealed shoulder joint effusion. Subdeltoid effusion. Fluid accumulation in the subcutaneous tissues as well as around the supra splenitis and infraspinatus muscle consistent with infectious or inflammatory process. No discrete abscess. No evidence of full-thickness rotator cuff tear. Moderate fluid accumulation seen in the before meals joint that could relate to septic arthritis. Abdominal ultrasound revealed nonspecific pattern to the liver can be seen with hepatic steatosis, diffuse hepatocellular disease including hepatitis. Correlate with renal function studies to assess for chronic medical renal disease. No hydronephrosis or nephrolithiasis. 01/07: Patient is complaining of significant headache to the frontal area as well as the occipital region. An MRI of the brain will be ordered. Discussed results of ultrasound finding fatty liver with recommendations for weight loss. Sinus CAT scan was negative. She is scheduled today for I&D of the right shoulder. Patient is continued on vancomycin. Patient remains afebrile. Hepatitis panel was negative. Lipase 69. MRI of the brain reveals mild nonspecific white matter changes may be on the basis of altered vascular mechanics related to proximal migraine headaches. Non-visualization of portions of the basilar artery could reflect significant stenosis and/or areas of occlusion. Advised CTA or MRA of the brain and [place] of [place] follow-up to further evaluate. 01/08: Yesterday, patient underwent right shoulder before meals joint incision and drainage irrigation and sharp excisional debridement of ligament tissue and fibrous tissue within the before meals joint. Open irrigation of subacromial with Hemovac drain placement. Deep cultures from subacromial space and before m eals joint, tissue biopsy before meals joint were obtained. Patient states that her pain in her right shoulder is significantly improved but she did have a block done yesterday. She states the pain is now a dull ache. She states that she had an episode last evening with chest pain and cold sweats and EKG showed no acute findings. Blood sugar was also up to 219 last evening. A1c came back at 6.1. Repeat blood cultures to be obtained today but previous were positive for MRSA. Wound culture presumptive MRSA. Patient has been continued on vancomycin. She is scheduled for a second debridement of the right shoulder tomorrow. 01/09: Patient states that pain is returned and was severe similar to the pain that brought her into the hospital and started at 5 PM last night. She was able to sleep last night but woke up at 4 with severe pain. Patient is scheduled for second I&D today with Dr. Lilly.she denies having any fever or chills. She has been afebrile, heart rate 80s, blood pressure 164/78 and losartan will be adjusted and increased to 75 mg twice daily. Pulse ox is 93% on room air. 01/10: patient is found sitting up in a chair. Shoulder and was mobilized. Patient did have a I&D with washout yesterday. patient had an episode of shortness of breath and coughing last night. She does have some edema to the right upper extremity. It isn't mobile. We will order a chest x-ray, right upper extremity arterial Doppler due to the shortness of breath. Patient also has yeast noted to her mucous membrane. Patient states that the pain is manageable. echocardiogram to rule out vegetation. patient remains afebrile, heart rate 79, respirations 18, blood pressure elevated at 182/102. creatinine 0.58. 01/11: Right upper extremity Doppler showed positive superficial phlebitis. Joshua salmon denies any chest pain or shortness of breath with activity. Denies cough. No nausea or vomiting. Patient was started on aspirin 81 mg twice a day. Recommendations for range of motion from or so. Patient continues to have elevated blood pressures greater than 200. Patient was given hydralazine as needed. We will start patient on lisinopril HTZ. Echo cardiogram results noted below. Patient remains afebrile, heart rate 80, blood pressure 184/70, respirations 16, pulse ox 96% on room air. Potassium 3.9, B UN 7 creatinine 0.58 REVIEW OF SYSTEMS Constitutional: No fever, no chills, no night sweats. No weight change. No weakness, fatigue or lethargy. No daytime sleepiness. EENT: No headache. No blurred vision or double vision, no loss of vision. No loss of Hearing, no ringing in the ears, no dizziness. No nasal drainage or congestion. No epistaxis. No sore throat. Lungs: No shortness of breath, cough, no sputum production. No wheezing. Cardiovascular: No chest pain, no lower extremity edema. No palpitations. No paroxysmal nocturnal dyspnea. No orthopnea. No lightheadedness or dizziness. No syncopal episodes. Abdominal: No abdominal pain. No nausea, vomiting. No diarrhea. No constipation. No bloody or tarry stools.. No loss of appetite. Genitourinary: No dysuria, increased frequency, urgency. No urinary retention. Musculoskeletal: Right shoulder restriction to motion with neck pain as well., no gait dysfunction, no frequent falls. No back pain. Reports severe right shoulder pain. Integumentary: No wounds, no lesions. No rash or pruritus. No unusual bruising. No change in hair or nails. Neurologic: No aphasia. No facial droop. No change in mentation. No head injury. No headache. No paralysis. No paresthesia. Psychiatric: No depression. No anxiety. No mood swings. Endocrine: Noted abnormal blood sugars. No weight change. No excessive sweating or thirst. No cold intolerance. PHYSICAL EXAMINATION Gen: This is a well-developed 56-year-old female, resting in a reclin er, no acute respiratory distress. HEENT: Head is atraumatic, normocephalic. Pupils equal, round. Sclerae is anicteric. NECK: Supple. No JVD. No lymphadenopathy. No thyromegaly. LUNGS: Clear to auscultation. No wheezes or rhonchi. No intercostal retractions. HEART: Regular rate and rhythm. No murmur. ABDOMEN: Soft. Bowel sounds are present. No masses. No tenderness. EXTREMITIES: No calf tenderness. Right shoulder has large dressing in place. Right upper extremity shows edema, 1+ pedal edema to bilateral lower extremities NEUROLOGICAL: Patient is awake, alert and oriented x3. Cranial nerves 2 through 12 are grossly intact. ASSESSMENT AND PLAN 1. Acute infected right AC joint with MRSA bacteremia status post I&D on 01/07, repeat performed on 01/09. Patient is currently on vancomycin, consult with infectious disease appreciated, Percocet for pain. Right upper extremity arterial Doppler positive for superficial phlebitis, chest x-ray.echocardiogram to rule out vegetation - no vegetation present, left ventricle size is normal, EF between 60 and 65%, no pericardial effusion. 2 intractable pain and discomfort in the right shoulder area: Probably could be explained by the infectious site at this point we'll continue pain management. Continue Percocet. Dilaudid discontinued. 3 abnormal liver function test secondary to fatty liver. Patient advised for weight loss. 4 hyperglycemiaContinueek with sliding scale coverage and be done patient has not been diabetic. A16.1 5 hypertension. Patient started on losartan will be increased to 75 mg daily and continue on hydralazine 25 mg every 6 hour for systolic blood pressure above 140. Blood pressure remains elevated. Will start patient on lisinopril HTZ 10.5 daily. 6 frontal and occipital headache. MRI of the brain was negative for acute findings. 7. Shortness of breath. right arterial upper extremity Doppler, chest x-ray 8.candidiasis of the mouth. Clotrimazole 9 GERD/GI prophylaxis: Patient will be on Pepcid. 10. Superficial phlebitis right upper extremity. 81 mg aspirin twice a day. Awaiting recommendations from or so for range of motion. 11. DVT prophylaxis. SCDs and PAULINE kempe. CODE STATUS: Full code. DISCHARGE PLAN Home possible wednesday Impression and plan of care have been directed as dictated by the signing physician. Leeanna Nunez nurse practitioner acting as scribe for signing physician. Objective - Vital Signs Vital signs: Vital Signs Temp 98.9 F 01/11/22 08:00 Pulse 80 01/11/22 08:00 Resp 17 01/11/22 08:00 BP 174/75 01/11/22 08:15 Pulse Ox 96 01/11/22 08:00 Intake & Output 01/10/22 01/11/22 01/11/22 18:59 06:59 18:59 Output Total 800 Balance -800 Output: Urine 800 Other: Voiding Method Toilet # Voids 3 - Labs CBC & Chem 7: 01/06/22 05:16 01/11/22 08:57 Labs: Abnormal Lab Results - Last 24 Hours (Table) 01/10/22 01/10/22 01/10/22 Range/Units 11:36 16:42 21:33 Sodium (137-145) mmol/L Glucose (74-99) mg/dL POC Glucose (mg/dL) 121 H 176 H 164 H (75-99) mg/dL AST (14-36) U/L ALT (4-34) U/L Total Protein (6.3-8.2) g/dL Albumin (3.5-5.0) g/dL Vancomycin Trough ug/mL 01/11/22 01/11/22 01/11/22 Range/Units 06:45 08:57 08:57 Sodium 135 L (137-145) mmol/L Glucose 166 H (74-99) mg/dL POC Glucose (mg/dL) 113 H (75-99) mg/dL AST 42 H (14-36) U/L ALT 60 H (4-34) U/L Total Protein 5.8 L (6.3-8.2) g/dL Albumin 3.0 L (3.5-5.0) g/dL Vancomycin Trough 35.5 H* ug/mL Microbiology - Last 24 Hours (Table) 01/07/22 12:50 Anaerobic Culture - Final Shoulder - Right 01/07/22 12:50 Anaerobic Culture - Final Arm - Right 01/07/22 12:50 Anaerobic Culture - Final Shoulder - Right 01/07/22 12:50 Anaerobic Culture - Final Shoulder - Right 01/07/22 12:50 Anaerobic Culture - Final Arm - Right 01/10/22 06:55 Blood Culture - Preliminary Blood No Growth after 24 hours 01/09/22 05:30 Blood Culture Gram Stain - Preliminary Blood Blood Culture - Preliminary Staphylococcus aureus 01/09/22 14:59 Gram Stain - Preliminary Shoulder - Right Wound Culture - Preliminary Presumptive MRSA 01/09/22 14:59 Gram Stain - Preliminary Shoulder - Right Tissue Culture - Preliminary 01/09/22 14:59 Gram Stain - Preliminary Shoulder - Right Wound Culture - Preliminary Presumptive MRSA 01/08/22 05:22 Blood Culture Gram Stain - Preliminary Blood Blood Culture - Preliminary Presumptive Staph aureus 01/09/22 05:30 Blood Culture - Final Blood
[2022-01-11 11:32] LABS: Glucose,Whole Blood 81 mg/dL (75-99)
[2022-01-11 11:37] LABS: Basophils # (A) 0.04 X 10*3/uL (0.00-0.10); Basophils % (A) 0.5 %; Eosinophils # (A) 0.25 X 10*3/uL (0.04-0.35); HCT 35.4 % (37.2-46.3); HGB 11.7 g/dL (12.0-15.0); Immature Grans, Automated 1.4 %; Lymphocytes # (A) 1.53 X 10*3/uL (0.90-5.00); Lymphocytes % (A) 18.3 %; MCH 30.5 pg (27.0-32.0); MCHC 33.1 g/dL (32.0-37.0); MCV 92.4 fL (80.0-97.0); Mean Platelet Volume 10.2 fL (9.5-12.2); Monocytes # (A) 0.48 X 10*3/uL (0.20-1.00); Monocytes % (A) 5.7 %; NRBC Per 100 WBC 0 /100 WBCS (0.0-0.0); Neutrophils # (A) 5.94 X 10*3/uL (1.80-7.70); Neutrophils % (A) 71.1 %; Platelet Count 334 X 10*3/uL (140-440); RBC 3.83 X 10*6/uL (4.10-5.20); RDW 12.5 % (11.5-14.5); WBC 8.36 X 10*3/uL (4.50-10.00)
[2022-01-11] MEDS ORDERED: ALPRAZolam 0.25 MG TAB PO PRN (14:35)
[2022-01-11] MEDS: SODIUM CHLORIDE 0.9% 1,000 ML IV SCH (16:20)
[2022-01-11 17:09] LABS: Glucose,Whole Blood 114 mg/dL (75-99)
[2022-01-11] MEDS ORDERED: hydrALAZINE HCL 20 MG/ML 1 ML VIAL IVP PRN (21:16)
[2022-01-11] MEDS ORDERED: amLODIPine 5 MG TAB PO STA (21:18)
[2022-01-11] MEDS: MELATONIN 3 MG TABLET PO SCH (21:20)
[2022-01-11] MEDS: FLUTICASONE 50MCG/SPRAY NASAL 16GM EA NOSTRIL SCH (21:20)
--- NOTE | 2022-01-11 21:25 | P.ANPRN ---
Procedure Note - Anesthesia - Nerve Block Performed Right Interscalene Single Time Out Performed: Yes Date of Procedure: 01/09/22 Procedure Start Time: 13:34 Procedure Stop Time: 13:40 Location of Patient: PreOp Indication: Acute Post-Operative Pain, Requested by Surgeon Sedation Type: Sedate with meaningful contact maintained Preparation: Sterile Prep Position: Supine Needle Types: Pajunk Needle Gauge: 21 Ultrasound used to visualize needle placement: Yes Ultrasound used to observe medication spread: Yes Blood Aspirated: No Pain Paresthesia on Injection Noted: No Resistance on Injection: Normal Image Stored and Saved: Yes Events: Uneventful and Well Tolerated (Ropivacaine 0.5% 20 mL)
[2022-01-11] MEDS: hydrALAZINE HCL 20 MG/ML 1 ML VIAL IVP PRN (22:30)
--- NOTE | 2022-01-11 23:32 | P.PN ---
Subjective Progress Note Date: 01/11/22 Principal diagnosis: MRSA bacteremia and right shoulder septic arthritis Patient is a 56 year female presenting to the hospital with intractable pain to the right shoulder area in this patient who did have a MRSA bacteremia concerning for right shoulder septic arthritis. Patient is status post washout of the right shoulder on 01/08/2022 with a repeat procedure 2021 On today's evaluation that is 01/11/2022, the patient denies any fever or chills, the patient pain to the right shoulder is currently controlled, patient denies chest pain or shortness of cough no nausea no vomiting no abdominal pain no diarrhea Objective - Vital Signs Vital signs: Vital Signs Temp 98.9 F 01/11/22 08:00 Pulse 80 01/11/22 08:00 Resp 17 01/11/22 08:00 BP 180/91 01/11/22 11:36 Pulse Ox 96 01/11/22 08:00 Intake & Output 01/10/22 01/11/22 01/11/22 18:59 06:59 18:59 Output Total 800 Balance -800 Output: Urine 800 Other: Voiding Method Toilet # Voids 3 - Exam GENERAL DESCRIPTION: Middle-age female lying in bed in no distress RESPIRATORY SYSTEM: Unlabored breathing , decreased breath sounds at bases HEART: S1 S2 regular rate and rhythm , ABDOMEN: Soft , no tenderness EXTREMITIES: Right shoulder did have a deeper wound wound base is clean some surrounding redness no drainage - Labs CBC & Chem 7: 01/11/22 08:57 01/11/22 08:57 Labs: Abnormal Lab Results - Last 24 Hours (Table) 01/10/22 01/10/22 01/11/22 Range/Units 16:42 21:33 06:45 RBC (4.10-5.20) X 10*6/uL Hgb (12.0-15.0) g/dL Hct (37.2-46.3) % Immature Gran # (0.00-0.04) X 10*3/uL Sodium (137-145) mmol/L Glucose (74-99) mg/dL POC Glucose (mg/dL) 176 H 164 H 113 H (75-99) mg/dL AST (14-36) U/L ALT (4-34) U/L Total Protein (6.3-8.2) g/dL Albumin (3.5-5.0) g/dL Vancomycin Trough ug/mL 01/11/22 01/11/22 01/11/22 Range/Units 08:57 08:57 08:57 RBC 3.83 L (4.10-5.20) X 10*6/uL Hgb 11.7 L (12.0-15.0) g/dL Hct 35.4 L (37.2-46.3) % Immature Gran # 0.12 H (0.00-0.04) X 10*3/uL Sodium 135 L (137-145) mmol/L Glucose 166 H (74-99) mg/dL POC Glucose (mg/dL) (75-99) mg/dL AST 42 H (14-36) U/L ALT 60 H (4-34) U/L Total Protein 5.8 L (6.3-8.2) g/dL Albumin 3.0 L (3.5-5.0) g/dL Vancomycin Trough 35.5 H* ug/mL Microbiology - Last 24 Hours (Table) 01/07/22 12:50 Anaerobic Culture - Final Shoulder - Right 01/07/22 12:50 Anaerobic Culture - Final Arm - Right 01/07/22 12:50 Anaerobic Culture - Final Shoulder - Right 01/07/22 12:50 Anaerobic Culture - Final Shoulder - Right 01/07/22 12:50 Anaerobic Culture - Final Arm - Right 01/10/22 06:55 Blood Culture - Preliminary Blood No Growth after 24 hours 01/09/22 05:30 Blood Culture Gram Stain - Preliminary Blood Blood Culture - Preliminary Staphylococcus aureus 01/09/22 14:59 Gram Stain - Preliminary Shoulder - Right Wound Culture - Preliminary Presumptive MRSA 01/09/22 14:59 Gram Stain - Preliminary Shoulder - Right Tissue Culture - Preliminary 01/09/22 14:59 Gram Stain - Preliminary Shoulder - Right Wound Culture - Preliminary Presumptive MRSA 01/08/22 05:22 Blood Culture Gram Stain - Preliminary Blood Blood Culture - Preliminary Presumptive Staph aureus 01/09/22 05:30 Blood Culture - Final Blood Assessment and Plan (1) Joint infection Current Visit: Yes Status: Acute Code(s): M00.9 - PYOGENIC ARTHRITIS, UN SPECIFIED SNOMED Code(s): 902774429 Plan: 1patient presented to hospital with acute pain to the right shoulder area with no history of any trauma in this patient who did have abdominal MRI and now with evidence of gram-positive bacteremia high clinical suspicious for right shoulder septic arthritis. 2blood cultures from 01/10/2022 are so far negative including remains to be negative at 72 hours she will be able to get a PICC line 3 patient is status post washout of the right shoulder per orthopedics and deep cultures on 01/08/2022 with a repeat washout on 01/09/2022 4 patient to continue with vancomycin pharmacy to dose dose has been cut back because of elevated trough kidney function need to monitor closely, 5local wound care with Aquacel silver packing of the wound and changed every 48 hour
[2022-01-12] MEDS: KETOROLAC 15 MG/ML 1 ML VIAL IVP SCH ×5 (00:51→23:42)
[2022-01-12] MEDS: CLOTRIMAZOLE TROCHE 10 MG TROCHE MUCOUS MEM SCH ×6 (00:52→23:42)
[2022-01-12] MEDS: hydrALAZINE HCL 20 MG/ML 1 ML VIAL IVP PRN (03:04)
[2022-01-12 05:22] LABS: African American GFR (CKD) >90 (>60 ml/min/1.73 sqM); Anion Gap 8 mmol/L; Blood Urea Nitrogen 7 mg/dL (7-17); Calcium 8.7 mg/dL (8.4-10.2); Carbon Dioxide 26 mmol/L (22-30); Chloride 101 mmol/L (98-107); Glucose 109 mg/dL (74-99); Non-African American GFR(CKD) >90 (>60 ml/min/1.73 sqM); Potassium 4.2 mmol/L (3.5-5.1); Sodium 135 mmol/L (137-145)
[2022-01-12 05:27] LABS: Vancomycin,Random 7.9 ug/mL
[2022-01-12] MEDS: ONDANSETRON 4 MG/2 ML VIAL IVP PRN ×2 (06:17→19:31)
[2022-01-12 07:03] LABS: Glucose,Whole Blood 115 mg/dL (75-99)
[2022-01-12] MEDS ORDERED: lisinopriL 20 MG TAB PO STA (08:37)
[2022-01-12] MEDS: oxyCODONE-APAP 5-325MG 1 EACH TAB PO PRN ×3 (08:37→21:54)
[2022-01-12] MEDS: SYMBICORT 160-4.5 MCG INHALER INHALATION SCH ×2 (08:50→20:08)
[2022-01-12] MEDS: INSULIN ASPART (NovoLOG) 100 UNIT/ML VIAL SQ SCH ×4 (09:20→21:53)
[2022-01-12] MEDS: GABAPENTIN 300 MG CAP PO SCH ×2 (09:24→21:53)
[2022-01-12] MEDS: LOSARTAN 25 MG TAB PO SCH (09:24)
[2022-01-12] MEDS: PANTOPRAZOLE 40 MG TABLET PO SCH (09:24)
[2022-01-12] MEDS: rifAMPin 300 MG CAP PO SCH ×2 (09:25→21:53)
[2022-01-12] MEDS: ASPIRIN 81 MG PO SCH ×2 (09:25→21:53)
[2022-01-12] MEDS: ENOXAPARIN 40 MG/0.4 ML SYRINGE SQ SCH (09:25)
[2022-01-12] MEDS: VANCOMYCIN 1,750 MG in SODIUM CHLORIDE 0.9% 500 ML 500 ML IVPB SCH ×2 (09:34→21:54)
[2022-01-12] MEDS ORDERED: LOSARTAN 25 MG TAB PO STA (10:24)
--- NOTE | 2022-01-12 10:25 | P.PN ---
Subjective Progress Note Date: 01/12/22 HISTORY OF PRESENT ILLNESS 56-year-old female one of our office patient with past medical history of GERD and mildly elevated blood pressure apparently has been doing well the blood to have significant neck pain and shoulder pain ended up going for deep tissue massage this past week on Wednesday or developed to have severe right shoulder and arm pain could not sleep the night ended up [facility] were patient exam was consistent with severe skeletal muscular pain she was prescribed steroid along with muscle relaxer and medication for pain. Patient presented to the emergency department yesterday with severe intractable pain, CT at the ER shows no evidence of joint effusion at the time but had some fluid in the acromioclavicular joint with significant soft tissue swelling of the time. She ended up seen Dr. Brar in the emergency room joint aspiration was done and sent for culture patient was to continue medication. An MRI was schedule for patient as an outpatient but surprisingly the culture came back positive for gram-positivei patient [facility] was having no fever or chills at the time decided to have patient hospitalized due to MRI urgent and start patient on IV antibiotics right away. 01/06: Patient continues to have significant pain in her right shoulder also complains of pain in her neck and jaw, her has related that she had been scratching the base of her neck and base of the skull quite a bit over the past couple weeks. 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 Patient has been seen by orthopedics and scheduled for I&D of the right shoulder before meals joint for tomorrow. Patient has been afebrile, heart rate 83, blood pressure 162/79, pulse ox 96% on room air. Repeat blood work reveals normal CBC. Sodium 135, chloride 97, creatinine 0.65. AST 61 and ALT 140. Capillary blood glucose 154. Blood cultures are positive for Staphylococcus aureus. Repeat sed rate and CRP ordered. Also hemoglobin A1c ordered. Patient has no history of diabetes. MRI of the right shoulder revealed shoulder joint effusion. Subdeltoid effusion. Fluid accumulation in the subcutaneous tissues as well as around the supra splenitis and infraspinatus muscle consistent with infectious or inflammatory process. No discrete abscess. No evidence of full-thickness rotator cuff tear. Moderate fluid accumulation seen in the before meals joint that could relate to septic arthritis. Abdominal ultrasound revealed nonspecific pattern to the liver can be seen with hepatic steatosis, diffuse hepatocellular disease including hepatitis. Correlate with renal function studies to assess for chronic medical renal disease. No hydronephrosis or nephrolithiasis. 01/07: Patient is complaining of significant headache to the frontal area as well as the occipital region. An MRI of the brain will be ordered. Discussed results of ultrasound finding fatty liver with recommendations for weight loss. Sinus CAT scan was negative. She is scheduled today for I&D of the right shoulder. Patient is continued on vancomycin. Patient remains afebrile. Hepatitis panel was negative. Lipase 69. MRI of the brain reveals mild nonspecific white matter changes may be on the basis of altered vascular mechanics related to proximal migraine headaches. Non-visualization of portions of the basilar artery could reflect significant stenosis and/or areas of occlusion. Advised CTA or MRA of the brain and [place] [facility] [place] follow-up to further evaluate. 01/08: Yesterday, patient underwent right shoulder before meals joint incision and drainage irrigation and sharp excisional debridement of ligament tissue and fibrous tissue within the before meals joint. Open irrigation of subacromial with Hemovac drain placement. Deep cultures from subacromial space and before m eals joint, tissue biopsy before meals joint were obtained. Patient states that her pain in her right shoulder is significantly improved but she did have a block done yesterday. She states the pain is now a dull ache. She states that she had an episode last evening with chest pain and cold sweats and EKG showed no acute findings. Blood sugar was also up to 219 last evening. A1c came back at 6.1. Repeat blood cultures to be obtained today but previous were positive for MRSA. Wound culture presumptive MRSA. Patient has been continued on vancomycin. She is scheduled for a second debridement of the right shoulder tomorrow. 01/09: Patient states that pain is returned and was severe similar to the pain that brought her into the hospital and started at 5 PM last night. She was able to sleep last night but woke up at 4 with severe pain. Patient is scheduled for second I&D today with Dr. Lilly.she denies having any fever or chills. She has been afebrile, heart rate 80s, blood pressure 164/78 and losartan will be adjusted and increased to 75 mg twice daily. Pulse ox is 93% on room air. 01/10: patient is found sitting up in a chair. Shoulder and was mobilized. Patient did have a I&D with washout yesterday. patient had an episode of shortness of breath and coughing last night. She does have some edema to the right upper extremity. It isn't mobile. We will order a chest x-ray, right upper extremity arterial Doppler due to the shortness of breath. Patient also has yeast noted to her mucous membrane. Patient states that the pain is manageable. echocardiogram to rule out vegetation. patient remains afebrile, heart rate 79, respirations 18, blood pressure elevated at 182/102. creatinine 0.58. 01/11: Right upper extremity Doppler showed positive superficial phlebitis. Joshua salmon denies any chest pain or shortness of breath with activity. Denies cough. No nausea or vomiting. Patient was started on aspirin 81 mg twice a day. Recommendations for range of motion from or so. Patient continues to have elevated blood pressures greater than 200. Patient was given hydralazine as needed. We will start patient on lisinopril HTZ. Echo cardiogram results noted below. Patient remains afebrile, heart rate 80, blood pressure 184/70, respirations 16, pulse ox 96% on room air. Potassium 3.9, B UN 7 creatinine 0.58 01/12: Patient is having improved right shoulder pain status post right interscalene nerve block 01/11. Her blood pressure remains elevated and changes are being made. She is waiting for blood culture was no growth after 72 hours, currently at 24 hours, before PICC line can be placed. Anticipate possible discharge on Wednesday. Echocardiogram reveals no vegetation, left ventricle size normal, EF 60-65%, no pericardial effusion. REVIEW OF SYSTEMS Constitutional: No fever, no chills, no night sweats. No weight change. No weakness, fatigue or lethargy. No daytime sleepiness. EENT: No headache. No blurred vision or double vision, no loss of vision. No loss of Hearing, no ringing in the ears, no dizziness. No nasal drainage or congestion. No epistaxis. No sore throat. Lungs: No shortness of breath, cough, no sputum production. No wheezing. Cardiovascular: No chest pain, no lower extremity edema. No palpitations. No paroxysmal nocturnal dyspnea. No orthopnea. No lightheadedness or dizziness. No syncopal episodes. Abdominal: No abdominal pain. No nausea, vomiting. No diarrhea. No constipation. No bloody or tarry stools.. No loss of appetite. Genitourinary: No dysuria, increased frequency, urgency. No urinary retention. Musculoskeletal: Right shoulder restriction to motion with neck pain as well., no gait dysfunction, no frequent falls. No back pain. Reports improvement of right shoulder pain. Integumentary: No wounds, no lesions. No rash or pruritus. No unusual bruising. No change in hair or nails. Neurologic: No aphasia. No facial droop. No change in mentation. No head injury. No headache. No paralysis. No paresthesia. Psychiatric: No depression. No anxiety. No mood swings. Endocrine: Noted abnormal blood sugars. No weight change. PHYSICAL EXAMINATION Gen: This is a well-developed 56-year-old female, resting in bed, no acute respiratory distress. HEENT: Head is atraumatic, normocephalic. Pupils equal, round. Sclerae is anicteric. NECK: Supple. No JVD. No lymphadenopathy. No thyromegaly. LUNGS: Clear to auscultation. No wheezes or rhonchi. No intercostal retractions. HEART: Regular rate and rhythm. No murmur. ABDOMEN: Soft. Bowel sounds are present. No masses. No tenderness. EXTREMITIES: No calf tenderness. Right shoulder has large dressing in place. Right upper extremity shows edema, trace pedal edema to bilateral lower extremities NEUROLOGICAL: Patient is awake, alert and oriented x3. Cranial nerves 2 through 12 are grossly intact. ASSESSMENT AND PLAN 1. Acute infected right AC joint with MRSA bacteremia status post I&D on 01/07, repeat performed on 01/09. Continue patient on vancomycin, pharmacy dosing, Dr. Almaguer added and rifampin. Patient will need blood culture with no growth at 72 hours before PICC line can be placed. 2 intractable pain and discomfort in the right shoulder area: Probably could be explained by the infectious site at this point we'll continue pain management. Continue Percocet. Dilaudid discontinued. 3 abnormal liver function test secondary to fatty liver. Patient advised for weight loss. 4 hyperglycemia Continue with sliding scale coverage and be done patient has not been diabetic. A16.1 5 hypertension. Continue patient on losartan increased to 100 mg daily, and hydralazine 25 mg 4 times daily as needed. 6 frontal and occipital headache. MRI of the brain was negative for acute findings. 7. Shortness of breath. right arterial upper extremity Doppler, chest x-ray 8.candidiasis of the mouth. Clotrimazole 9 GERD/GI prophylaxis: Patient will be on Pepcid. 10. Superficial phlebitis right upper extremity. 81 mg aspirin twice a day. Awaiting recommendations from or so for range of motion. 11. DVT prophylaxis. SCDs and PAULINE hose. CODE STATUS: Full code. DISCHARGE PLAN Home Impression and plan of care have been directed as dictated by the signing physician. Ruby Candelario nurse practitioner acting as scribe for signing physician. Objective - Vital Signs Vital signs: Vital Signs Temp 98.5 F 01/12/22 02:00 Pulse 72 01/12/22 02:00 Resp 16 01/12/22 02:00 BP 160/81 01/12/22 02:00 Pulse Ox 95 01/12/22 02:00 Intake & Output 01/11/22 01/12/22 01/12/22 18:59 06:59 18:59 Output Total 1000 Balance -1000 Output: Urine 800 Emesis 200 Other: Voiding Method Toilet Toilet # Voids 4 4 - Labs CBC & Chem 7: 01/11/22 08:57 01/12/22 04:07 Labs: Abnormal Lab Results - Last 24 Hours (Table) 01/11/22 01/11/22 01/11/22 Range/Units 08:57 08:57 08:57 RBC 3.83 L (4.10-5.20) X 10*6/uL Hgb 11.7 L (12.0-15.0) g/dL Hct 35.4 L (37.2-46.3) % Immature Gran # 0.12 H (0.00-0.04) X 10*3/uL Sodium 135 L (137-145) mmol/L Creatinine (0.52-1.04) mg/dL Glucose 166 H (74-99) mg/dL POC Glucose (mg/dL) (75-99) mg/dL AST 42 H (14-36) U/L ALT 60 H (4-34) U/L Total Protein 5.8 L (6.3-8.2) g/dL Albumin 3.0 L (3.5-5.0) g/dL Vancomycin Trough 35.5 H* ug/mL 01/11/22 01/12/22 01/12/22 Range/Units 17:08 04:07 07:02 RBC (4.10-5.20) X 10*6/uL Hgb (12.0-15.0) g/dL Hct (37.2-46.3) % Immature Gran # (0.00-0.04) X 10*3/uL Sodium 135 L (137-145) mmol/L Creatinine 0.48 L (0.52-1.04) mg/dL Glucose 109 H (74-99) mg/dL POC Glucose (mg/dL) 114 H 115 H (75-99) mg/dL AST (14-36) U/L ALT (4-34) U/L Total Protein (6.3-8.2) g/dL Albumin (3.5-5.0) g/dL Vancomycin Trough ug/mL Microbiology - Last 24 Hours (Table) 01/09/22 14:59 Anaerobic Culture - Preliminary Shoulder - Right 01/09/22 14:59 Anaerobic Culture - Preliminary Shoulder - Right 01/09/22 14:59 Anaerobic Culture - Preliminary Shoulder - Right 01/09/22 14:59 Gram Stain - Final Shoulder - Right Wound Culture - Final Methicillin resist S. aureus 01/09/22 14:59 Gram Stain - Final Shoulder - Right Wound Culture - Final Methicillin resist S. aureus 01/09/22 14:59 Gram Stain - Preliminary Shoulder - Right Tissue Culture - Preliminary 01/09/22 05:30 Blood Culture Gram Stain - Preliminary Blood Blood Culture - Preliminary Presumptive MRSA 01/08/22 05:22 Blood Culture Gram Stain - Final Blood Blood Culture - Final Methicillin resist S. aureus 01/07/22 12:50 Anaerobic Culture - Final Shoulder - Right 01/07/22 12:50 Anaerobic Culture - Final Arm - Right 01/07/22 12:50 Anaerobic Culture - Final Shoulder - Right 01/07/22 12:50 Anaerobic Culture - Final Shoulder - Right 01/07/22 12:50 Anaerobic Culture - Final Arm - Right 01/10/22 06:55 Blood Culture - Preliminary Blood No Growth after 24 hours
[2022-01-12 11:14] LABS: Glucose,Whole Blood 85 mg/dL (75-99)
[2022-01-12 13:40] VITALS: BMI 32.1
--- NOTE | 2022-01-12 14:02 | P.PN ---
Subjective Progress Note Date: 01/12/22 This is a 56-year-old female who is status post irrigation and debridement of the right shoulder. This is postoperative day #3. Patient is seen and evaluated at bedside today. Patient denies any new complaints today. Objective - Vital Signs Vital signs: Vital Signs Temp 97.5 F L 01/12/22 08:00 Pulse 90 01/12/22 08:00 Resp 18 01/12/22 08:00 BP 164/80 01/12/22 08:00 Pulse Ox 97 01/12/22 08:00 Intake & Output 01/11/22 01/12/22 01/12/22 18:59 06:59 18:59 Output Total 1000 Balance -1000 Weight 77.111 kg Output: Urine 800 Emesis 200 Other: Voiding Method Toilet Toilet # Voids 4 4 - Exam Vital signs are stable. Patient is in no acute distress and is alert and oriented 3. Calf is soft and nontender to palpation. Dressing clean, dry and intact. Patient has full motion of the right elbow, wrist and hand without pain or difficulty. Sensation intact. Neurovascular status and circulatory status are intact. - Labs CBC & Chem 7: 01/11/22 08:57 01/12/22 04:07 Labs: Abnormal Lab Results - Last 24 Hours (Table) 01/11/22 01/12/22 01/12/22 Range/Units 17:08 04:07 07:02 Sodium 135 L (137-145) mmol/L Creatinine 0.48 L (0.52-1.04) mg/dL Glucose 109 H (74-99) mg/dL POC Glucose (mg/dL) 114 H 115 H (75-99) mg/dL Microbiology - Last 24 Hours (Table) 01/11/22 08:57 Blood Culture - Preliminary Blood No Growth after 24 hours 01/10/22 06:55 Blood Culture - Preliminary Blood No Growth after 48 hours 01/09/22 14:59 Anaerobic Culture - Preliminary Shoulder - Right 01/09/22 14:59 Anaerobic Culture - Preliminary Shoulder - Right 01/09/22 14:59 Anaerobic Culture - Preliminary Shoulder - Right 01/09/22 14:59 Gram Stain - Final Shoulder - Right Wound Culture - Final Methicillin resist S. aureus 01/09/22 14:59 Gram Stain - Final Shoulder - Right Wound Culture - Final Methicillin resist S. aureus 01/09/22 14:59 Gram Stain - Preliminary Shoulder - Right Tissue Culture - Preliminary 01/09/22 05:30 Blood Culture Gram Stain - Preliminary Blood Blood Culture - Preliminary Presumptive MRSA 01/08/22 05:22 Blood Culture Gram Stain - Final Blood Blood Culture - Final Methicillin resist S. aureus Assessment and Plan (1) Joint infection Current Visit: Yes Status: Acute Code(s): M00.9 - PYOGENIC ARTHRITIS, UNSPECIFIED SNOMED Code(s): 111196300 (2) Positive blood culture Current Visit: Yes Status: Acute Code(s): R78.81 - BACTEREMIA SNOMED Code(s): 387074712 (3) Acromioclavicular joint arthritis Current Visit: No Status: Acute Code(s): M19.019 - PRIMARY OSTEOARTHRITIS, UNSPECIFIED SHOULDER SNOMED Code(s): 219662687 (4) Right shoulder pain Current Visit: No Status: Acute Code(s): M25.511 - PAIN IN RIGHT SHOULDER SNOMED Code(s): 35220817 Plan: 1. Continue routine postoperative care and pain control. 2. Wound care and IV antibiotics per infectious disease. 3. Appreciate input from internal medicine. 4. Patient is awaiting PICC line placement which will be done once blood cultures are negative for 72 hours.
[2022-01-12] MEDS: hydrALAZINE HCL 25 MG TAB PO PRN ×2 (15:30→21:54)
[2022-01-12] MEDS: SODIUM CHLORIDE 0.9% 1,000 ML IV SCH (15:33)
[2022-01-12 16:47] LABS: Glucose,Whole Blood 177 mg/dL (75-99)
[2022-01-12] MEDS: DOCUSATE 100 MG CAP PO PRN (17:31)
[2022-01-12 20:45] LABS: Glucose,Whole Blood 124 mg/dL (75-99)
--- NOTE | 2022-01-12 21:20 | P.PN ---
Subjective Progress Note Date: 01/12/22 Principal diagnosis: MRSA bacteremia and right shoulder septic arthritis Patient is a 56 year female presenting to the hospital with intractable pain to the right shoulder area in this patient who did have a MRSA bacteremia concerning for right shoulder septic arthritis. Patient is status post washout of the right shoulder on 01/08/2022 with a repeat procedure 2021 On today's evaluation that is 01/12/2022, the patient remains to be afebrile, the patient pain to the right shoulder is currently controlled, patient denies chest pain or shortness of cough no nausea no vomiting no abdominal pain no diarrhea, feeling slightly better Objective - Vital Signs Vital signs: Vital Signs Temp 97.5 F L 01/12/22 08:00 Pulse 90 01/12/22 08:00 Resp 18 01/12/22 08:00 BP 164/80 01/12/22 08:00 Pulse Ox 97 01/12/22 08:00 Intake & Output 01/11/22 01/12/22 01/12/22 18:59 06:59 18:59 Output Total 1000 Balance -1000 Output: Urine 800 Emesis 200 Other: Voiding Method Toilet Toilet # Voids 4 4 - Exam GENERAL DESCRIPTION: Middle-age female lying in bed in no distress RESPIRATORY SYSTEM: Unlabored breathing , decreased breath sounds at bases HEART: S1 S2 regular rate and rhythm , ABDOMEN: Soft , no tenderness EXTREMITIES: Right shoulder did have a deeper wound wound base is clean some surrounding redness no drainage - Labs CBC & Chem 7: 01/11/22 08:57 01/12/22 04:07 Labs: Abnormal Lab Results - Last 24 Hours (Table) 01/11/22 01/12/22 01/12/22 Range/Units 17:08 04:07 07:02 Sodium 135 L (137-145) mmol/L Creatinine 0.48 L (0.52-1.04) mg/dL Glucose 109 H (74-99) mg/dL POC Glucose (mg/dL) 114 H 115 H (75-99) mg/dL Microbiology - Last 24 Hours (Table) 01/11/22 08:57 Blood Culture - Preliminary Blood No Growth after 24 hours 01/10/22 06:55 Blood Culture - Preliminary Blood No Growth after 48 hours 01/09/22 14:59 Anaerobic Culture - Preliminary Shoulder - Right 01/09/22 14:59 Anaerobic Culture - Preliminary Shoulder - Right 01/09/22 14:59 Anaerobic Culture - Preliminary Shoulder - Right 01/09/22 14:59 Gram Stain - Final Shoulder - Right Wound Culture - Final Methicillin resist S. aureus 01/09/22 14:59 Gram Stain - Final Shoulder - Right Wound Culture - Final Methicillin resist S. aureus 01/09/22 14:59 Gram Stain - Preliminary Shoulder - Right Tissue Culture - Preliminary 01/09/22 05:30 Blood Culture Gram Stain - Preliminary Blood Blood Culture - Preliminary Presumptive MRSA 01/08/22 05:22 Blood Culture Gram Stain - Final Blood Blood Culture - Final Methicillin resist S. aureus 01/07/22 12:50 Anaerobic Culture - Final Shoulder - Right 01/07/22 12:50 Anaerobic Culture - Final Arm - Right 01/07/22 12:50 Anaerobic Culture - Final Shoulder - Right 01/07/22 12:50 Anaerobic Culture - Final Shoulder - Right 01/07/22 12:50 Anaerobic Culture - Final Arm - Right Assessment and Plan (1) Joint infection Current Visit: Yes Status: Acute Code(s): M00.9 - PYOGENIC ARTHRITIS, UNSPECIFIED SNOMED Code(s): 793340502 Plan: 1patient presented to hospital with acute pain to the right shoulder area with no history of any trauma in this patient who did have abdominal MRI and now with evidence of gram-positive bacteremia high clinical suspicious for right shoulder septic arthritis. 2blood cultures from 01/10/2022 are so far negative including remains to be negative at 72 hours she will be able to get a PICC line 3 patient is status post washout of the right shoulder per orthopedics and deep cultures on 01/08/2022 with a repeat washout on 01/09/2022 4 local wound care with Aquacel silver packing of the wound and changed every 48 hour 5-patient vancomycin level has been low and elevated we'll discuss with the pharmacy if hard time getting a therapeutic level will need to convert her to daptomycin, Time with Patient: Less than 30
[2022-01-12] MEDS: MELATONIN 3 MG TABLET PO SCH (21:53)
[2022-01-12] MEDS: FLUTICASONE 50MCG/SPRAY NASAL 16GM EA NOSTRIL SCH (21:53)
[2022-01-13] MEDS: hydrALAZINE HCL 25 MG TAB PO PRN ×2 (02:34→21:46)
[2022-01-13] MEDS: oxyCODONE-APAP 5-325MG 1 EACH TAB PO PRN ×5 (03:39→21:46)
[2022-01-13] MEDS: KETOROLAC 15 MG/ML 1 ML VIAL IVP SCH (05:35)
[2022-01-13] MEDS: CLOTRIMAZOLE TROCHE 10 MG TROCHE MUCOUS MEM SCH ×5 (05:36→23:45)
[2022-01-13 06:54] LABS: Glucose,Whole Blood 107 mg/dL (75-99)
[2022-01-13] MEDS: INSULIN ASPART (NovoLOG) 100 UNIT/ML VIAL SQ SCH ×4 (07:04→21:48)
[2022-01-13] MEDS: PANTOPRAZOLE 40 MG TABLET PO SCH (09:13)
[2022-01-13] MEDS: ASPIRIN 81 MG PO SCH ×2 (09:13→19:42)
[2022-01-13] MEDS: DOCUSATE 100 MG CAP PO SCH ×2 (09:13→19:42)
[2022-01-13] MEDS: ENOXAPARIN 40 MG/0.4 ML SYRINGE SQ SCH (09:14)
[2022-01-13] MEDS: GABAPENTIN 300 MG CAP PO SCH ×2 (09:14→19:42)
[2022-01-13] MEDS: LOSARTAN 50 MG TAB PO SCH (09:14)
[2022-01-13] MEDS: VANCOMYCIN 1,750 MG in SODIUM CHLORIDE 0.9% 500 ML 500 ML IVPB SCH ×2 (09:15→21:45)
[2022-01-13] MEDS: SYMBICORT 160-4.5 MCG INHALER INHALATION SCH ×2 (09:34→21:15)
[2022-01-13] MEDS: rifAMPin 300 MG CAP PO SCH ×2 (10:02→19:43)
[2022-01-13] MEDS: BACLOFEN 10 MG TAB PO PRN (10:51)
--- NOTE | 2022-01-13 11:17 | P.PN ---
Subjective Progress Note Date: 01/13/22 HISTORY OF PRESENT ILLNESS 56-year-old female one of our office patient with past medical history of GERD and mildly elevated blood pressure apparently has been doing well the blood to have significant neck pain and shoulder pain ended up going for deep tissue massage this past week on Wednesday or developed to have severe right shoulder and arm pain could not sleep the night ended up seen Dr. Whelan [facility]22 were patient exam was consistent with severe skeletal muscular pain she was prescribed steroid along with muscle relaxer and medication for pain. Patient presented to the emergency department yesterday with severe intractable pain, CT at the ER shows no evidence of joint effusion at the time but had some fluid in the acromioclavicular joint with significant soft tissue swelling of the time. She ended up seen Dr. Brar in the emergency room joint aspiration was done and sent for culture patient was to continue medication. An MRI was schedule for patient as an outpatient but surprisingly the culture came back positive for gram-positivei patient [facility] was having no fever or chills at the time decided to have patient hospitalized due to MRI urgent and start patient on IV antibiotics right away. 01/06: Patient continues to have significant pain in her right shoulder also complains of pain in her neck and jaw, her has related that she had been scratching the base of her neck and base of the skull quite a bit over the past couple weeks. 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 Patient has been seen by orthopedics and scheduled for I&D of the right shoulder before meals joint for tomorrow. Patient has been afebrile, heart rate 83, blood pressure 162/79, pulse ox 96% on room air. Repeat blood work reveals normal CBC. Sodium 135, chloride 97, creatinine 0.65. AST 61 and ALT 140. Capillary blood glucose 154. Blood cultures are positive for Staphylococcus aureus. Repeat sed rate and CRP ordered. Also hemoglobin A1c ordered. Patient has no history of diabetes. MRI of the right shoulder revealed shoulder joint effusion. Subdeltoid effusion. Fluid accumulation in the subcutaneous tissues as well as around the supra splenitis and infraspinatus muscle consistent with infectious or inflammatory process. No discrete abscess. No evidence of full-thickness rotator cuff tear. Moderate fluid accumulation seen in the before meals joint that could relate to septic arthritis. Abdominal ultrasound revealed nonspecific pattern to the liver can be seen with hepatic steatosis, diffuse hepatocellular disease including hepatitis. Correlate with renal function studies to assess for chronic medical renal disease. No hydronephrosis or nephrolithiasis. 01/07: Patient is complaining of significant headache to the frontal area as well as the occipital region. An MRI of the brain will be ordered. Discussed results of ultrasound finding fatty liver with recommendations for weight loss. Sinus CAT scan was negative. She is scheduled today for I&D of the right shoulder. Patient is continued on vancomycin. Patient remains afebrile. Hepatitis panel was negative. Lipase 69. MRI of the brain reveals mild nonspecific white matter changes may be on the basis of altered vascular mechanics related to proximal migraine headaches. Non-visualization of portions of the basilar artery could reflect significant stenosis and/or areas of occlusion. Advised CTA or MRA of the brain and eklutna of López follow-up to further evaluate. 01/08: Yesterday, patient underwent right shoulder before meals joint incision and drainage irrigation and sharp excisional debridement of ligament tissue and fibrous tissue within the before meals joint. Open irrigation of subacromial with Hemovac drain placement. Deep cultures from subacromial space and before m eals joint, tissue biopsy before meals joint were obtained. Patient states that her pain in her right shoulder is significantly improved but she did have a block done yesterday. She states the pain is now a dull ache. She states that she had an episode last evening with chest pain and cold sweats and EKG showed no acute findings. Blood sugar was also up to 219 last evening. A1c came back at 6.1. Repeat blood cultures to be obtained today but previous were positive for MRSA. Wound culture presumptive MRSA. Patient has been continued on vancomycin. She is scheduled for a second debridement of the right shoulder tomorrow. 01/09: Patient states that pain is returned and was severe similar to the pain that brought her into the hospital and started at 5 PM last night. She was able to sleep last night but woke up at 4 with severe pain. Patient is scheduled for second I&D today with Dr. Lilly.she denies having any fever or chills. She has been afebrile, heart rate 80s, blood pressure 164/78 and losartan will be adjusted and increased to 75 mg twice daily. Pulse ox is 93% on room air. 01/10: patient is found sitting up in a chair. Shoulder and was mobilized. Patient did have a I&D with washout yesterday. patient had an episode of shortness of breath and coughing last night. She does have some edema to the right upper extremity. It isn't mobile. We will order a chest x-ray, right upper extremity arterial Doppler due to the shortness of breath. Patient also has yeast noted to her mucous membrane. Patient states that the pain is manageable. echocardiogram to rule out vegetation. patient remains afebrile, heart rate 79, respirations 18, blood pressure elevated at 182/102. creatinine 0.58. 01/11: Right upper extremity Doppler showed positive superficial phlebitis. Joshua salmon denies any chest pain or shortness of breath with activity. Denies cough. No nausea or vomiting. Patient was started on aspirin 81 mg twice a day. Recommendations for range of motion from or so. Patient continues to have elevated blood pressures greater than 200. Patient was given hydralazine as needed. We will start patient on lisinopril HTZ. Echo cardiogram results noted below. Patient remains afebrile, heart rate 80, blood pressure 184/70, respirations 16, pulse ox 96% on room air. Potassium 3.9, B UN 7 creatinine 0.58 01/12: Patient is having improved right shoulder pain status post right interscalene nerve block 01/11. Her blood pressure remains elevated and changes are being made. She is waiting for blood culture was no growth after 72 hours, currently at 24 hours, before PICC line can be placed. Anticipate possible discharge on Wednesday. Echocardiogram reveals no vegetation, left ventricle size normal, EF 60-65%, no pericardial effusion. 01/13: The patient states the pain to her right shoulder is improved today. Blood culture from 01/10 is no growth at 72 hours. PICC line ordered. Medication reconciliation has been reviewed for discharge. Anticipate possible discharge home today once arrangements are completed. 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 Patient is complaining of constipation, Colace changed to scheduled twice daily and milk of magnesia recommended prune juice as well. REVIEW OF SYSTEMS Constitutional: No fever, no chills, no night sweats. No weight change. No weakness, fatigue or lethargy. No daytime sleepiness. EENT: No headache. No blurred vision or double vision, no loss of vision. No loss of Hearing, no ringing in the ears, no dizziness. No nasal drainage or congestion. No epistaxis. No sore throat. Lungs: No shortness of breath, cough, no sputum production. No wheezing. Cardiovascular: No chest pain, no lower extremity edema. No palpitations. No paroxysmal nocturnal dyspnea. No orthopnea. No lightheadedness or dizziness. No syncopal episodes. Abdominal: No abdominal pain. No nausea, vomiting. No diarrhea. No constipation. No bloody or tarry stools.. No loss of appetite. Genitourinary: No dysuria, increased frequency, urgency. No urinary retention. Musculoskeletal: Right shoulder restriction to motion with neck pain as well., no gait dysfunction, no frequent falls. No back pain. Reports improvement of right shoulder pain. Integumentary: No wounds, no lesions. No rash or pruritus. No unusual bruising. No change in hair or nails. Neurologic: No aphasia. No facial droop. No change in mentation. No head injury. No headache. No paralysis. No paresthesia. Psychiatric: No depression. No anxiety. No mood swings. Endocrine: Noted abnormal blood sugars. No weight change. PHYSICAL EXAMINATION Gen: This is a well-developed 56-year-old female, resting in bed, no acute respiratory distress. HEENT: Head is atraumatic, normocephalic. Pupils equal, round. Sclerae is anicteric. NECK: Supple. No JVD. No lymphadenopathy. No thyromegaly. LUNGS: Clear to auscultation. No wheezes or rhonchi. No intercostal retractions. HEART: Regular rate and rhythm. No murmur. ABDOMEN: Soft. Bowel sounds are present. No masses. No tenderness. EXTREMITIES: No calf tenderness. Right shoulder has large dressing in place. Trace pedal edema to bilateral lower extremities NEUROLOGICAL: Patient is awake, alert and oriented x3. Cranial nerves 2 through 12 are grossly intact. ASSESSMENT AND PLAN 1. Acute infected right AC joint with MRSA bacteremia status post I&D on 01/07, repeat performed on 01/09. Continue patient on vancomycin, pharmacy dosing, Dr. Lott added rifampin. PICC line ordered. 2 intractable pain and discomfort in the right shoulder area: Probably could be explained by the infectious site at this point we'll continue pain management. Continue Percocet. Dilaudid discontinued. 3 abnormal liver function test secondary to fatty liver. Patient advised for weight loss. 4 hyperglycemia Continue with sliding scale coverage and be done patient has not been diabetic. A16.1 5 hypertension. Continue patient on losartan 100 mg daily and added amlodipine 5 mg daily and hydralazine 25 mg 4 times daily as needed. Prescriptions of been sent to her pharmacy. 6 frontal and occipital headache. MRI of the brain was negative for acute findings. 7. Shortness of breath. 8.candidiasis of the mouth. Clotrimazole 9 GERD/GI prophylaxis: Patient will be on Pepcid. 10. Superficial phlebitis right upper extremity. 81 mg aspirin twice a day. Awaiting recommendations from or so for range of motion. 11. DVT prophylaxis. SCDs and [place]. CODE STATUS: Full code. DISCHARGE PLAN Home with VNA and IV antibiotics Impression and plan of care have been directed as dictated by the signing physician. Ruby Candelario nurse practitioner acting as scribe for signing physician. Objective - Vital Signs Vital signs: Vital Signs Temp 97.9 F 01/13/22 06:51 Pulse 73 01/13/22 06:51 Resp 16 01/13/22 06:51 BP 149/85 01/13/22 06:51 Pulse Ox 96 01/13/22 06:51 Intake & Output 01/12/22 01/13/22 01/13/22 18:59 06:59 18:59 Weight 77.111 kg Other: Voiding Method Toilet Toilet - Labs CBC & Chem 7: 01/11/22 08:57 01/12/22 04:07 Labs: Abnormal Lab Results - Last 24 Hours (Table) 01/12/22 01/12/22 01/13/22 Range/Units 16:45 20:42 06:40 POC Glucose (mg/dL) 177 H 124 H (75-99) mg/dL C-Reactive Protein 3.7 H (<1.0) mg/dL 01/13/22 Range/Units 06:52 POC Glucose (mg/dL) 107 H (75-99) mg/dL C-Reactive Protein (<1.0) mg/dL Microbiology - Last 24 Hours (Table) 01/09/22 14:59 Gram Stain - Preliminary Shoulder - Right Tissue Culture - Preliminary 01/09/22 05:30 Blood Culture Gram Stain - Final Blood Blood Culture - Final Methicillin resist S. aureus 01/11/22 08:57 Blood Culture - Preliminary Blood No Growth after 24 hours 01/10/22 06:55 Blood Culture - Preliminary Blood No Growth after 48 hours
[2022-01-13 11:38] LABS: Glucose,Whole Blood 125 mg/dL (75-99)
[2022-01-13] MEDS: amLODIPine 5 MG TAB PO SCH (11:48)
--- NOTE | 2022-01-13 12:43 | P.PN ---
Subjective Progress Note Date: 01/13/22 This is a 56-year-old female who is status post irrigation and debridement of the right shoulder. This is postoperative day #4. Patient is seen and evaluated at bedside today. Patient denies any new complaints today. Objective - Vital Signs Vital signs: Vital Signs Temp 97.9 F 01/13/22 06:51 Pulse 85 01/13/22 11:47 Resp 16 01/13/22 06:51 BP 161/75 01/13/22 11:47 Pulse Ox 96 01/13/22 06:51 Intake & Output 01/12/22 01/13/22 01/13/22 18:59 06:59 18:59 Intake Total 180 Balance 180 Weight 77.111 kg Intake: Oral 180 Other: Voiding Method Toilet Toilet Toilet - Exam Vital signs are stable. Patient is in no acute distress and is alert and oriented 3. Calf is soft and nontender to palpation. Dressing clean, dry and intact. Patient has full motion of the right elbow, wrist and hand without pain or difficulty. Sensation intact. Neurovascular status and circulatory status are intact. - Labs CBC & Chem 7: 01/11/22 08:57 01/12/22 04:07 Labs: Abnormal Lab Results - Last 24 Hours (Table) 01/12/22 01/12/22 01/13/22 Range/Units 16:45 20:42 06:40 ESR (0-20) mm/hr POC Glucose (mg/dL) 177 H 124 H (75-99) mg/dL C-Reactive Protein 3.7 H (<1.0) mg/dL 01/13/22 01/13/22 01/13/22 Range/Units 06:52 07:45 11:37 ESR 84 H (0-20) mm/hr POC Glucose (mg/dL) 107 H 125 H (75-99) mg/dL C-Reactive Protein (<1.0) mg/dL Microbiology - Last 24 Hours (Table) 01/11/22 08:57 Blood Culture - Preliminary Blood No Growth after 48 hours 01/10/22 06:55 Blood Culture - Preliminary Blood No Growth after 72 hours 01/09/22 14:59 Gram Stain - Preliminary Shoulder - Right Tissue Culture - Preliminary 01/09/22 05:30 Blood Culture Gram Stain - Final Blood Blood Culture - Final Methicillin resist S. aureus Assessment and Plan (1) Joint infection Current Visit: Yes Status: Acute Code(s): M00.9 - PYOGENIC ARTHRITIS, UNSPECIFIED SNOMED Code(s): 456969593 (2) Positive blood culture Current Visit: Yes Status: Acute Code(s): R78.81 - BACTEREMIA SNOMED Code(s): 349835671 (3) Acromioclavicular joint arthritis Current Visit: No Status: Acute Code(s): M19.019 - PRIMARY OSTEOARTHRITIS, UNSPECIFIED SHOULDER SNOMED Code(s): 037973379 (4) Right shoulder pain Current Visit: No Status: Acute Code(s): M25.511 - PAIN IN RIGHT SHOULDER SNOMED Code(s): 48764928 Plan: 1. Continue routine postoperative care and pain control. 2. Wound care and IV antibiotics per infectious disease. 3. Appreciate input from internal medicine. 4. Patient is awaiting PICC line placement. Anticipate discharge in the next 24-48 hours.
[2022-01-13] MEDS ORDERED: LIDOCAINE 1% INJ 10MG/ML (20 ML MDV) ONE (13:37)
[2022-01-13] MEDS ORDERED: LIDOCAINE 1% INJ 10MG/ML (20 ML MDV) SQ ONE (13:57)
--- NOTE | 2022-01-13 14:24 | IR ---
PICC LINE PLACEMENT: HISTORY: Infection requiring long-term antibiotic therapy PROCEDURE: Ultrasound and fluoroscopic guidance of PICC line placement. COMPLICATIONS: None ANESTHESIA: 1. 1% Lidocaine locally. FINDINGS/TECHNIQUE: The procedure was explained to the patient. The risks, complications, benefits and alternatives were discussed and any questions were answered. Informed consent was obtained. The patient was placed supine on the fluoroscopic table and prepped and draped in the usual sterile fash ion. Utilizing a 21 gauge needle and sonographic and fluoroscopic guidance, access in the left basi lic vein was achieved and there is placement of a 0.018 guidewire. The vein is patent. A 4-F sheath was placed over the guidewire. The guidewire and dilator were removed and a 4-F. PICC line was plac ed through the sheath with the tip at the level of the SVC. The sheath was removed, the catheter was flushed and sutured into position. The patient was stable throughout the procedure and remained sta ble upon discharge from the Department of Radiology. The vein puncture was patent under ultrasound. A melvin scale image was obtained to document patency of the vein punctured. All elements of the maximal barrier technique were utilized. FLUOROSCOPY TIME: 0.1 minutes and one image IMPRESSION: Successful PICC line placement under ultrasound and fluoroscopic guidance.
[2022-01-13] MEDS: SODIUM CHLORIDE 0.9% 1,000 ML IV SCH (15:50)
[2022-01-13 16:41] LABS: Glucose,Whole Blood 108 mg/dL (75-99)
[2022-01-13] MEDS: ONDANSETRON ODT 4 MG TAB PO PRN (18:02)
[2022-01-13 20:49] LABS: Glucose,Whole Blood 164 mg/dL (75-99)
--- NOTE | 2022-01-13 21:32 | P.PN ---
Subjective Progress Note Date: 01/13/22 Principal diagnosis: MRSA bacteremia and right shoulder septic arthritis Patient is a 56 year female presenting to the hospital with intractable pain to the right shoulder area in this patient who did have a MRSA bacteremia concerning for right shoulder septic arthritis. Patient is status post washout of the right shoulder on 01/08/2022 with a repeat procedure 2021 On today's evaluation that is 01/13/2022, the patient denies any fever or any chills, the patient pain to the right shoulder is currently controlled, patient denies chest pain or shortness of cough no nausea no vomiting no abdominal pain no diarrhea, patient is still concerned about her elevated blood pressure Objective - Vital Signs Vital signs: Vital Signs Temp 97.9 F 01/13/22 06:51 Pulse 85 01/13/22 11:47 Resp 16 01/13/22 06:51 BP 161/75 01/13/22 11:47 Pulse Ox 96 01/13/22 06:51 Intake & Output 01/12/22 01/13/22 01/13/22 18:59 06:59 18:59 Intake Total 180 Balance 180 Weight 77.111 kg Intake: Oral 180 Other: Voiding Method Toilet Toilet Toilet - Exam GENERAL DESCRIPTION: Middle-age female lying in bed in no distress RESPIRATORY SYSTEM: Unlabored breathing , decreased breath sounds at bases HEART: S1 S2 regular rate and rhythm , ABDOMEN: Soft , no tenderness EXTREMITIES: Right shoulder did have a deeper wound wound base is clean some surrounding redness no drainage - Labs CBC & Chem 7: 01/11/22 08:57 01/12/22 04:07 Labs: Abnormal Lab Results - Last 24 Hours (Table) 01/12/22 01/12/22 01/13/22 Range/Units 16:45 20:42 06:40 ESR (0-20) mm/hr POC Glucose (mg/dL) 177 H 124 H (75-99) mg/dL C-Reactive Protein 3.7 H (<1.0) mg/dL 01/13/22 01/13/22 01/13/22 Range/Units 06:52 07:45 11:37 ESR 84 H (0-20) mm/hr POC Glucose (mg/dL) 107 H 125 H (75-99) mg/dL C-Reactive Protein (<1.0) mg/dL Microbiology - Last 24 Hours (Table) 01/11/22 08:57 Blood Culture - Preliminary Blood No Growth after 48 hours 01/10/22 06:55 Blood Culture - Preliminary Blood No Growth after 72 hours 01/09/22 14:59 Gram Stain - Preliminary Shoulder - Right Tissue Culture - Preliminary 01/09/22 05:30 Blood Culture Gram Stain - Final Blood Blood Culture - Final Methicillin resist S. aureus Assessment and Plan (1) Joint infection Current Visit: Yes Status: Acute Code(s): M00.9 - PYOGENIC ARTHRITIS, UNSPECIFIED SNOMED Code(s): 360883935 Plan: 1patient presented to hospital with acute pain to the right shoulder area with no history of any trauma in this patient who did have abdominal MRI and now with evidence of gram-positive bacteremia high clinical suspicious for right shoulder septic arthritis. 2blood cultures from 01/10/2022 are so far negative including remains to be negative at 72 hours she will be able to get a PICC line 3 patient is status post washout of the right shoulder per orthopedics and deep cultures on 01/08/2022 with a repeat washout on 01/09/2022 4 local wound care with Aquacel silver packing of the wound and changed every 48 hour 5-patient vancomycin level has been low and elevated did discussed in detail with the pharmacy today they are waiting for repeat trough tomorrow morning and if the patient has received therapeutic level may be able to go home on IV vancomycin otherwise we'll opt for daptomycin this has been discussed in detail with the case assistant nurse practitioner for admitting team as well as the family Time with Patient: Less than 30
[2022-01-13] MEDS: MELATONIN 3 MG TABLET PO SCH (21:46)
[2022-01-13] MEDS: FLUTICASONE 50MCG/SPRAY NASAL 16GM EA NOSTRIL SCH (21:48)
[2022-01-14 02:54] VITALS: PULSE 85; RESP 16
[2022-01-14] MEDS: oxyCODONE-APAP 5-325MG 1 EACH TAB PO PRN ×3 (04:32→14:45)
[2022-01-14] MEDS: CLOTRIMAZOLE TROCHE 10 MG TROCHE MUCOUS MEM SCH ×3 (04:33→15:39)
[2022-01-14 07:02] LABS: Glucose,Whole Blood 113 mg/dL (75-99)
[2022-01-14 07:06] VITALS: BP 153/70; TEMP 98.3
[2022-01-14] MEDS: INSULIN ASPART (NovoLOG) 100 UNIT/ML VIAL SQ SCH ×2 (07:37→12:02)
[2022-01-14] MEDS ORDERED: VANCOMYCIN TROUGH DUE 1 EACH MISC MISCELLANE ONE (08:00)
[2022-01-14 08:30] LABS: African American GFR (CKD) >90 (>60 ml/min/1.73 sqM); Anion Gap 9 mmol/L; Blood Urea Nitrogen 7 mg/dL (7-17); Calcium 8.8 mg/dL (8.4-10.2); Carbon Dioxide 28 mmol/L (22-30); Chloride 100 mmol/L (98-107); Glucose 200 mg/dL (74-99); Non-African American GFR(CKD) >90 (>60 ml/min/1.73 sqM); Potassium 4.4 mmol/L (3.5-5.1); Sodium 137 mmol/L (137-145)
[2022-01-14] MEDS: SYMBICORT 160-4.5 MCG INHALER INHALATION SCH (08:34)
[2022-01-14] MEDS: rifAMPin 300 MG CAP PO SCH (09:58)
[2022-01-14] MEDS: GABAPENTIN 300 MG CAP PO SCH (09:58)
[2022-01-14] MEDS: LOSARTAN 50 MG TAB PO SCH (09:58)
[2022-01-14] MEDS: amLODIPine 5 MG TAB PO SCH (09:58)
[2022-01-14] MEDS: DOCUSATE 100 MG CAP PO SCH (09:58)
[2022-01-14] MEDS: PANTOPRAZOLE 40 MG TABLET PO SCH (09:59)
[2022-01-14] MEDS: ASPIRIN 81 MG PO SCH (09:59)
[2022-01-14] MEDS: ENOXAPARIN 40 MG/0.4 ML SYRINGE SQ SCH (10:04)
--- NOTE | 2022-01-14 10:18 | P.DS ---
Providers Date of admission: 01/05/22 14:01 Expected date of discharge: 01/14/22 Attending physician: Ismael Lilly Consults: 01/05/22 14:12 Consult Physician Routine Consulting Provider: Carrillo Lott Consult Reason/Comments: AC joint sepsis right shoulder Do you want consulting provider notified?: Yes 01/05/22 14:16 Consult Physician Routine Consulting Provider: Lesley Becker Consult Reason/Comments: Medical management Do you want consulting provider notified?: Yes Primary care physician: Lesley Eugenio - Discharge Diagnosis(es) (1) Joint infection Current Visit: Yes Status: Acute (2) Acromioclavicular joint arthritis Current Visit: No Status: Acute (3) Right shoulder pain Current Visit: No Status: Acute Hospital Course: This is a 56-year-old female who was last seen in our office 01/02/2022 with severe right shoulder pain. She had history of a deep tissue massage the day prior and soon developed severe right shoulder and arm pain. She's had no recent fevers or chills. No numbness or tingling down the arm. She describes the pain as constant and begins about the top of the shoulder and radiates posteriorly and anteriorly as well as down the inner arm. She has had minimal relief of her pain since been prescribed Prednisone, [place] and baclofen. She presented to the emergency department yesterday with continued pain. The patient denies history of gout but states her Father had severe gout. CT scan was performed in the emergency department on 01/04/2022 which showed no evidence of glenohumeral joint effusion. There is some fluid in the acromioclavicular joint. There is also diffuse soft tissue swelling in the shoulder. She was evaluated in the emergency department by Dr. Brar and myself and her acromioclavicular joint was aspirated. I obtained approximately 0.5 mL of bloody joint fluid which was sent for culture. The patient was sent home on strong pain medication per the emergency department with instruction to continue the prednisone and baclofen as well. She was admitted to the hospital on 01/05/2022 an MRI was performed which showed evidence of septic arthritis of the acromioclavicular joint and subacromial space. No fluid in the glenohumeral joint. She was taken to surgery for irrigation and debridement of the shoulder 2. Cultures obtained revealed MRSA. The patient was also found to have MRSA bacteremia. The patient's pain is improving. PICC line is in place. The patient may be discharged to home today with home care referral for IV antibiotics and wound care. Please see med rec for accurate list of home medications. Patient Condition at Discharge: Stable Plan - Discharge Summary Discharge Rx Participant: No New Discharge Prescriptions: New Magnesium Hydroxide [Milk of Magnesia Concentrate] 2,400 mg PO DAILY PRN ml PRN Reason: Constipation Clotrimazole Wilfred [Mycelex Wilfred] 10 mg MUCOUS MEM 5XD #20 wilfred Gabapentin [Neurontin] 300 mg PO BID 5 Days #20 cap oxyCODONE HCL/ACETAMINOPHEN [Percocet 5-325 mg] 1 tab PO Q4HR PRN 3 Days #18 tab PRN Reason: Pain Sennosides-Docusate Sodium [Senokot-S] 1 tab PO BID #60 tablet Docusate [Colace] 100 mg PO BID cap Losartan [Cozaar] 100 mg PO DAILY #60 tab Fluticasone Nasal [place] [Flonase Nasal [place]] 2 spray EA NOSTRIL HS gm amLODIPine [Norvasc] 5 mg PO DAILY #30 tab Meloxicam [Mobic] 1 - 2 tab PO DAILY PRN #30 tab PRN Reason: Pain Ondansetron Odt [Zofran Odt] 4 mg PO Q8HR PRN #14 tab PRN Reason: Nausea HYDROcodone/APAP 10-325MG [[place] 10-325] 1 tab PO Q6HR PRN #28 tab PRN Reason: Pain Continue oxyCODONE HCL/ACETAMINOPHEN [Percocet 5-325 mg] 1 tab PO Q6HR PRN 3 Days #12 tab PRN Reason: Pain Gabapentin [Neurontin] 300 mg PO BID #14 cap Ondansetron Odt [Zofran ODT] 4 mg PO Q6H PRN PRN Reason: Nausea Baclofen 10 mg PO TID PRN PRN Reason: Muscle Pain Albuterol Inhaler [Ventolin Hfa Inhaler] 2 puff INHALATION RT-Q4H PRN PRN Reason: Shortness Of Breath Discontinued clindamycin HCL [Cleocin] 300 mg PO Q8H predniSONE [Deltasone] See Taper PO DIRECTED Discharge Medication List Gabapentin [Neurontin] 300 mg PO BID #14 cap 01/04/22 [Rx] oxyCODONE HCL/ACETAMINOPHEN [Percocet 5-325 mg] 1 tab PO Q6HR PRN 3 Days #12 tab 01/04/22 [Rx] Albuterol Inhaler [Ventolin Hfa Inhaler] 2 puff INHALATION RT-Q4H PRN 01/05/22 [History] Baclofen 10 mg PO TID PRN 01/05/22 [History] Ondansetron Odt [Zofran ODT] 4 mg PO Q6H PRN 01/05/22 [History] Clotrimazole Wilfred [Mycelex Wilfred] 10 mg MUCOUS MEM 5XD #20 wilfred 01/13/22 [Rx] Docusate [Colace] 100 mg PO BID cap 01/13/22 [Rx] Fluticasone Nasal [place] [Flonase Nasal [place]] 2 spray EA NOSTRIL HS gm 01/13/22 [Rx] Losartan [Cozaar] 100 mg PO DAILY #60 tab 01/13/22 [Rx] Magnesium Hydroxide [Milk of Magnesia Concentrate] 2,400 mg PO DAILY PRN ml 01/13/22 [Rx] amLODIPine [Norvasc] 5 mg PO DAILY #30 tab 01/13/22 [Rx] Gabapentin [Neurontin] 300 mg PO BID 5 Days #20 cap 01/14/22 [Rx] HYDROcodone/APAP 10-325MG [[place] 10-325] 1 tab PO Q6HR PRN #28 tab 01/14/22 [Rx] Meloxicam [Mobic] 1 - 2 tab PO DAILY PRN #30 tab 01/14/22 [Rx] Ondansetron Odt [Zofran Odt] 4 mg PO Q8HR PRN #14 tab 01/14/22 [Rx] Sennosides-Docusate Sodium [Senokot-S] 1 tab PO BID #60 tablet 01/14/22 [Rx] oxyCODONE HCL/ACETAMINOPHEN [Percocet 5-325 mg] 1 tab PO Q4HR PRN 3 Days #18 tab 01/14/22 [Rx] Follow up Appointment(s)/Referral(s): Lesley Becker MD [Primary Care Provider] - 1 Week [facility]fusion [NON-STAFF] - As Needed Ismael Lilly MD [STAFF PHYSICIAN] - 10 Days [facility] Visiting Nurse, [NON-STAFF] - As Needed Activity/Diet/Wound Care/Special Instructions: Wound care and antibiotics per ID, Homecare referral. May perform gentle ROM exercises to the shoulder. Discharge Disposition: HOME WITH HOME HEALTH SERVICES
--- NOTE | 2022-01-14 10:21 | P.PN ---
Subjective Progress Note Date: 01/14/22 HISTORY OF PRESENT ILLNESS 56-year-old female one of our office patient with past medical history of GERD and mildly elevated blood pressure apparently has been doing well the blood to have significant neck pain and shoulder pain ended up going for deep tissue massage this past week on Wednesday or developed to have severe right shoulder and arm pain could not sleep the night ended up seen Dr. Whelan [facility]22 were patient exam was consistent with severe skeletal muscular pain she was prescribed steroid along with muscle relaxer and medication for pain. Patient presented to the emergency department yesterday with severe intractable pain, CT at the ER shows no evidence of joint effusion at the time but had some fluid in the acromioclavicular joint with significant soft tissue swelling of the time. She ended up seen Dr. Brar in the emergency room joint aspiration was done and sent for culture patient was to continue medication. An MRI was schedule for patient as an outpatient but surprisingly the culture came back positive for gram-positivei patient [facility] was having no fever or chills at the time decided to have patient hospitalized due to MRI urgent and start patient on IV antibiotics right away. 01/06: Patient continues to have significant pain in her right shoulder also complains of pain in her neck and jaw, her has related that she had been scratching the base of her neck and base of the skull quite a bit over the past couple weeks. 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 Patient has been seen by orthopedics and scheduled for I&D of the right shoulder before meals joint for tomorrow. Patient has been afebrile, heart rate 83, blood pressure 162/79, pulse ox 96% on room air. Repeat blood work reveals normal CBC. Sodium 135, chloride 97, creatinine 0.65. AST 61 and ALT 140. Capillary blood glucose 154. Blood cultures are positive for Staphylococcus aureus. Repeat sed rate and CRP ordered. Also hemoglobin A1c ordered. Patient has no history of diabetes. MRI of the right shoulder revealed shoulder joint effusion. Subdeltoid effusion. Fluid accumulation in the subcutaneous tissues as well as around the supra splenitis and infraspinatus muscle consistent with infectious or inflammatory process. No discrete abscess. No evidence of full-thickness rotator cuff tear. Moderate fluid accumulation seen in the before meals joint that could relate to septic arthritis. Abdominal ultrasound revealed nonspecific pattern to the liver can be seen with hepatic steatosis, diffuse hepatocellular disease including hepatitis. Correlate with renal function studies to assess for chronic medical renal disease. No hydronephrosis or nephrolithiasis. 01/07: Patient is complaining of significant headache to the frontal area as well as the occipital region. An MRI of the brain will be ordered. Discussed results of ultrasound finding fatty liver with recommendations for weight loss. Sinus CAT scan was negative. She is scheduled today for I&D of the right shoulder. Patient is continued on vancomycin. Patient remains afebrile. Hepatitis panel was negative. Lipase 69. MRI of the brain reveals mild nonspecific white matter changes may be on the basis of altered vascular mechanics related to proximal migraine headaches. Non-visualization of portions of the basilar artery could reflect significant stenosis and/or areas of occlusion. Advised CTA or MRA of the brain and [place] of [place] follow-up to further evaluate. 01/08: Yesterday, patient underwent right shoulder before meals joint incision and drainage irrigation and sharp excisional debridement of ligament tissue and fibrous tissue within the before meals joint. Open irrigation of subacromial with Hemovac drain placement. Deep cultures from subacromial space and before m eals joint, tissue biopsy before meals joint were obtained. Patient states that her pain in her right shoulder is significantly improved but she did have a block done yesterday. She states the pain is now a dull ache. She states that she had an episode last evening with chest pain and cold sweats and EKG showed no acute findings. Blood sugar was also up to 219 last evening. A1c came back at 6.1. Repeat blood cultures to be obtained today but previous were positive for MRSA. Wound culture presumptive MRSA. Patient has been continued on vancomycin. She is scheduled for a second debridement of the right shoulder tomorrow. 01/09: Patient states that pain is returned and was severe similar to the pain that brought her into the hospital and started at 5 PM last night. She was able to sleep last night but woke up at 4 with severe pain. Patient is scheduled for second I&D today with Dr. Lilly.she denies having any fever or chills. She has been afebrile, heart rate 80s, blood pressure 164/78 and losartan will be adjusted and increased to 75 mg twice daily. Pulse ox is 93% on room air. 01/10: patient is found sitting up in a chair. Shoulder and was mobilized. Patient did have a I&D with washout yesterday. patient had an episode of shortness of breath and coughing last night. She does have some edema to the right upper extremity. It isn't mobile. We will order a chest x-ray, right upper extremity arterial Doppler due to the shortness of breath. Patient also has yeast noted to her mucous membrane. Patient states that the pain is manageable. echocardiogram to rule out vegetation. patient remains afebrile, heart rate 79, respirations 18, blood pressure elevated at 182/102. creatinine 0.58. 01/11: Right upper extremity Doppler showed positive superficial phlebitis. Joshua salmon denies any chest pain or shortness of breath with activity. Denies cough. No nausea or vomiting. Patient was started on aspirin 81 mg twice a day. Recommendations for range of motion from or so. Patient continues to have elevated blood pressures greater than 200. Patient was given hydralazine as needed. We will start patient on lisinopril HTZ. Echo cardiogram results noted below. Patient remains afebrile, heart rate 80, blood pressure 184/70, respirations 16, pulse ox 96% on room air. Potassium 3.9, B UN 7 creatinine 0.58 01/12: Patient is having improved right shoulder pain status post right interscalene nerve block 01/11. Her blood pressure remains elevated and changes are being made. She is waiting for blood culture was no growth after 72 hours, currently at 24 hours, before PICC line can be placed. Anticipate possible discharge on Wednesday. Echocardiogram reveals no vegetation, left ventricle size normal, EF 60-65%, no pericardial effusion. 01/13: The patient states the pain to her right shoulder is improved today. Blood culture from 01/10 is no growth at 72 hours. PICC line ordered. Medication reconciliation has been reviewed for discharge. Anticipate possible discharge home today once arrangements are completed. java technical manager updated. Patient is complaining of constipation, Colace changed to scheduled twice daily and milk of magnesia recommended prune juice as well. 01/14: Patient's pain to the right shoulder is improved. She has been afebrile, heart rate 85, blood pressure 153/70, pulse ox 95% on room air. BMP within normal limits except for blood sugar of 200. Blood sugar elevation thought to be related to stress and also Decadron during surgery and use of prednisone prior to admission. Patient had PICC line inserted in the left arm. Anticipate that Dr. Lott will finalize dosing on vancomycin for today. java technical manager has made arrangements for [facility] and working with [facility] to finalize antibiotics. Medication reconciliation has been reviewed for discharge. Patient's blood pressure appears to be improved with current medications and prescriptions have been sent to her pharmacy. REVIEW OF SYSTEMS Constitutional: No fever, no chills, no night sweats. No weight change. No weakness, fatigue or lethargy. No daytime sleepiness. EENT: No headache. No blurred vision or double vision, no loss of vision. No loss of Hearing, no ringing in the ears, no dizziness. No nasal drainage or congestion. No epistaxis. No sore throat. Lungs: No shortness of breath, cough, no sputum production. No wheezing. Cardiovascular: No chest pain, no lower extremity edema. No palpitations. No paroxysmal nocturnal dyspnea. No orthopnea. No lightheadedness or dizziness. No syncopal episodes. Abdominal: No abdominal pain. No nausea, vomiting. No diarrhea. No constipation. No bloody or tarry stools.. No loss of appetite. Genitourinary: No dysuria, increased frequency, urgency. No urinary retention. Musculoskeletal: Right shoulder restriction to motion with neck pain as well., no gait dysfunction, no frequent falls. No back pain. Reports improvement of right shoulder pain. Integumentary: No wounds, no lesions. No rash or pruritus. No unusual bruising. No change in hair or nails. Neurologic: No aphasia. No facial droop. No change in mentation. No head injury. No headache. No paralysis. No paresthesia. Psychiatric: No depression. No anxiety. No mood swings. Endocrine: Noted abnormal blood sugars. No weight change. PHYSICAL EXAMINATION Gen: This is a well-developed 56-year-old female, resting in bed, no acute respiratory distress. HEENT: Head is atraumatic, normocephalic. Pupils equal, round. Sclerae is anicteric. NECK: Supple. No JVD. No lymphadenopathy. No thyromegaly. LUNGS: Clear to auscultation. No wheezes or rhonchi. No intercostal ret ractions. HEART: Regular rate and rhythm. No murmur. ABDOMEN: Soft. Bowel sounds are present. No masses. No tenderness. EXTREMITIES: No calf tenderness. Right shoulder has large dressing in place. Trace pedal edema to bilateral lower extremities NEUROLOGICAL: Patient is awake, alert and oriented x3. Cranial nerves 2 through 12 are grossly intact. ASSESSMENT AND PLAN 1. Acute infected right AC joint with MRSA bacteremia status post I&D on 01/07, repeat performed on 01/09. Continue patient on vancomycin, pharmacy dosing, Dr. Lott added rifampin. PICC line has been inserted. 2 intractable pain and discomfort in the right shoulder area: Probably could be explained by the infectious site at this point we'll continue pain management. Continue Percocet. Dilaudid discontinued. 3 abnormal liver function test secondary to fatty liver. Patient advised for weight loss. 4 hyperglycemia most likely secondary to stress response and also to steroids. Continue with sliding scale coverage and be done patient has not been diabetic. A1C 6.1 5 hypertension. Continue patient on losartan 100 mg daily and added amlodipine 5 mg daily and hydralazine 25 mg 4 times daily as needed. Prescriptions of been sent to her pharmacy. 6 frontal and occipital headache. MRI of the brain was negative for acute findings. 7. Shortness of breath. 8.candidiasis of the mouth. Clotrimazole 9 GERD/GI prophylaxis: Patient will be on Pepcid. 10. Superficial phlebitis right upper extremity. 81 mg aspirin twice a day. Awaiting recommendations from or so for range of motion. 11. DVT prophylaxis. SCDs and [place]. CODE STATUS: Full code. DISCHARGE PLAN Home with [facility] and IV antibiotics Impression and plan of care have been directed as dictated by the signing physician. Ruby Candelario nurse practitioner acting as scribe for signing physician. Objective - Vital Signs Vital signs: Vital Signs Temp 98.3 F 01/14/22 07:04 Pulse 85 01/14/22 07:04 Resp 16 01/14/22 07:04 BP 153/70 01/14/22 07:04 Pulse Ox 95 01/14/22 07:04 Intake & Output 01/13/22 01/14/22 01/14/22 18:59 06:59 18:59 Intake Total 180 Balance 180 Intake: Oral 180 Other: Voiding Method Toilet Toilet # Voids 3 - Labs CBC & Chem 7: 01/11/22 08:57 01/14/22 07:50 Labs: Abnormal Lab Results - Last 24 Hours (Table) 01/13/22 01/13/22 01/13/22 Range/Units 06:40 07:45 11:37 ESR 84 H (0-20) mm/hr POC Glucose (mg/dL) 125 H (75-99) mg/dL C-Reactive Protein 3.7 H (<1.0) mg/dL 01/13/22 01/13/22 01/14/22 Range/Units 16:40 20:48 07:00 ESR (0-20) mm/hr POC Glucose (mg/dL) 108 H 164 H 113 H (75-99) mg/dL C-Reactive Protein (<1.0) mg/dL Microbiology - Last 24 Hours (Table) 01/09/22 14:59 Anaerobic Culture - Final Shoulder - Right 01/09/22 14:59 Anaerobic Culture - Preliminary Shoulder - Right 01/09/22 14:59 Anaerobic Culture - Final Shoulder - Right 01/09/22 14:59 Gram Stain - Final Shoulder - Right Tissue Culture - Final 01/11/22 08:57 Blood Culture - Preliminary Blood No Growth after 48 hours 01/10/22 06:55 Blood Culture - Preliminary Blood No Growth after 72 hours
[2022-01-14] MEDS: ONDANSETRON ODT 4 MG TAB PO PRN (11:09)
[2022-01-14] MEDS: VANCOMYCIN 1,750 MG in SODIUM CHLORIDE 0.9% 500 ML 500 ML IVPB SCH (11:09)
[2022-01-14 11:31] LABS: Glucose,Whole Blood 147 mg/dL (75-99)
[2022-01-14] MEDS: SODIUM CHLORIDE 0.9% 1,000 ML IV SCH (12:02)
[2022-01-14] MEDS ORDERED: DAPTOmycin 350 MG in SODIUM CHLORIDE 0.9% 50 ML IVPB SCH (14:30)
--- NOTE | 2022-01-16 17:35 | P.PN ---
Subjective Progress Note Date: 01/14/22 Principal diagnosis: MRSA bacteremia and right shoulder septic arthritis Patient is a 56 year female presenting to the hospital with intractable pain to the right shoulder area in this patient who did have a MRSA bacteremia concerning for right shoulder septic arthritis. Patient is status post washout of the right shoulder on 01/08/2022 with a repeat procedure 2021 On today's evaluation that is 01/14/2022, the patient remains to be afebrile, the patient denies any worsening pain to the right shoulder, patient denies chest pain or shortness of cough no nausea no vomiting no abdominal pain no diarrhea, Objective - Vital Signs Vital signs: Vital Signs Temp 98.3 F 01/14/22 07:04 Pulse 85 01/14/22 07:04 Resp 16 01/14/22 07:04 BP 153/70 01/14/22 07:04 Pulse Ox 95 01/14/22 07:04 Intake & Output 01/13/22 01/14/22 01/14/22 18:59 06:59 18:59 Intake Total 180 Balance 180 Intake: Oral 180 Other: Voiding Method Toilet Toilet Toilet # Voids 3 - Exam GENERAL DESCRIPTION: Middle-age female lying in bed in no distress RESPIRATORY SYSTEM: Unlabored breathing , decreased breath sounds at bases HEART: S1 S2 regular rate and rhythm , ABDOMEN: Soft , no tenderness EXTREMITIES: Right shoulder did have a deeper wound wound base is clean some surrounding redness no drainage - Labs CBC & Chem 7: 01/11/22 08:57 01/14/22 07:50 Labs: Abnormal Lab Results - Last 24 Hours (Table) 01/13/22 01/13/22 01/13/22 Range/Units 11:37 16:40 20:48 Glucose (74-99) mg/dL POC Glucose (mg/dL) 125 H 108 H 164 H (75-99) mg/dL 01/14/22 01/14/22 Range/Units 07:00 07:50 Glucose 200 H (74-99) mg/dL POC Glucose (mg/dL) 113 H (75-99) mg/dL Microbiology - Last 24 Hours (Table) 01/11/22 08:57 Blood Culture - Preliminary Blood No Growth after 72 hours 01/10/22 06:55 Blood Culture - Preliminary Blood No Growth after 96 hours 01/09/22 14:59 Anaerobic Culture - Final Shoulder - Right 01/09/22 14:59 Anaerobic Culture - Preliminary Shoulder - Right 01/09/22 14:59 Anaerobic Culture - Final Shoulder - Right 01/09/22 14:59 Gram Stain - Final Shoulder - Right Tissue Culture - Final Assessment and Plan (1) Joint infection Status: Acute Code(s): M00.9 - PYOGENIC ARTHRITIS, UNSPECIFIED SNOMED Code(s): 344836686 Plan: 1patient presented to hospital with acute pain to the right shoulder area with no history of any trauma in this patient who did have abdominal MRI and now with evidence of gram-positive bacteremia high clinical suspicious for right shoulder septic arthritis. 2blood cultures from 01/10/2022 are so far negative including remains to be negative at 72 hours she will be able to get a PICC line 3 patient is status post washout of the right shoulder per orthopedics and deep cultures on 01/08/2022 with a repeat washout on 01/09/2022 4 local wound care with Aquacel silver packing of the wound and changed every 48 hour 5-patient vancomycin level has been therapeutic after adjustment of the dose by the pharmacy this morning with a trough of 17.5 plan is to continue with IV van comycin for 4 weeks with weekly monitoring of blood work and close outpatient follow-up Time with Patient: Less than 30
== END 2022-01-14 16:47 | disposition home health service (06) | DRG 501 ==
LOC: EC 13:34 → 4SSUR 14:01
PROVIDERS: ADMIT Orthopaedic Surgery; ATTEND Orthopaedic Surgery
PROC: 0RB Upper Joints, Excision (ICD-10-PCS; principal; 2022-01-08)
PROC: 0XP Anatomical Regions, Upper Extremities, Removal (ICD-10-PCS; 2022-01-09)
PROC: 0MD10ZZ Extraction of Right Shoulder Bursa and Ligament, Open Approach (ICD-10-PCS; 2022-01-09)
PROC: 0R9J3ZX Drainage of Right Shoulder Joint, Percutaneous Approach, Diagnostic (ICD-10-PCS; 2022-01-09)
PROC: 02HV33Z Insertion of Infusion Device into Superior Vena Cava, Percutaneous Approach (ICD-10-PCS; 2022-01-13)
DX: M00.011 Staphylococcal arthritis, right shoulder (principal); B37.0 Candidal stomatitis; R78.81 Bacteremia; B95.62 Methicillin resistant Staphylococcus aureus infection as the cause of diseases classified elsewhere; I80.8 Phlebitis and thrombophlebitis of other sites; I10 Essential (primary) hypertension; K76.0 Fatty (change of) liver, not elsewhere classified; K21.9 Gastro-esophageal reflux disease without esophagitis; M71.111 Other infective bursitis, right shoulder; M19.011 Primary osteoarthritis, right shoulder; M54.2 Cervicalgia; M54.30 Sciatica, unspecified side; Z98.890 Other specified postprocedural states; Z87.440 Personal history of urinary (tract) infections; Z87.01 Personal history of pneumonia (recurrent); Z79.899 Other long term (current) drug therapy; Z82.0 Family history of epilepsy and other diseases of the nervous system; Z82.3 Family history of stroke; Z82.49 Family history of ischemic heart disease and other diseases of the circulatory system; Z90.710 Acquired absence of both cervix and uterus; Z79.52 Long term (current) use of systemic steroids
CPT/HCPCS: 36415; 36573; 64415; 70486; 70553; 71045; 76700; 76942; 80048; 80053; 80074; 80202; 81003; 82248; 82565; 83036; 83690; 85025; 85027; 85652; 86140; 87040; 87070; 87075; 87077; 87186; 87205; 88304; 93005; 93306; 94640; 96365; 96375; 99285

== ENCOUNTER 2022-02-09 10:51 | Inpatient (IN) | payer BC ==
[2022-02-09] MEDS ORDERED: IBUPROFEN 600 MG TAB PO STA (11:43)
[2022-02-09] MEDS ORDERED: ACETAMINOPHEN TAB 500 MG TAB PO STA (11:43)
[2022-02-09] MEDS ORDERED: SODIUM CHLORIDE 0.9% 2,000 ML IV ONE (11:44)
[2022-02-09 12:50] LABS: ALT 51 U/L (4-34); AST 61 U/L (14-36); African American GFR (CKD) >90 (>60 ml/min/1.73 sqM); Albumin 4.2 g/dL (3.5-5.0); Alkaline Phosphatase 99 U/L (38-126); Anion Gap 10 mmol/L; Blood Urea Nitrogen 15 mg/dL (7-17); Calcium 9.2 mg/dL (8.4-10.2); Carbon Dioxide 21 mmol/L (22-30); Chloride 100 mmol/L (98-107); Glucose 124 mg/dL (74-99); Non-African American GFR(CKD) >90 (>60 ml/min/1.73 sqM); Sodium 131 mmol/L (137-145); Total Bilirubin 0.9 mg/dL (0.2-1.3); Total Protein 7.5 g/dL (6.3-8.2)
[2022-02-09 12:58] LABS: Basophils % (A) 1 %; Eosinophils # (A) 0.1 k/uL (0-0.7); Eosinophils % (A) 1 %; HCT 40.7 % (34.0-46.0); HGB 13.3 gm/dL (11.4-16.0); Lymphocytes # (A) 0.7 k/uL (1.0-4.8); Lymphocytes % (A) 9 %; MCH 29.8 pg (25.0-35.0); MCHC 32.7 g/dL (31.0-37.0); MCV 91.2 fL (80.0-100.0); Mean Platelet Volume 7.6; Monocytes # (A) 0.2 k/uL (0-1.0); Monocytes % (A) 2 %; Neutrophils # (A) 6.8 k/uL (1.3-7.7); Neutrophils % (A) 86 %; Platelet Count 161 k/uL (150-450); RBC 4.46 m/uL (3.80-5.40); RDW 13.8 % (11.5-15.5); WBC 7.9 k/uL (3.8-10.6)
[2022-02-09 13:04] LABS: Potassium 4.3 mmol/L (3.5-5.1)
--- NOTE | 2022-02-09 13:05 | XR ---
EXAMINATION TYPE: XR chest 2V DATE OF EXAM: 02/09/2022 COMPARISON: Chest x-ray from 06/23/2022 HISTORY: Fever and shakiness. TECHNIQUE: Frontal and lateral views of the chest are obtained. FINDINGS: There is new left-sided PICC line terminating in SVC. There is no new suspicious focal air space opacity, pleural effusion, or pneumothorax seen. The cardiac silhouette size is stable and wi thin normal limits. The osseous structures are intact. IMPRESSION: No new acute pulmonary process.
[2022-02-09 13:42] LABS: Appearance,Urine Clear (Clear); Bilirubin,Urine Negative (Negative); Blood,Urine Negative (Negative); Color,Urine Yellow; Glucose,Urine (UA) Negative (Negative); Ketones,Urine Negative (Negative); Leukocyte Esterase,Urine Negative (Negative); Nitrite,Urine Negative (Negative); Protein,Urine Negative (Negative); Specific Gravity,Urine 1.007 (1.001-1.035); Urobilinogen,Urine <2.0 mg/dL (<2.0)
--- NOTE | 2022-02-09 13:48 | ED ---
General Adult HPI - General Chief complaint: Recheck/Abnormal Lab/Rx Stated complaint: poss seizure, vomiting, SOB Time Seen by Provider: 02/09/22 11:29 Source: patient, RN notes reviewed Mode of arrival: ambulatory Limitations: no limitations - History of Present Illness Initial comments: 56-year-old female presents emergency Department with chief complaint of possible medication reaction, fever. Patient states that she was admitted for right shoulder infection states that she's had a cleaned out twice was on vancomycin while she was in the hospital discharge and drink mycin until she had CT doesn't syndrome. Patient was then switched to daptomycin. Patient states she feels exactly similar she does not have the rash. She states she's been alexis ving shaking chills, mild laryngitis type symptoms. Patient was found have a fever today in which she is not taking any recent, Motrin. Patient states she overall does not feel well she was evaluated by her home care nurse today who states her wound is healing well and that's he has no worsening symptoms from the wound. Patient does have a PICC line left arm. - Related Data Home Medications Medication Instructions Recorded Confirmed Albuterol Inhaler [Ventolin Hfa 2 puff INHALATION RT-Q4H PRN 01/05/22 01/05/22 Inhaler] Baclofen 10 mg PO TID PRN 01/05/22 01/05/22 Ondansetron Odt [Zofran ODT] 4 mg PO Q6H PRN 01/05/22 01/05/22 Previous Rx's Medication Instructions Recorded Gabapentin [Neurontin] 300 mg PO BID #14 cap 01/04/22 oxyCODONE HCL/ACETAMINOPHEN 1 tab PO Q6HR PRN 3 Days #12 tab 01/04/22 [Percocet 5-325 mg] Docusate [Colace] 100 mg PO BID cap 01/13/22 Fluticasone Nasal [place] [Flonase 2 spray EA NOSTRIL HS gm 01/13/22 Nasal [place]] Magnesium Hydroxide [Milk of 2,400 mg PO DAILY PRN ml 01/13/22 Magnesia Concentrate] Clotrimazole [place] [Mycelex 10 mg MUCOUS MEM 5XD #20 kyler 01/14/22 [place]] Gabapentin [Neurontin] 300 mg PO BID 5 Days #20 cap 01/14/22 HYDROcodone/APAP 10-325MG [Urania 1 tab PO Q6HR PRN #28 tab 01/14/22 10-325] Losartan [Cozaar] 100 mg PO DAILY #60 tab 01/14/22 Meloxicam [Mobic] 1 - 2 tab PO DAILY PRN #30 tab 01/14/22 Ondansetron Odt [Zofran Odt] 4 mg PO Q8HR PRN #14 tab 01/14/22 Sennosides-Docusate Sodium 1 tab PO BID #60 tablet 01/14/22 [Senokot-S] Vancomycin HCl in 5 % Dextrose 1.75 gm IV Q12HR #70 each 01/14/22 [Vancomycin 1 Gram/250 ml-D5w] amLODIPine [Norvasc] 5 mg PO DAILY #30 tab 01/14/22 oxyCODONE HCL/ACETAMINOPHEN 1 tab PO Q4HR PRN 3 Days #18 tab 01/14/22 [Percocet 5-325 mg] Allergies Allergy/AdvReac Type Severity Reaction Status Date / Time Sulfa (Sulfonamide Allergy Nausea & Verified 02/09/22 11:07 Antibiotics) Vomiting hydromorphone [From Dilaudid] AdvReac Hallucinati Verified 02/09/22 11:07 ons Review of Systems ROS Statement: Those systems with pertinent positive or pertinent negative responses have been documented in the HPI. ROS Other: All systems not noted in ROS Statement are negative. Past Medical History Past Medical History: GERD/Reflux, Pneumonia Additional Past Medical History / Comment(s): HTN with only, numbness/tingling bilateral feet toes, bronchitis, UTI, concusion, occasional sciatica, anemia. History of Any Multi-Drug Resistant Organisms: MRSA Date of last positivie culture/infection: 01/09/22 MDRO Source:: shoulder MRSA AND BLOOD Past Surgical History: Hysterectomy Additional Past Surgical History / Comment(s): EGD, D&C, bladder sling Past Anesthesia/Blood Transfusion Reactions: Postoperative Nausea & Vomiting (PONV) Past Psychological History: No Psychological Hx Reported Smoking Status: Never smoker Past Alcohol Use History: Rare - Past Family History Father Family Medical History: CVA/TIA, Musculoskeletal Disorder Additional Family Medical History / Comment(s): Gout, parkinson's disease, of a CVA Mother Family Medical History: No Reported History Additional Family Medical History / Comment(s): Mother is 92 yrs old. General Exam Limitations: no limitations General appearance: alert, in no apparent distress Head exam: Present: atraumatic, normocephalic, normal inspection Eye exam: Present: normal appearance, PERRL, EOMI. Absent: scleral icterus, conjunctival injection, periorbital swelling ENT exam: Present: normal exam, mucous membranes moist Neck exam: Present: normal inspection, full ROM. Absent: tenderness, meningismu s, lymphadenopathy Respiratory exam: Present: normal lung sounds bilaterally. Absent: respiratory distress, wheezes, rales, rhonchi, stridor Cardiovascular Exam: Present: normal rhythm, tachycardia, normal heart sounds. Absent: systolic murmur, diastolic murmur, rubs, gallop, clicks Extremities exam: Present: other (Healing wound right shoulder) Neurological exam: Present: alert, oriented X3 Course Vital Signs 02/09/22 02/09/22 02/09/22 11:03 13:30 14:44 Temperature 100.4 F H 98.6 F Pulse Rate 146 H 112 H 106 H Respiratory 18 18 16 Rate Blood Pressure 129/75 127/67 132/73 O2 Sat by Pulse 99 97 95 Oximetry Medical Decision Making - Medical Decision Making 56-year-old presented for possible medication reaction, found to be febrile. Patient of Dr. Celaya's at 3.7, no obvious source for infection she does have healing wound of her right shoulder which she has been on vancomycin and currently on daptomycin. This is been healing well with no overt signs for infe ction. She does have a PICC line in the left arm. It is concerned there may be an infection associated with her PICC line. I did discuss case with Dr. Bae, Dr. Lott patient will be evaluated for antibiotic therapy. - Lab Data Result diagrams: 02/09/22 12:15 02/09/22 12:15 Lab Results 02/09/22 02/09/22 02/09/22 Range/Units 12:15 12:15 12:15 WBC 7.9 (3.8-10.6) k/uL RBC 4.46 (3.80-5.40) m/uL Hgb 13.3 (11.4-16.0) gm/dL Hct 40.7 (34.0-46.0) % MCV 91.2 (80.0-100.0) fL MCH 29.8 (25.0-35.0) pg MCHC 32.7 (31.0-37.0) g/dL RDW 13.8 (11.5-15.5) % Plt Count 161 (150-450) k/uL MPV 7.6 Neutrophils % 86 % Lymphocytes % 9 % Monocytes % 2 % Eosinophils % 1 % Basophils % 1 % Neutrophils # 6.8 (1.3-7.7) k/uL Lymphocytes # 0.7 L (1.0-4.8) k/uL Monocytes # 0.2 (0-1.0) k/uL Eosinophils # 0.1 (0-0.7) k/uL Basophils # 0.0 (0-0.2) k/uL Sodium 131 L (137-145) mmol/L Potassium 4.3 (3.5-5.1) mmol/L Chloride 100 (98-107) mmol/L Carbon Dioxide 21 L (22-30) mmol/L Anion Gap 10 mmol/L BUN 15 (7-17) mg/dL Creatinine 0.69 (0.52-1.04) mg/dL Est GFR (CKD-EPI)AfAm >90 (>60 ml/min/1.73 sqM) Est GFR (CKD-EPI)NonAf >90 (>60 ml/min/1.73 sqM) Glucose 124 H (74-99) mg/dL Plasma Lactic Acid Rupert (0.7-2.0) mmol/L Calcium 9.2 (8.4-10.2) mg/dL Total Bilirubin 0.9 (0.2-1.3) mg/dL AST 61 H (14-36) U/L ALT 51 H (4-34) U/L Alkaline Phosphatase 99 (38-126) U/L Total Protein 7.5 (6.3-8.2) g/dL Albumin 4.2 (3.5-5.0) g/dL Urine Color Yellow Urine Appearance Clear (Clear) Urine pH 6.0 (5.0-8.0) Ur Specific [place] 1.007 (1.001-1.035) Urine Protein Negative (Negative) Urine Glucose (UA) Negative (Negative) Urine Ketones Negative (Negative) Urine Blood Negative (Negative) Urine Nitrite Negative (Negative) Urine Bilirubin Negative (Negative) Urine Urobilinogen <2.0 (<2.0) mg/dL Ur Leukocyte Esterase Negative (Negative) Coronavirus (PCR) (Not Detectd) Influenza Type A RNA (Not Detectd) Influenza Type B (PCR) (Not Detectd) 02/09/22 02/09/22 02/09/22 Range/Units 12:15 12:15 12:15 WBC (3.8-10.6) k/uL RBC (3.80-5.40) m/uL Hgb (11.4-16.0) gm/dL Hct (34.0-46.0) % MCV (80.0-100.0) fL MCH (25.0-35.0) pg MCHC (31.0-37.0) g/dL RDW (11.5-15.5) % Plt Count (150-450) k/uL MPV Neutrophils % % Lymphocytes % % Monocytes % % Eosinophils % % Basophils % % Neutrophils # (1.3-7.7) k/uL Lymphocytes # (1.0-4.8) k/uL Monocytes # (0-1.0) k/uL Eosinophils # (0-0.7) k/uL Basophils # (0-0.2) k/uL Sodium (137-145) mmol/L Potassium (3.5-5.1) mmol/L Chloride (98-107) mmol/L Carbon Dioxide (22-30) mmol/L Anion Gap mmol/L BUN (7-17) mg/dL Creatinine (0.52-1.04) mg/dL Est GFR (CKD-EPI)AfAm (>60 ml/min/1.73 sqM) Est GFR (CKD-EPI)NonAf (>60 ml/min/1.73 sqM) Glucose (74-99) mg/dL Plasma Lactic Acid Rupert 3.7 H* (0.7-2.0) mmol/L Calcium (8.4-10.2) mg/dL Total Bilirubin (0.2-1.3) mg/dL AST (14-36) U/L ALT (4-34) U/L Alkaline Phosphatase (38-126) U/L Total Protein (6.3-8.2) g/dL Albumin (3.5-5.0) g/dL Urine Color Urine Appearance (Clear) Urine pH (5.0-8.0) Ur Specific S[place] (1.001-1.035) Urine Protein (Negative) Urine Glucose (UA) (Negative) Urine Ketones (Negative) Urine Blood (Negative) Urine Nitrite (Negative) Urine Bilirubin (Negative) Urine Urobilinogen (<2.0) mg/dL Ur Leukocyte Esterase (Negative) Coronavirus (PCR) Not Detected (Not Detectd) Influenza Type A RNA Not Detected (Not Detectd) Influenza Type B (PCR) Not Detected (Not Detectd) Disposition Clinical Impression: Fever of unknown origin, Lactic acidosis Disposition: ADMITTED IP TO THIS HOSP Condition: Fair Referrals: Lesley Becker MD [Primary Care Provider] - 1-2 days Time of Disposition: 14:55
[2022-02-09] MEDS ORDERED: IBUPROFEN 400 MG TAB PO PRN (14:55)
[2022-02-09] MEDS ORDERED: NALOXONE 0.4 MG/ML 1 ML VIAL IV PRN (14:55)
[2022-02-09] MEDS ORDERED: ONDANSETRON ODT 4 MG TAB PO PRN (16:04)
[2022-02-09] MEDS ORDERED: MAGNESIUM HYDROXIDE 2,400 MG/10 ML CUP PO PRN (16:04)
[2022-02-09] MEDS ORDERED: BACLOFEN 10 MG TAB PO PRN (16:04)
[2022-02-09] MEDS ORDERED: ALBUTEROL NEBULIZED 2.5 MG/3 ML INHALATION PRN (16:04)
[2022-02-09] MEDS ORDERED: HYDROcodone/APAP 10-325MG 1 EACH TAB PO PRN (16:04)
[2022-02-09] MEDS ORDERED: CLOTRIMAZOLE TROCHE 10 MG TROCHE MUCOUS MEM SCH (20:00)
[2022-02-09] MEDS: SENNOSIDES-DOCUSATE SODIUM 1 EACH TAB PO SCH (20:21)
[2022-02-09] MEDS: HEPARIN SODIUM,PORCINE/PF 5,000 UNIT/0.5 ML SYRINGE SQ SCH (20:21)
[2022-02-09] MEDS: FLUTICASONE 50MCG/SPRAY NASAL 16GM EA NOSTRIL SCH (20:21)
[2022-02-09] MEDS ORDERED: GABAPENTIN 300 MG CAP PO SCH ×2 (21:00)
[2022-02-09] MEDS ORDERED: DOCUSATE 100 MG CAP PO SCH (21:00)
[2022-02-09] MEDS ORDERED: NON FORMULARY DRUG (Vancomycin Hcl In 5 % Dextrose [Vancomycin 1 Gram/250 Ml-D5w] 1 GM/250 IV SCH (21:00)
--- NOTE | 2022-02-09 21:04 | US ---
EXAMINATION TYPE: US venous doppler duplex UE LT DATE OF EXAM: 02/09/2022 COMPARISON: NONE CLINICAL HISTORY: dvt/fever. Hx right shoulder joint infection; hx right superficial vein thrombosis SIDE PERFORMED: Left Left Arm: Negative for DVT IMPRESSION: No sign of deep vein thrombosis in the left arm.
[2022-02-09] MEDS: ACETAMINOPHEN TAB 325 MG TAB PO PRN (21:23)
--- NOTE | 2022-02-09 21:48 | P.HPIM ---
History of Present Illness H&P Date: 02/09/22 HISTORY OF PRESENT ILLNESS 56-year-old female was hospitalized in 01/05/2022 for severe right shoulder pain and discomfort in the finding to have thick to joint with acromioclavicular severe arthritis. Apparently symptoms develop 01/02/2022 with no previous injury patient symptoms become severe presented to [facility] on 01/04/2022 CAT scan was perform at the time showed some fluid in the acromioclavicular joint ended up having Dr. Brar's. Joint for BiPAP 0.5 mL of bloody fluid and analysis ended up coming as an MRSA culture. Patient was hospitalized and remain in the hospital until 01/14/2022 during this time patient ended up going for irrigation and debridement of the shoulder time to culture was obtained twice and showed MRSA. Patient had a PICC line started and was started on IV vancomycin seen infectious disease after O[place] and ended up being discharged on IV antibiotic for total of 6 weeks. Patient apparently developed to have slight bit problem with fluctuating fever and chills ended up and switch from Vanco to daptomycin. Patient was supposed to finish her antibiotics in the next 3 days when developed today to have significant fever and chills with worsening discomfort. X-ray failed to show any abnormality. Laboratory evaluation showed WBC of 7.9 with lactic acid 3.7 blood sugar of 124 slightly abnormal liver function test and normal urine influenza and Covid T came back negative. His determined to be infection not a clear source at this point it doesn't seem like her shoulder as a source she might have line action PICC line. We'll continue daptomycin at this point, consult infectious disease urine culture but her PICC line will be taking out for culture as well and try to obtain peripheral line for antibiotic use for now. Also continued to have significant discomfort in the shoulder area patient be seen orthopedic. REVIEW OF SYSTEMS Constitutional: No fever, no chills, no night sweats. No weight change. No weakness, fatigue or lethargy. No daytime sleepiness. EENT: No headache. No blurred vision or double vision, no loss of vision. No loss of Hearing, no ringing in the ears, no dizziness. No nasal drainage or congestion. No epistaxis. No sore throat. Lungs: No shortness of breath, cough, no sputum production. No wheezing. Cardiovascular: No chest pain, no lower extremity edema. No palpitations. No paroxysmal nocturnal dyspnea. No orthopnea. No lightheadedness or dizziness. No syncopal episodes. Abdominal: No abdominal pain. No nausea, vomiting. No diarrhea. No constipation. No bloody or tarry stools.. No loss of appetite. Genitourinary: No dysuria, increased frequency, urgency. No urinary retention. Musculoskeletal: Significant right shoulder pain and discomfort restriction to motion with neck pain as well., no gait dysfunction, no frequent falls. No back pain. No neck pain. Integumentary: No wounds, no lesions. No rash or pruritus. No unusual bruising. No change in hair or nails. Neurologic: No aphasia. No facial droop. No change in mentation. No head injury. No headache. No paralysis. No paresthesia. Psychiatric: No depression. No anxiety. No mood swings. Endocrine: No abnormal blood sugars. No weight change. No excessive sweating or thirst. No cold intolerance. SOCIAL HISTORY She does not smoke, no code abuse, no drug use, patient does not use any CPAP no oxygen she is and lives with her . FAMILY HISTORY Father from complication of stroke and atherosclerotic heart disease at age 70, mother is living in her 92 with mild memory loss. She had 3 siblings with no major medical problem and she had 2 children are all living and well. PHYSICAL EXAMINATION Gen: This is a well-developed no acute respiratory distress. HEENT: Head is atraumatic, normocephalic. Pupils equal, round. Sclerae is ani cteric. NECK: Supple. No JVD. No lymphadenopathy. No thyromegaly. LUNGS: Clear to auscultation. No wheezes or rhonchi. No intercostal retractions. HEART: Regular rate and rhythm. No murmur. ABDOMEN: Soft. Bowel sounds are present. No masses. No tenderness. EXTREMITIES: No pedal edema. No calf tenderness. Right shoulder had significant pain and discomfort no sign of abscess or worsening infection or drainage no open area. PICC line in the right arm does not show any sign of atenolol or abscesses no infection. He was found. NEUROLOGICAL: Patient is awake, alert and oriented x3. Cranial nerves 2 through 12 are grossly intact. ASSESSMENT AND PLAN 1 sepsis: Not clear etiology that could be line infection at this time specially the PICC line, will continue daptomycin, consult infectious disease would DC PICC line and send it for culture the meanwhile wait for the final culture of tip of the line along with blood culture. 2. Acute infected right shoulder joint: Post drainage watch and debridement. With IV antibiotic has doing much better so far was switched from vancomycin to daptomycin. Patient be seen orthopedics time. 3 abnormal liver function test with significantly elevated ALT ST: Not a clear etiology at this point liver function tests might be done. 4 hyperglycemia: Patient blood sugar was 185 Accu-Chek with sliding scale coverage and be done patient has not been diabetic. 5 elevated blood pressure: Probably affected by her pain and discomfort with start patient on smaller dose of our losartan 50 mg a day and keep patient on hydralazine 25 mg every 6 hour for systolic blood pressure above 140. 6 intractable pain and discomfort in the right shoulder area:from the infected site in the right shoulder, patient to continue using hydrocortisone on an as- needed basis. 7 hyperglycemia: Accu-Chek with sliding scales coverage and continue diet control. 8 GERD/GI prophylaxis: Patient will be on Pepcid. 7 DVT prophylaxis: Patient will be on Lovenox 40 mg subcutaneous daily. CODE STATUS: Full code.\ COVID-19 testing was negative. patient be admitted to the hospital for more than 2 night stay. Past Medical History Past Medical History: GERD/Reflux, Pneumonia Additional Past Medical History / Comment(s): HTN with only, n umbness/tingling bilateral feet toes, bronchitis, UTI, concusion, occasional sciatica, anemia. History of Any Multi-Drug Resistant Organisms: MRSA Date of last positivie culture/infection: 01/09/22 MDRO Source:: shoulder MRSA AND BLOOD Past Surgical History: Hysterectomy Additional Past Surgical History / Comment(s): EGD, D&C, bladder sling Past Anesthesia/Blood Transfusion Reactions: Postoperative Nausea & Vomiting (PONV) Past Psychological History: No Psychological Hx Reported Smoking Status: Never smoker Past Alcohol Use History: Rare - Past Family History Father Family Medical History: CVA/TIA, Musculoskeletal Disorder Additional Family Medical History / Comment(s): Gout, parkinson's disease, of a CVA Mother Family Medical History: No Reported History Additional Family Medical History / Comment(s): Mother is 92 yrs old. Medications and Allergies Home Medications Medication Instructions Recorded Confirmed Type Albuterol Inhaler [Ventolin Hfa 2 puff INHALATION RT-Q4H PRN 01/05/22 02/09/22 History Inhaler] Losartan [Cozaar] 100 mg PO DAILY #60 tab 01/14/22 02/09/22 Rx Ondansetron Odt [Zofran Odt] 4 mg PO Q8HR PRN #14 tab 01/14/22 02/09/22 Rx amLODIPine [Norvasc] 5 mg PO DAILY #30 tab 01/14/22 02/09/22 Rx Acetaminophen Tab [Tylenol Tab] 1,000 mg PO Q6HR PRN 02/09/22 02/09/22 History DAPTOmycin [Cubicin] 462.666 mg IV DAILY 02/09/22 02/09/22 History Fluticasone Nasal [place] [Flonase 2 spray EA NOSTRIL DAILY PRN 02/09/22 02/09/22 History Nasal [place]] Ibuprofen [Motrin] 800 mg PO Q8H PRN 02/09/22 02/09/22 History Allergies Allergy/AdvReac Type Severity Reaction Status Date / Time Sulfa (Sulfonamide Allergy Nausea & Verified 02/09/22 17:11 Antibiotics) Vomiting hydromorphone [From Dilaudid] AdvReac Hallucinati Verified 02/09/22 17:11 ons vancomycin AdvReac Red Man's Verified 02/09/22 17:11 Syndrome Physical Exam Vitals: Vital Signs Temp Pulse Resp BP Pulse Ox 02/09/22 14:44 106 H 16 132/73 95 02/09/22 13:30 98.6 F 112 H 18 127/67 97 02/09/22 11:03 100.4 F H 146 H 18 129/75 99 Intake and Output 02/09/22 02/09/22 02/09/22 06:59 14:59 22:59 Other: Weight 77.111 kg Results CBC & Chem 7: 02/09/22 12:15 02/09/22 12:15 Labs: Abnormal Lab Results - Last 24 Hours (Table) 02/09/22 02/09/22 02/09/22 Range/Units 12:15 12:15 12:15 Lymphocytes # 0.7 L (1.0-4.8) k/uL Sodium 131 L (137-145) mmol/L Carbon Dioxide 21 L (22-30) mmol/L Glucose 124 H (74-99) mg/dL Plasma Lactic Acid Rupert 3.7 H* (0.7-2.0) mmol/L AST 61 H (14-36) U/L ALT 51 H (4-34) U/L
--- NOTE | 2022-02-10 06:55 | P.CONS ---
History of Present Illness - Reason for Consult Consult date: 02/09/22 Fever of unknown origin Requesting physician: Farhat Nino - Chief Complaint Fever and chills x one day - History of Present Illness Patient is a 56-year female was recently admitted to this facility and the patient is currently being treated for right shoulder septic arthritis with MRSA bacteremia and is getting daptomycin in the outpatient setting as she did have some problem with the IV vancomycin with a rash patient is presenting to the [facility] on ER this afternoon for evaluation of rigors and chills that apparently started this morning after infusion of her daptomycin dose and the patient was concerned for possible allergic reaction to it however the patient denies having any rash which denies having any URI symptoms denies having any nausea no vomiting no chest pain shortness of breath or cough no abdominal pain no diarrhea no burning or frequency of urine patient right shoulder wound is almost healed up and denies having any worsening pain to the right shoulder area or any drainage with the center the patient was evaluated by ER physician on arrival to the ER the patient did have a fever of 100.4 F patient did have normal white count with lymphopenia creatinine was normal he did have lactic acid of three-point 7 repeat is 1.4 liver exams are mildly elevated UA was negative COVID and influenza PCR was negative patient did have a chest x-ray no acute cardiopulmonary process patient has been admitted to the hospital infectious disease was consulted for further management Review of Systems Positive point has been mentioned in the HPI rest of the systems are negative Past Medical History Past Medical History: GERD/Reflux, Pneumonia Additional Past Medical History / Comment(s): HTN with only, numbness/tingling bilateral feet toes, bronchitis, UTI, concusion, occasional sciatica, anemia. History of Any Multi-Drug Resistant Organisms: MRSA Year Discovered:: 01/09/22 MDRO Source:: shoulder MRSA AND BLOOD Past Surgical History: Hysterectomy Additional Past Surgical History / Comment(s): EGD, D&C, bladder sling Past Anesthesia/Blood Transfusion Reactions: Postoperative Nausea & Vomiting (PONV) Past Psychological History: No Psychological Hx Reported Smoking Status: Never smoker Past Alcohol Use History: Rare - Past Family History Father Family Medical History: CVA/TIA, Musculoskeletal Disorder Additional Family Medical History / Comment(s): Gout, parkinson's disease, of a CVA Mother Family Medical History: No Reported History Additional Family Medical History / Comment(s): Mother is 92 yrs old. Medications and Allergies Home Medications Medication Instructions Recorded Confirmed Type Albuterol Inhaler [Ventolin Hfa 2 puff INHALATION RT-Q4H PRN 01/05/22 02/09/22 History Inhaler] Losartan [Cozaar] 100 mg PO DAILY #60 tab 01/14/22 02/09/22 Rx Ondansetron Odt [Zofran Odt] 4 mg PO Q8HR PRN #14 tab 01/14/22 02/09/22 Rx amLODIPine [Norvasc] 5 mg PO DAILY #30 tab 01/14/22 02/09/22 Rx Acetaminophen Tab [Tylenol Tab] 1,000 mg PO Q6HR PRN 02/09/22 02/09/22 History DAPTOmycin [Cubicin] 462.666 mg IV DAILY 02/09/22 02/09/22 History Fluticasone Nasal [place] [Flonase 2 spray EA NOSTRIL DAILY PRN 02/09/22 02/09/22 History Nasal [place]] Ibuprofen [Motrin] 800 mg PO Q8H PRN 02/09/22 02/09/22 History Allergies Allergy/AdvReac Type Severity Reaction Status Date / Time Sulfa (Sulfonamide Allergy Nausea & Verified 02/09/22 17:11 Antibiotics) Vomiting hydromorphone [From Dilaudid] AdvReac Hallucinati Verified 02/09/22 17:11 ons vancomycin AdvReac Red Man's Verified 02/09/22 17:11 Syndrome Physical Exam Vitals: Vital Signs Temp Pulse Resp BP Pulse Ox 02/09/22 14:44 106 H 16 132/73 95 02/09/22 13:30 98.6 F 112 H 18 127/67 97 02/09/22 11:03 100.4 F H 146 H 18 129/75 99 Intake and Output 02/09/22 02/09/22 02/09/22 06:59 14:59 22:59 Other: Weight 77.111 kg GENERAL DESCRIPTION: Middle-aged female lying in bed, no distress. No tachypnea or accessory muscle of respiration use. HEENT: Shows Pallor , no scleral icterus. Oral mucous membrane is dry. No pharyngeal erythema or thrush NECK: Trachea central, no thyromegaly. LUNGS: Unlabored breathing. Clear to auscultation anteriorly. No wheeze or crackle. HEART: S1, S2, regular rate and rhythm. No loud murmur ABDOMEN: Soft, no tenderness , guarding or rigidity, no organomegaly EXTREMITIES: No edema of feet. Right shoulder wound significant decrease in size and depth no surrounding redness or drainage SKIN: No rash, no masses palpable. NEUROLOGICAL: The patient is awake, alert, oriented x3, mood and affect normal. Results CBC & Chem 7: 02/09/22 12:15 02/09/22 12:15 Labs: Abnormal Lab Results - Last 24 Hours (Table) 02/09/22 02/09/22 02/09/22 Range/Units 12:15 12:15 12:15 Lymphocytes # 0.7 L (1.0-4.8) k/uL Sodium 131 L (137-145) mmol/L Carbon Dioxide 21 L (22-30) mmol/L Glucose 124 H (74-99) mg/dL Plasma Lactic Acid Rupert 3.7 H* (0.7-2.0) mmol/L AST 61 H (14-36) U/L ALT 51 H (4-34) U/L Assessment and Plan (1) Fever of unknown origin Current Visit: Yes Status: Acute Code(s): R50.9 - FEVER, UNSPECIFIED SNOMED Code(s): 4825455 (2) Joint infection Current Visit: No Status: Acute Code(s): M00.9 - PYOGENIC ARTHRITIS, UNSPECIFIED SNOMED Code(s): 694960687 Plan: 1patient presented to hospital with fever rigors and chills with a question of possible PICC line infection versus DVT to the left upper extremity in this patient currently getting daptomycin for right shoulder septic arthritis with bacteremia. 2blood culture has been obtained from the PICC line peripherally and those will be followed. 3we will obtain a Doppler ultrasound left upper extremity to make sure evidence of any DVT. 4check a ultrasound of the liver gallbladder area and she did have elevated liver enzymes. 5daptomycin 6 mg/kg daily to continue. 6Prisma packing of the wound every 48 hour. We will follow on clinical condition and cultures to further adjust medication if needed Thank you for this consultation will follow this patient along with you Time with Patient: Greater than 30
[2022-02-10] MEDS ORDERED: CEFEPIME 2 GM in SODIUM CHLORIDE 0.9% 100 ML IVPB SCH (08:00)
[2022-02-10] MEDS: HEPARIN SODIUM,PORCINE/PF 5,000 UNIT/0.5 ML SYRINGE SQ SCH ×2 (08:02→21:15)
[2022-02-10] MEDS: SENNOSIDES-DOCUSATE SODIUM 1 EACH TAB PO SCH ×2 (08:03→21:16)
[2022-02-10] MEDS: amLODIPine 5 MG TAB PO SCH (08:03)
[2022-02-10] MEDS: LOSARTAN 50 MG TAB PO SCH (08:03)
--- NOTE | 2022-02-10 11:36 | P.PN ---
Subjective Progress Note Date: 02/10/22 Principal diagnosis: Gram-negative bacteremia and right shoulder MRSA septic arthritis Patient is a 56 year old female currently being treated for a right shoulder septic arthritis and MRSA bacteremia with IV daptomycin in the outpatient setting, patient presented to the hospital with fever rigors and chills and subsequently noticed to have a gram-negative bacteremia, PICC line has been discontinued. on today's evaluation that is 02/10/2022, the patient overall fever pattern has improved, patient is feeling slightly better, denies having any chest pain shortness of breath or cough pain to the right shoulder is currently controlled no nausea no vomiting no abdominal pain no diarrhea Objective - Vital Signs Vital signs: Vital Signs Temp 99.3 F 02/10/22 04:20 Pulse 96 02/10/22 04:20 Resp 18 02/10/22 04:20 BP 144/84 02/10/22 04:20 Pulse Ox 97 02/10/22 04:20 Intake & Output 02/09/22 02/10/22 02/10/22 18:59 06:59 18:59 Intake Total 1200 Balance 1200 Weight 77.111 kg Intake: Oral 1200 Other: Voiding Method Toilet # Voids 3 - Exam GENERAL DESCRIPTION: A middle-age female lying in bed in no distress RESPIRATORY SYSTEM: Unlabored breathing , decreased breath sounds at bases HEART: S1 S2 regular rate and rhythm , ABDOMEN: Soft , no tenderness EXTREMITIES: No edema feet - Labs CBC & Chem 7: 02/09/22 12:15 02/09/22 12:15 Labs: Abnormal Lab Results - Last 24 Hours (Table) 02/09/22 02/09/22 02/09/22 Range/Units 12:15 12:15 12:15 Lymphocytes # 0.7 L (1.0-4.8) k/uL Sodium 131 L (137-145) mmol/L Carbon Dioxide 21 L (22-30) mmol/L Glucose 124 H (74-99) mg/dL Plasma Lactic Acid Rupert 3.7 H* (0.7-2.0) mmol/L AST 61 H (14-36) U/L ALT 51 H (4-34) U/L Microbiology - Last 24 Hours (Table) 02/09/22 12:15 Blood Culture Gram Stain - Preliminary Blood 02/09/22 12:30 Blood Culture Gram Stain - Preliminary Blood 02/09/22 12:15 Blood Culture - Final Blood 02/09/22 12:15 Blood Culture - Final Blood 02/09/22 19:50 Catheter Tip Culture - Preliminary Picc Line Assessment and Plan (1) Fever of unknown origin Current Visit: Yes Status: Acute Code(s): R50.9 - FEVER, UNSPECIFIED SNO MED Code(s): 1890176 (2) Joint infection Current Visit: No Status: Acute Code(s): M00.9 - PYOGENIC ARTHRITIS, UNSPECIFIED SNOMED Code(s): 447621328 Plan: 1patient presented to hospital with fever rigors and chills with a question of possible PICC line infection versus DVT to the left upper extremity in this patient currently getting daptomycin for right shoulder septic arthritis with bacteremia. 2blood culture came positive gram-negative bacilli PICC line has been discontinued 3Doppler ultrasound left upper extremity was negative for DVT. 4 ultrasound of the liver gallbladder area is currently pending 5patient to continue with daptomycin 6 mg/kg daily along with cefepime while waiting for the culture to be finalize. 6Prisma packing of the wound every 48 hour. Time with Patient: Less than 30
--- NOTE | 2022-02-10 12:35 | P.PN ---
Subjective Progress Note Date: 02/10/22 HISTORY OF PRESENT ILLNESS 56-year-old female was hospitalized in 01/05/2022 for severe right shoulder pain and discomfort in the finding to have thick to joint with acromioclavicular severe arthritis. Apparently symptoms develop 01/02/2022 with no previous injury patient symptoms become severe presented to [facility] department on 01/04/2022 CAT scan was perform at the time showed some fluid in the acromioclavicular joint ended up having Dr. Brar's. Joint for BiPAP 0.5 mL of bloody fluid and analysis ended up coming as an MRSA culture. Patient was hospitalized and remain in the hospital until 01/14/2022 during this time patient ended up going for irrigation and debridement of the shoulder time to culture was obtained twice and showed MRSA. Patient had a PICC line started and was started on IV vancomycin seen infectious disease after Oren and ended up being discharged on IV antibiotic for total of 6 weeks. Patient apparently developed to have slight bit problem with fluctuating fever and chills ended up and switch from Vanco to daptomycin. Patient was supposed to finish her antibiotics in the next 3 days when developed today to have significant fever and chills with worsening discomfort. X-ray failed to show any abnormality. Laboratory evaluation showed WBC of 7.9 with lactic acid 3.7 blood sugar of 124 slightly abnormal liver function test and normal urine influenza and Covid T came back negative. His determined to be infection not a clear source at this point it doesn't seem like her shoulder as a source she might have line action PICC line. We'll continue daptomycin at this point, consult infectious disease urine culture but her PICC line will be taking out for culture as well and try to obtain peripheral line for antibiotic use for now. Also continued to have significant discomfort in the shoulder area patient be seen orthopedic. 02/10: Patient is seen today on the [facility] floor. Patient has been seen by Dr. Lott and maintained on cefepime and daptomycin. After a dose of daptomycin yesterday, patient thought she developed rigors, vomiting and elevated heart rate which she thought was related to the daptomycin. This will be placed on hold this morning until patient is seen by Dr. Lott. temperature during the night 100.2, blood pressure 144/84, heart rate 96, PO 97% on room air.Repeat lactic acid 1.4. PICC line was removed and catheter sent for culture. Patient has what culture that is positive for gram-negative bacilli x2. Liver ultrasound is pending. Patient also had an ultrasound of the abdomen / for elevated liver function tests which revealed nonspecific pattern to the liver seen with hepatic steatosis, diffuse hepatocellular disease including hepatitis. At that time she also underwent hepatitis panel which came back negative. Consult added for OA. REVIEW OF SYSTEMS Constitutional: Reports fever, Reports chills, no night sweats. No weight change. No weakness,Reports fatigue or lethargy. No daytime sleepiness. EENT: No headache. No blurred vision or double vision, no loss of vision. No loss of Hearing, no ringing in the ears, no dizziness. No nasal drainage or congestion. No epistaxis. No sore throat. Lungs: No shortness of breath, cough, no sputum production. No wheezing. Cardiovascular: No chest pain, no lower extremity edema. No palpitations. No paroxysmal nocturnal dyspnea. No orthopnea. No lightheadedness or dizziness. No syncopal episodes. Abdominal: No abdominal pain. No nausea, vomiting. No diarrhea. No constip ation. No bloody or tarry stools.. No loss of appetite. Genitourinary: No dysuria, increased frequency, urgency. No urinary retention. Musculoskeletal: Mild right shoulder pain and discomfort restriction to motion with neck pain as well., no gait dysfunction, no frequent falls. No back pain. No neck pain. Integumentary: No wounds, no lesions. No rash or pruritus. No unusual bruising. No change in hair or nails. Neurologic: No aphasia. No facial droop. No change in mentation. No head injury. No headache. No paralysis. No paresthesia. Psychiatric: No depression. No anxiety. No mood swings. Endocrine: No abnormal blood sugars. No weight change. No excessive sweating or thirst. No cold intolerance. PHYSICAL EXAMINATION Gen: This is a well-developed no acute respiratory distress. HEENT: Head is atraumatic, normocephalic. Pupils equal, round. Sclerae is anicteric. NECK: Supple. No JVD. No lymphadenopathy. No thyromegaly. LUNGS: Clear to auscultation. No wheezes or rhonchi. No intercostal retractions. HEART: Regular rate and rhythm. No murmur. ABDOMEN: Soft. Bowel sounds are present. No masses. No tenderness. EXTREMITIES: No pedal edema. No calf tenderness. Right shoulder mild pain and discomfort no sign of abscess or worsening infection or drainage no open area. NEUROLOGICAL: Patient is awake, alert and oriented x3. Cranial nerves 2 through 12 are grossly intact. ASSESSMENT AND PLAN 1 sepsis: Not clear etiology that could be line infection at this time specially the PICC line, will continue daptomycin and cefepime, consult infectious disease appreciated, PICC line discontinued and send it for culture the meanwhile wait for the final culture of tip of the line along with blood culture. 2. Acute infected right shoulder joint: Post drainage watch and debridement. With IV antibiotic has doing much better so far was switched from vancomycin to daptomycin. Patient be seen orthopedics. 3 abnormal liver function test with significantly elevated ALT ST: Not a clear etiology at this point liver function tests might be done. Previous US positive for fatty liver and hepatitis panel negative. Repeat US ordered by ID. 4 hyperglycemia: Patient blood sugar was 185 Accu-Chek with sliding scale coverage and be done patient has not been diabetic. 5 elevated blood pressure: Probably affected by her pain and discomfort with start patient on smaller dose of our losartan 50 mg a day and keep patient on hydralazine 25 mg every 6 hour for systolic blood pressure above 140. 6 intractable pain and discomfort in the right shoulder area:from the infected site in the right shoulder, patient to continue using hydrocortisone on an as- needed basis. 7 hyperglycemia: Accu-Chek with sliding scales coverage and continue diet control. 8 GERD/GI prophylaxis: Patient will be on Pepcid. 7 DVT prophylaxis: Patient will be on Lovenox 40 mg subcutaneous daily. CODE STATUS: Full code.\ COVID-19 testing was negative. DISCHARGE PLAN Home Impression and plan of care have been directed as dictated by the signing physician. Ruby Candelario nurse practitioner acting as scribe for signing physician. Objective - Vital Signs Vital signs: Vital Signs Temp 99.3 F 02/10/22 04:20 Pulse 96 02/10/22 04:20 Resp 18 02/10/22 04:20 BP 144/84 02/10/22 04:20 Pulse Ox 97 02/10/22 04:20 Intake & Output 02/09/22 02/10/22 02/10/22 18:59 06:59 18:59 Intake Total 1200 Balance 1200 Weight 77.111 kg Intake: Oral 1200 Other: Voiding Method Toilet # Voids 3 - Labs CBC & Chem 7: 02/09/22 12:15 02/09/22 12:15 Labs: Abnormal Lab Results - Last 24 Hours (Table) 02/09/22 02/09/22 02/09/22 Range/Units 12:15 12:15 12:15 Lymphocytes # 0.7 L (1.0-4.8) k/uL Sodium 131 L (137-145) mmol/L Carbon Dioxide 21 L (22-30) mmol/L Glucose 124 H (74-99) mg/dL Plasma Lactic Acid Rupert 3.7 H* (0.7-2.0) mmol/L AST 61 H (14-36) U/L ALT 51 H (4-34) U/L Microbiology - Last 24 Hours (Table) 02/09/22 12:15 Blood Culture Gram Stain - Preliminary Blood 02/09/22 12:30 Blood Culture Gram Stain - Preliminary Blood 02/09/22 12:15 Blood Culture - Final Blood 02/09/22 12:15 Blood Culture - Final Blood 02/09/22 19:50 Catheter Tip Culture - Preliminary Picc Line
--- NOTE | 2022-02-10 12:52 | US ---
EXAMINATION TYPE: US abdomen limited DATE OF EXAM: 02/10/2022 COMPARISON: NONE CLINICAL HISTORY: 56-year-old female elevated LFT. Recent infection, abn labs, no symptoms TECHNIQUE: Multiple sonographic images of the right upper quadrant are obtained. FINDINGS: EXAM MEASUREMENTS: Liver Length: 18.8 cm Gallbladder Wall: 0.2 cm CBD: 5 mm Right Kidney: 10.6 x 4.6 x 5.4 cm [employer] Supervisor notes:overlying bowel gas limits exam Pancreas: Pancreatic tail obscured by bowel gas shadowing. Most of the pancreas is visualized and sh ows no gross abnormality. Liver: Mildly enlarged, slightly echogenic. No focal lesion seen. Gallbladder: wnl Evidence for sonographic Barone's sign: no CBD: wnl Right Kidney: wnl IMPRESSION: 1. Mild hepatomegaly (18.8 cm). Correlate for moderate hepatic steatosis with LFTs, lipid profile, an d patient risk factors. 2. No gallstones or biliary ductal dilatation.
--- NOTE | 2022-02-10 13:18 | P.CNOR ---
History of Present Illness - HPI Consult date: 02/10/22 History of present illness: This is a 56-year-old female who was admitted for fever. Orthopedics is consulted due to recent I&D of the right shoulder. Patient states that last night after her infusion of daptomycin she developed severe chills and a fever. Patient has been on IV antibiotics via PICC line and is being managed by infecti ous disease for this. Patient states that she went for evaluation in the emergency room and was admitted to rule out infection of her PICC line. Patient states that she has not experienced any fever or chills today. Patient denies any pain in the right shoulder. Patient's past medical history significant for GERD. Patient denies any fever/chills, numbness, weakness, tingling, abdominal pain, shortness of breath or chest pain. Review of Systems See HPI. Past Medical History Past Medical History: GERD/Reflux, Pneumonia Additional Past Medical History / Comment(s): HTN with only, numbness/tingling bilateral feet toes, bronchitis, UTI, concusion, occasional sc iatica, anemia. History of Any Multi-Drug Resistant Organisms: MRSA Year Discovered:: 01/09/22 MDRO Source:: shoulder MRSA AND BLOOD Past Surgical History: Hysterectomy Additional Past Surgical History / Comment(s): EGD, D&C, bladder sling Past Anesthesia/Blood Transfusion Reactions: Postoperative Nausea & Vomiting (PONV) Past Psychological History: No Psychological Hx Reported Smoking Status: Never smoker Past Alcohol Use History: Rare - Past Family History Father Family Medical History: CVA/TIA, Musculoskeletal Disorder Additional Family Medical History / Comment(s): Gout, parkinson's disease, of a CVA Mother Family Medical History: No Reported History Additional Family Medical History / Comment(s): Mother is 92 yrs old. Medications and Allergies Home Medications Medication Instructions Recorded Confirmed Type Albuterol Inhaler [Ventolin Hfa 2 puff INHALATION RT-Q4H PRN 01/05/22 02/09/22 History Inhaler] Losartan [Cozaar] 100 mg PO DAILY #60 tab 01/14/22 02/09/22 Rx Ondansetron Odt [Zofran Odt] 4 mg PO Q8HR PRN #14 tab 01/14/22 02/09/22 Rx amLODIPine [Norvasc] 5 mg PO DAILY #30 tab 01/14/22 02/09/22 Rx Acetaminophen Tab [Tylenol Tab] 1,000 mg PO Q6HR PRN 02/09/22 02/09/22 History DAPTOmycin [Cubicin] 462.666 mg IV DAILY 02/09/22 02/09/22 History Fluticasone Nasal [place] [Flonase 2 spray EA NOSTRIL DAILY PRN 02/09/22 02/09/22 History Nasal [place]] Ibuprofen [Motrin] 800 mg PO Q8H PRN 02/09/22 02/09/22 History Allergies Allergy/AdvReac Type Severity Reaction Status Date / Time Sulfa (Sulfonamide Allergy Nausea & Verified 02/09/22 17:11 Antibiotics) Vomiting hydromorphone [From Dilaudid] AdvReac Hallucinati Verified 02/09/22 17:11 ons vancomycin AdvReac Red Man's Verified 02/09/22 17:11 Syndrome Physical Examination On exam patient is resting comfortably in bed in no acute distress. Patient is alert and oriented 3. There is no pain with active range of motion of the right shoulder. There is a healing incision over the right shoulder. There is no swelling, erythema or drainage present. Sensation intact. Neurovascular status and circulatory status are intact. Results - Labs Labs: Abnormal Lab Results - Last 24 Hours (Table) 02/09/22 Range/Units 12:15 Plasma Lactic Acid Rupert 3.7 H* (0.7-2.0) mmol/L Microbiology - Last 24 Hours (Table) 02/09/22 12:30 Blood Culture Gram Stain - Preliminary Blood Blood Culture - Preliminary Escherichia coli 02/09/22 12:15 Blood Culture Gram Stain - Preliminary Blood 02/09/22 12:15 Blood Culture - Final Blood 02/09/22 12:15 Blood Culture - Final Blood 02/09/22 19:50 Catheter Tip Culture - Preliminary Picc Line H & H 02/09/22 Range/Units 12:15 Hgb 13.3 (11.4-16.0) gm/dL Hct 40.7 (34.0-46.0) % Result Diagrams: 02/09/22 12:15 02/09/22 12:15 Assessment and Plan Plan: 1. Blood cultures are positive for E. coli. 2. Appreciate input from infectious disease. IV antibiotics and wound care per infectious disease. 3. Patient has no symptoms of pain, swelling, drainage or erythema on exam of the right shoulder. Patient may work on range of motion for the right shoulder. No surgical intervention planned. We will continue to follow.
[2022-02-10] MEDS: MEROPENEM 1 GM in SODIUM CHLORIDE 0.9% 100 ML IVPB SCH (17:38)
[2022-02-10] MEDS: ACETAMINOPHEN TAB 325 MG TAB PO PRN (21:16)
[2022-02-10] MEDS: FLUTICASONE 50MCG/SPRAY NASAL 16GM EA NOSTRIL SCH (21:25)
[2022-02-11] MEDS: MEROPENEM 1 GM in SODIUM CHLORIDE 0.9% 100 ML IVPB SCH ×3 (00:54→17:26)
[2022-02-11] MEDS: IOPAMIDOL CONTRAST (ORAL USE) VIAL PO PRN ×2 (09:03→10:39)
[2022-02-11] MEDS: HEPARIN SODIUM,PORCINE/PF 5,000 UNIT/0.5 ML SYRINGE SQ SCH ×2 (09:04→21:02)
[2022-02-11] MEDS: LOSARTAN 50 MG TAB PO SCH (09:04)
[2022-02-11] MEDS: SENNOSIDES-DOCUSATE SODIUM 1 EACH TAB PO SCH ×2 (09:04→21:01)
[2022-02-11] MEDS: amLODIPine 5 MG TAB PO SCH (09:08)
--- NOTE | 2022-02-11 11:19 | P.PN ---
Subjective Progress Note Date: 02/11/22 HISTORY OF PRESENT ILLNESS 56-year-old female was hospitalized in 01/05/2022 for severe right shoulder pain and discomfort in the finding to have thick to joint with acromioclavicular severe arthritis. Apparently symptoms develop 01/02/2022 with no previous injury patient symptoms become severe presented to [facility] department on 01/04/2022 CAT scan was perform at the time showed some fluid in the acromioclavicular joint ended up having Dr. Brar's. Joint for BiPAP 0.5 mL of bloody fluid and analysis ended up coming as an MRSA culture. Patient was hospitalized and remain in the hospital until 01/14/2022 during this time patient ended up going for irrigation and debridement of the shoulder time to culture was obtained twice and showed MRSA. Patient had a PICC line started and was started on IV vancomycin seen infectious disease after Oren and ended up being discharged on IV antibiotic for total of 6 weeks. Patient apparently developed to have slight bit problem with fluctuating fever and chills ended up and switch from Vanco to daptomycin. Patient was supposed to finish her antibiotics in the next 3 days when developed today to have significant fever and chills with worsening discomfort. X-ray failed to show any abnormality. Laboratory evaluation showed WBC of 7.9 with lactic acid 3.7 blood sugar of 124 slightly abnormal liver function test and normal urine influenza and Covid T came back negative. His determined to be infection not a clear source at this point it doesn't seem like her shoulder as a source she might have line action PICC line. We'll continue daptomycin at this point, consult infectious disease urine culture but her PICC line will be taking out for culture as well and try to obtain peripheral line for antibiotic use for now. Also continued to have significant discomfort in the shoulder area patient be seen orthopedic. 02/10: Patient is seen today on the [facility] floor. Patient has been seen by Dr. Lott and maintained on cefepime and daptomycin. After a dose of daptomycin yesterday, patient thought she developed rigors, vomiting and elevated heart rate which she thought was related to the daptomycin. This will be placed on hold this morning until patient is seen by Dr. Lott. temperature during the night 100.2, blood pressure 144/84, heart rate 96, PO 97% on room air.Repeat lactic acid 1.4. PICC line was removed and catheter sent for culture. Patient has what culture that is positive for gram-negative bacilli x2. Liver ultrasound is pending. Patient also had an ultrasound of the abdomen 01/06 for elevated liver function tests which revealed nonspecific pattern to the liver seen with hepatic steatosis, diffuse hepatocellular disease including hepatitis. At that time she also underwent hepatitis panel which came back negative. Consult added for OA. 02/11: Blood culture is positive for E coli without identified source. PICC culture is in progress. Dr. Lott changed antibiotics to cefepime and patient is continued on daptomycin. Patient denies having any fever or chills, no nausea or vomiting, no urinary symptoms. Patient was assessed and found no enlarged lymph nodes. Patient will need to have a colonoscopy as an outpatient also update her pelvic exam in March as scheduled. A CAT scan of the abdomen and pelvis will be ordered. Patient was seen by orthopedics regarding the right shoulder and she can work on range of motion of the right shoulder. Patient has been updated regarding findings on blood culture and plan for additional testing. Repeat abdominal ultrasound revealed mild cardiomegaly. Correlate for moderate hepatic steatosis with LFTs, lipid profile. No gallstones or biliary ductal dilatation. REVIEW OF SYSTEMS Constitutional: Denies fever, denies chills, no night sweats. No weight change. No weakness,Reports fatigue or lethargy. No daytime sleepiness. EENT: No headache. No blurred vision or double vision, no loss of vision. No loss of Hearing, no ringing in the ears, no dizziness. No nasal drainage or co ngestion. No epistaxis. No sore throat. Lungs: No shortness of breath, cough, no sputum production. No wheezing. Cardiovascular: No chest pain, no lower extremity edema. No palpitations. No paroxysmal nocturnal dyspnea. No orthopnea. No lightheadedness or dizziness. No syncopal episodes. Abdominal: No abdominal pain. No nausea, vomiting. No diarrhea. No constipation. No bloody or tarry stools. No loss of appetite. Genitourinary: No dysuria, increased frequency, urgency. No urinary retention. Musculoskeletal: Mild right shoulder pain and discomfort restriction to motion with neck pain as well., no gait dysfunction, no frequent falls. No back pain. No neck pain. Integumentary: No wounds, no lesions. No rash or pruritus. No unusual bruising. No change in hair or nails. Neurologic: No aphasia. No facial droop. No change in mentation. No head injury. No headache. No paralysis. No paresthesia. Psychiatric: No depression. No anxiety. No mood swings. Endocrine: No abnormal blood sugars. No weight change. No excessive sweating or thirst. No cold intolerance. PHYSICAL EXAMINATION Gen: This is a well-developed no acute respiratory distress. HEENT: Head is atraumatic, normocephalic. Pupils equal, round. Sclerae is anicteric. NECK: Supple. No JVD. No lymphadenopathy. No thyromegaly. LUNGS: Clear to auscultation. No wheezes or rhonchi. No intercostal retractions. HEART: Regular rate and rhythm. No murmur. ABDOMEN: Soft. Bowel sounds are present. No masses. No tenderness. EXTREMITIES: No pedal edema. No calf tenderness. Right shoulder mild pain and discomfort no sign of abscess or worsening infection or drainage no open area. NEUROLOGICAL: Patient is awake, alert and oriented x3. Cranial nerves 2 through 12 are grossly intact. ASSESSMENT AND PLAN 1 sepsis with E. coli bacteremia. Cefepime changed to meropenem. Patient is still on daptomycin. ID consult appreciated. Abdominal and pelvic CAT scan ordered. patient has no urinary symptoms. 2. Acute infected right shoulder joint: Post drainage and debridement. With IV antibiotic has doing much better so far was switched from vancomycin to daptomycin.Orthopedic consult appreciated. Patient to increase range of motion to the right shoulder. . 3 abnormal liver function test with significantly elevated ALT ST: Not a clear etiology at this point liver function tests might be done. Previous US positive for fatty liver and hepatitis panel negative. Repeat US ordered by ID. 4 hyperglycemia: Patient blood sugar was 185 Accu-Chek with sliding scale coverage and be done patient has not been diabetic. 5 elevated blood pressure: Probably affected by her pain and discomfort with start patient on smaller dose of our losartan 50 mg a day and keep patient on hydralazine 25 mg every 6 hour for systolic blood pressure above 140. 6 intractable pain and discomfort in the right shoulder area:from the infected site in the right shoulder, patient to continue using hydrocortisone on an as- needed basis. 7 hyperglycemia: Accu-Chek with sliding scales coverage and continue diet control. 8 GERD/GI prophylaxis: Patient will be on Pepcid. 7 DVT prophylaxis: Patient will be on Lovenox 40 mg subcutaneous daily. CODE STATUS: Full code.\ COVID-19 testing was negative. DISCHARGE PLAN Home Impression and plan of care have been directed as dictated by the signing physician. uRby Candelario nurse practitioner acting as scribe for signing physician. Objective - Vital Signs Vital signs: Vital Signs Temp 97.8 F 02/11/22 04:08 Pulse 67 02/11/22 04:08 Resp 16 02/11/22 04:08 BP 124/73 02/11/22 04:08 Pulse Ox 99 02/11/22 04:08 Intake & Output 02/10/22 02/11/22 02/11/22 18:59 06:59 18:59 Intake Total 100 Balance 100 Intake: Intake, IV Titration 100 Amount Meropenem 1 gm In Sodium 100 Chloride 0.9% 100 ml @ 33 .3 mls/hr IVPB Q8HR [facility] Rx#:[id number] Other: Voiding Method Toilet # Voids 2 1 - Labs CBC & Chem 7: 02/09/22 12:15 02/09/22 12:15 Labs: Microbiology - Last 24 Hours (Table) 02/09/22 12:30 Blood Culture Gram Stain - Preliminary Blood Blood Culture - Preliminary Escherichia coli 02/09/22 12:15 Blood Culture Gram Stain - Preliminary Blood
--- NOTE | 2022-02-11 11:42 | CT ---
EXAMINATION TYPE: CT abdomen pelvis w con DATE OF EXAM: 02/11/2022 COMPARISON: Ultrasound dated 02/10/2022 HISTORY: h/o e coli bacteremia CT DLP: 1025 mGycm Automated exposure control for dose reduction was used. TECHNIQUE: Helical acquisition of images was performed from the lung bases through the pelvis. CONTRAST: Performed with Oral Contrast and with IV Contrast, patient injected with 100 mL of Isovue 300. FINDINGS: LUNG BASES: Minimal bilateral subpleural reticulations more on the right side. LIVER/GB: Enlarged liver measuring 19.1 cm with signs of hepatic steatosis. With this limitation, no definite hepatic focal lesion identified. Grossly unremarkable gallbladder. No intra or extrahepatic biliary tree dilatation. PANCREAS: No significant abnormality is seen. SPLEEN: Bulky spleen measuring 12.9 cm. No definite splenic focal lesion. ADRENALS: No significant abnormality is seen. KIDNEYS: Unremarkable kidneys. FREE AIR: No free air is visualized. RETROPERITONEAL ADENOPATHY: Subcentimeter retroperitoneal lymph nodes, nonspecific. REPRODUCTIVE ORGANS: Previous hysterectomy. No gross adnexal mass. URINARY BLADDER: No significant abnormality is seen. PELVIC ADENOPATHY: None visualized. OSSEOUS STRUCTURES: No aggressive bone lesion. BOWEL: Unremarkable nondistended stomach, duodenum and small bowel. Mild nonspecific wall thickening of the colon. Normal appendix. OTHER: Unremarkable abdominal aorta and IVC. No sizable ascites. Right anterior abdominal wall subcut aneous densities and air bubbles, please correlate with recent subcutaneous injections. IMPRESSION: Enlarged liver with signs of hepatic steatosis. Bulky spleen. Nonspecific mild wall thickening of the colon, otherwise no definite acute abnormality seen in the ab domen or the pelvis. Other findings as described above.
[2022-02-11] MEDS: ACETAMINOPHEN TAB 325 MG TAB PO PRN (11:52)
--- NOTE | 2022-02-11 12:57 | P.PN ---
Subjective Progress Note Date: 02/11/22 Principal diagnosis: Gram-negative Bacteremia. Status post I&D right acromioclavicular joint for septic arthritis, MRSA. Fever. This is a 56-year-old female who was admitted for fever. Orthopedics is consulted due to recent I&D of the right shoulder. Patient states that last ni ght after her infusion of daptomycin she developed severe chills and a fever. Patient has been on IV antibiotics via PICC line and is being managed by infectious disease for this. Patient states that she went for evaluation in the emergency room and was admitted to rule out infection of her PICC line. Patient states that she has not experienced any fever or chills today. Patient denies any pain in the right shoulder. Patient's past medical history significant for GERD. Patient denies any fever/chills, numbness, weakness, tingling, abdominal pain, shortness of breath or chest pain. 02/11/2022: Patient has no new orthopedic complaints today. She states that her shoulder is causing minimal pain. Gram stain and culture are showing gram-negative bacteria. Vital signs are stable. Objective - Vital Signs Vital signs: Vital Signs Temp 97.8 F 02/11/22 04:08 Pulse 67 02/11/22 04:08 Resp 16 02/11/22 04:08 BP 124/73 02/11/22 04:08 Pulse Ox 99 02/11/22 04:08 Intake & Output 02/10/22 02/11/22 02/11/22 18:59 06:59 18:59 Intake Total 100 Balance 100 Intake: Intake, IV Titration 100 Amount Meropenem 1 gm In Sodium 100 Chloride 0.9% 100 ml @ 33 .3 mls/hr IVPB Q8HR [facility] Rx#:[id number] Other: Voiding Method Toilet # Voids 2 1 - Exam This is a pleasant 56-year-old female in no acute distress. She is alert and oriented 3. Exam of the right shoulder reveals that the wound has decreased in size. There is Aquacel silver packing in place. No erythema or swelling in the surrounding soft tissue. New dressing is applied. She has improved range of motion of the shoulder. Minimal pain with motion. Neurovascular status to the upper extremity is intact. - Labs CBC & Chem 7: 02/09/22 12:15 02/09/22 12:15 Labs: Microbiology - Last 24 Hours (Table) 02/09/22 12:30 Blood Culture Gram Stain - Preliminary Blood Blood Culture - Preliminary Escherichia coli 02/09/22 12:15 Blood Culture Gram Stain - Preliminary Blood Assessment and Plan (1) Fever of unknown origin Current Visit: Yes Status: Acute Code(s): R50.9 - FEVER, UNSPECIFIED SNOMED Code(s): 8468077 (2) Positive blood culture Current Visit: Yes Status: Acute Code(s): R78.81 - BACTEREMIA SNOMED Code(s): 093734504 (3) Acromioclavicular joint arthritis Current Visit: No Status: Acute Code(s): M19.019 - PRIMARY OSTEOARTHRITIS, UNSPECIFIED SHOULDER SNOMED Code(s): 296667225 Plan: Family clinical findings are discussed with the patient. It does not appear that her shoulder is involved in her current bacteremia. Her shoulder is improving. She is to continue her scheduled dressing changes per infectious disease. We will follow peripherally.
[2022-02-11] MEDS: FLUTICASONE 50MCG/SPRAY NASAL 16GM EA NOSTRIL SCH (21:02)
[2022-02-12] MEDS: MEROPENEM 1 GM in SODIUM CHLORIDE 0.9% 100 ML IVPB SCH ×3 (00:13→16:10)
[2022-02-12] MEDS: ACETAMINOPHEN TAB 325 MG TAB PO PRN (00:15)
--- NOTE | 2022-02-12 07:37 | P.PN ---
Subjective Progress Note Date: 02/11/22 Principal diagnosis: Gram-negative bacteremia and right shoulder MRSA septic arthritis Patient is a 56 year old female currently being treated for a right shoulder septic arthritis and MRSA bacteremia with IV daptomycin in the outpatient setting, patient presented to the hospital with fever rigors and chills and subsequently noticed to have a gram-negative bacteremia, PICC line has been discontinued. on today's evaluation that is 02/11/2022, the patient is afebrile, patient is feeling better, denies having any chest pain shortness of breath or cough pain to the right shoulder is currently controlled , the patient denies nausea no vomiting no abdominal pain no diarrhea Objective - Vital Signs Vital signs: Vital Signs Temp 98 F 02/11/22 11:36 Pulse 78 02/11/22 11:36 Resp 20 02/11/22 11:36 BP 132/78 02/11/22 11:36 Pulse Ox 98 02/11/22 11:36 Intake & Output 02/10/22 02/11/22 02/11/22 18:59 06:59 18:59 Intake Total 100 Balance 100 Intake: Intake, IV Titration 100 Amount Meropenem 1 gm In Sodium 100 Chloride 0.9% 100 ml @ 33 .3 mls/hr IVPB Q8HR [facility] Rx#:[id number] Other: Voiding Method Toilet # Voids 2 1 - Exam GENERAL DESCRIPTION: A middle-age female lying in bed in no distress RESPIRATORY SYSTEM: Unlabored breathing , decreased breath sounds at bases HEART: S1 S2 regular rate and rhythm , ABDOMEN: Soft , no tenderness EXTREMITIES: No edema feet - Labs CBC & Chem 7: 02/09/22 12:15 02/09/22 12:15 Labs: Microbiology - Last 24 Hours (Table) 02/09/22 12:30 Blood Culture Gram Stain - Final Blood Blood Culture - Final Escherichia coli 02/09/22 12:15 Blood Culture Gram Stain - Preliminary Blood Assessment and Plan (1) Fever of unknown origin Current Visit: Yes Status: Acute Code(s): R50.9 - FEVER, UNSPECIFIED SNOMED Code(s): 6554549 (2) Joint infection Current Visit: No Status: Acute Code(s): M00.9 - PYOGENIC ARTHRITIS, UNSPECIFIED SNOMED Code(s): 077699897 Plan: 1patient presented to hospital with fever rigors and chills with a question of possible PICC line infection versus DVT to the left upper extremity in this patient currently getting daptomycin for right shoulder septic arthritis with bacteremia. 2blood culture came positive for ESBL E. coli 3Doppler ultrasound left upper extremity was negative for DVT. 4 ultrasound of the liver gallbladder did not show acute abnormality 5patient to continue with daptomycin 6 mg/kg daily along with Zayra packing of the wound every 48 hour. 6-meropenem 1 g every 8 hours, blood culture repeated document clearance of bacteremia Time with Patient: Less than 30
[2022-02-12 09:16] LABS: HCT 31.4 % (37.2-46.3); HGB 10.4 g/dL (12.0-15.0); MCHC 33.1 g/dL (32.0-37.0); MCV 90.5 fL (80.0-97.0); Mean Platelet Volume 10.8 fL (9.5-12.2); NRBC Per 100 WBC 0 /100 WBCS (0.0-0.0); Platelet Count 176 X 10*3/uL (140-440); RBC 3.47 X 10*6/uL (4.10-5.20); RDW 13.7 % (11.5-14.5); WBC 4.72 X 10*3/uL (4.50-10.00)
[2022-02-12] MEDS: amLODIPine 5 MG TAB PO SCH (09:32)
[2022-02-12] MEDS: SENNOSIDES-DOCUSATE SODIUM 1 EACH TAB PO SCH ×2 (09:32→21:40)
[2022-02-12] MEDS: HEPARIN SODIUM,PORCINE/PF 5,000 UNIT/0.5 ML SYRINGE SQ SCH ×2 (09:32→20:30)
[2022-02-12] MEDS: LOSARTAN 50 MG TAB PO SCH (09:32)
[2022-02-12 09:47] LABS: African American GFR (CKD) 119.8 (60.0-200.0); Albumin 3.7 g/dL (3.8-4.9); Albumin/Globulin Ratio 1.42 (1.60-3.17); Anion Gap 10.2 mmol/L (10.00-18.00); BUN/Creat Ratio 12.5 Ratio (12.00-20.00); Blood Urea Nitrogen 7.5 mg/dL (9.0-27.0); Calcium 8.8 mg/dL (8.7-10.3); Carbon Dioxide 22.8 mmol/L (20.0-27.5); Globulin 2.6 g/dL (1.6-3.3); Non-African American GFR(CKD) 103.3 (60.0-200.0); Potassium 3.9 mmol/L (3.5-5.5); Total Bilirubin 0.3 mg/dL (0.30-1.20); Total Protein 6.3 g/dL (6.2-8.2)
[2022-02-12] MEDS ORDERED: PEG 3350-NA SULF,BICARB,CL/KCL 4,000 ML BOTTLE PO ONE (11:00)
--- NOTE | 2022-02-12 11:19 | P.GSCN ---
History of Present Illness Consult date: 02/12/22 History of present illness: CHIEF COMPLAINT: Fever Reason for consult: colonoscopy HISTORY OF PRESENT ILLNESS: This is a 56-year-old female presented to the hospital with fever, chills and episode of vomiting. She had recent hospitalization for right shoulder septic arthritis with MRSA bacteremia and and had been discharged on 01/14/2022 with IV antibiotics via PICC line. Patient reports that she presented back to the hospital on 02/09/2022 with the fever and chills. They found that she had evidence of a PICC line infection. PICC line culture growing E. coli and blood culture growing E. coli. Patient started having significant amount of diarrhea yesterday. She reports that she was having a lot of abdominal cramping in the lower abdomen with 3 watery stools. She reports no blood in the stools. She denies any nausea or vomiting. She's never had symptoms like this before. She had a computed tomography scan of the abdomen and pelvis done yesterday that had shown nonspecific mild wall thickening in the colon. Surgical service with consultation for colonoscopy. Patient has had no prior history of colonoscopy. PAST MEDICAL HISTORY: See list. PAST SURGICAL HISTORY: See list. MEDICATIONS: See list. ALLERGIES: See list. SOCIAL HISTORY: No illicit drug use. REVIEW OF SYSTEMS: CONSTITUTIONAL: Denies fever or chills. HEENT: Denies blurred vision, vision changes, or eye pain. Denies hemoptysis CARDIOVASCULAR: Denies chest pain or pressure. RESPIRATORY: No shortness of breath. GASTROINTESTINAL: See HPI for pertinent findings HEMATOLOGIC: Denies bleeding disorders. GENITOURINARY: Denies any blood in urine or increased urinary frequency. SKIN: Denies pruitis. Denies rash. PHYSICAL EXAM: VITAL SIGNS: Reviewed GENERAL: Well-developed in no acute distress. HEENT: No sclera icterus. Extraocular movements grossly intact. Moist buccal mucosa. Head is atraumatic, normocephalic. No nasal drainage. ABDOMEN: Soft. Nondistended. tenderness to palpation of middle to lower abdomen NEUROLOGIC: Alert and oriented. Cranial nerves II through XII grossly intact. LABORATORY DATA: WBC 4.72 hemoglobin 10.4 platelets 176 sodium 138 potassium 3.9 creatinine 0.6 IMAGING: computed tomography scan abdomen and pelvis nonspecific mild wall thickening of the colon, otherwise no definite acute abnormality seen in the abdomen or pelvis. Enlarged liver with signs of hepatic steatosis. Bulky spleen. ASSESSMENT: 1. Abdominal pain with diarrhea 2. E. coli bacteremia PLAN: -Patient scheduled for colonoscopy tomorrow, 02/13/[address] Evans -Start clear liquid diet today -Start GoLYTELY prep -Nothing by mouth after midnight Physician Driver Guard note has been reviewed by physician. Signing provider agrees with the documented findings, assessment, and plan of care. I have personally seen and examined the patient, reviewed the SLASHER RUNNER /PAs history, exam and MDM and agree with the assessment and plan as written. Based on total visit time, I have performed more than 50% of the visit. As above: Patient with E. coli bacteremia. We'll proceed with upper and lower endoscopy tomorrow. Past Medical History Past Medical History: GERD/Reflux, Pneumonia Additional Past Medical History / Comment(s): HTN with only, numbness/tingling bilateral feet toes, bronchitis, UTI, concusion, occasional sciatica, anemia. History of Any Multi-Drug Resistant Organisms: MRSA Year Discovered:: 01/09/22 MDRO Source:: shoulder MRSA AND BLOOD Past Surgical History: Hysterectomy Additional Past Surgical History / Comment(s): EGD, D&C, bladder sling Past Anesthesia/Blood Transfusion Reactions: Postoperative Nausea & Vomiting (PONV) Past Psychological History: No Psychological Hx Reported Smoking Status: Never smoker Past Alcohol Use History: Rare - Past Family History Father Family Medical History: CVA/TIA, Musculoskeletal Disorder Additional Family Medical History / Comment(s): Gout, parkinson's disease, of a CVA Mother Family Medical History: No Reported History Additional Family Medical History / Comment(s): Mother is 92 yrs old. Medications and Allergies Home Medications Medication Instructions Recorded Confirmed Type Albuterol Inhaler [Ventolin Hfa 2 puff INHALATION RT-Q4H PRN 01/05/22 02/09/22 History Inhaler] Losartan [Cozaar] 100 mg PO DAILY #60 tab 01/14/22 02/09/22 Rx Ondansetron Odt [Zofran Odt] 4 mg PO Q8HR PRN #14 tab 01/14/22 02/09/22 Rx amLODIPine [Norvasc] 5 mg PO DAILY #30 tab 01/14/22 02/09/22 Rx Acetaminophen Tab [Tylenol Tab] 1,000 mg PO Q6HR PRN 02/09/22 02/09/22 History DAPTOmycin [Cubicin] 462.666 mg IV DAILY 02/09/22 02/09/22 History Fluticasone Nasal Irrigon [Flonase 2 spray EA NOSTRIL DAILY PRN 02/09/22 02/09/22 History Nasal Irrigon] Ibuprofen [Motrin] 800 mg PO Q8H PRN 02/09/22 02/09/22 History Allergies Allergy/AdvReac Type Severity Reaction Status Date / Time Sulfa (Sulfonamide Allergy Nausea & Verified 02/09/22 17:11 Antibiotics) Vomiting hydromorphone [From Dilaudid] AdvReac Hallucinati Verified 02/09/22 17:11 ons vancomycin AdvReac Red Man's Verified 02/09/22 17:11 Syndrome Surgical - Exam Vital Signs Temp Pulse Resp BP Pulse Ox 100.4 F H 146 H 18 129/75 99 02/09/22 11:03 02/09/22 11:03 02/09/22 11:03 02/09/22 11:03 02/09/22 11:03 Results - Labs 02/12/22 06:00 02/12/22 06:00 Abnormal Lab Results - Last 24 Hours (Table) 02/12/22 Range/Units 06:00 RBC 3.47 L (4.10-5.20) X 10*6/uL Hgb 10.4 L (12.0-15.0) g/dL Hct 31.4 L (37.2-46.3) % Microbiology - Last 24 Hours (Table) 02/09/22 19:50 Catheter Tip Culture - Final Picc Line Escherichia coli 02/09/22 12:30 Blood Culture Gram Stain - Final Blood Blood Culture - Final Escherichia coli
--- NOTE | 2022-02-12 11:58 | P.PN ---
Subjective Progress Note Date: 02/12/22 HISTORY OF PRESENT ILLNESS 56-year-old female was hospitalized in 01/05/2022 for severe right shoulder pain and discomfort in the finding to have thick to joint with acromioclavicular severe arthritis. Apparently symptoms develop 01/02/2022 with no previous injury patient symptoms become severe [facility] 01/04/2022 CAT scan was perform at the time showed some fluid in the acromioclavicular joint ended up having Dr. Brar's. Joint for BiPAP 0.5 mL of bloody fluid and analysis ended up coming as an MRSA culture. Patient was hospitalized and remain in the hospital until 01/14/2022 during this time patient ended up going for irrigation and debridement of the shoulder time to culture was obtained twice and showed MRSA. Patient had a PICC line started and was started on IV vancomycin seen infectious disease after [facility] and ended up being discharged on IV antibiotic for total of 6 weeks. Patient apparently developed to have slight bit problem with fluctuating fever and chills ended up and switch from Vanco to daptomycin. Patient was supposed to finish her antibiotics in the next 3 days when developed today to have significant fever and chills with worsening discomfort. X-ray failed to show any abnormality. Laboratory evaluation showed WBC of 7.9 with lactic acid 3.7 blood sugar of 124 slightly abnormal liver function test and normal urine influenza and Covid T came back negative. His determined to be infection not a clear source at this point it doesn't seem like her shoulder as a source she might have line action PICC line. We'll continue daptomycin at this point, consult infectious disease urine culture but her PICC line will be taking out for culture as well and try to obtain peripheral line for antibiotic use for now. Also continued to have significant discomfort in the shoulder area patient be seen orthopedic. 02/10: Patient is seen today on the [facility] floor. Patient has been seen by Dr. Lott and maintained on cefepime and daptomycin. After a dose of daptomycin yesterday, patient thought she developed rigors, vomiting and elevated heart rate which she thought was related to the daptomycin. This will be placed on hold this morning until patient is seen by Dr. Lott. temperature during the night 100.2, blood pressure 144/84, heart rate 96, PO 97% on room air.Repeat lactic acid 1.4. PICC line was removed and catheter sent for culture. Patient has what culture that is positive for gram-negative bacilli x2. Liver ultrasound is pending. Patient also had an ultrasound of the abdomen 01/06 for elevated liver function tests which revealed nonspecific pattern to the liver seen with hepatic steatosis, diffuse hepatocellular disease including hepatitis. At that time she also underwent hepatitis panel which came back negative. Consult added for OA. 02/11: Blood culture is positive for E coli without identified source. PICC culture is in progress. Dr. Lott changed antibiotics to cefepime and patient is continued on daptomycin. Patient denies having any fever or chills, no nausea or vomiting, no urinary symptoms. Patient was assessed and found no enlarged lymph nodes. Patient will need to have a colonoscopy as an outpatient also update her pelvic exam in March as scheduled. A CAT scan of the abdomen and pelvis will be ordered. Patient was seen by orthopedics regarding the right shoulder and she can work on range of motion of the right shoulder. Patient has been updated regarding findings on blood culture and plan for additional testing. Repeat abdominal ultrasound revealed mild cardiomegaly. Correlate for moderate hepatic steatosis with LFTs, lipid profile. No gallstones or biliary ductal dilatation. 02/12: Patient states that she has some diarrhea today most likely secondary to the prep for CAT scan done yesterday. Discussed all options with the patient. She has been recommended for outpatient ENT due to frequent laryngitis. During this hospitalization, transvaginal US and consult with Dr. Evans for colonoscopy. Case was discussed with Dr. Evans. Patient remains afebrile. WBC 4.7, hemoglobin 10.4. Electrolytes normal. BUN 7.5 and creatinine 0.6. Blood sugar 111. ALT 48 otherwise liver function tests are normal. CAT scan of the abdomen and pelvis with contrast revealed enlarged liver with signs of hepatic steatosis. Bulky spleen. Nonspecific mild wall thickening of the colon otherwise no definite acute abnormality seen. Catheter tip culture is positive for E. coli. Repeat blood culture was obtained on 02/[address] Almaguer is planning for midline tomorrow if blood cultures repeated remain negative, Invanz and daptomycin for 12 days. REVIEW OF SYSTEMS Constitutional: Denies fever, denies chills, no night sweats. No weight change. No weakness,Reports fatigue or lethargy. No daytime sleepiness. EENT: No headache. No blurred vision or double vision, no loss of vision. No loss of Hearing, no ringing in the ears, no dizziness. No nasal drainage or congestion. No epistaxis. No sore throat. Lungs: No shortness of breath, cough, no sputum production. No wheezing. Cardiovascular: No chest pain, no lower extremity edema. No palpitations. No paroxysmal nocturnal dyspnea. No orthopnea. No lightheadedness or dizziness. No syncopal episodes. Abdominal: No abdominal pain. No nausea, vomiting. No diarrhea. No constipation. No bloody or tarry stools. No loss of appetite. Genitourinary: No dysuria, increased frequency, urgency. No urinary retention. Musculoskeletal: Mild right shoulder pain and discomfort restriction to motion with neck pain as well., no gait dysfunction, no frequent falls. No back pain. No neck pain. Integumentary: No wounds, no lesions. No rash or pruritus. No unusual bruising. No change in hair or nails. Neurologic: No aphasia. No facial droop. No change in mentation. No head injury. No headache. No paralysis. No paresthesia. Psychiatric: No depression. No anxiety. No mood swings. Endocrine: No abnormal blood sugars. No weight change. No excessive sweating or thirst. No cold intolerance. PHYSICAL EXAMINATION Gen: This is a well-developed 46-year-old female no acute respiratory distress. HEENT: Head is atraumatic, normocephalic. Pupils equal, round. Sclerae is anicteric. NECK: Supple. No JVD. No lymphadenopathy. No thyromegaly. LUNGS: Clear to auscultation. No wheezes or rhonchi. No intercostal retractions. HEART: Regular rate and rhythm. No murmur. ABDOMEN: Soft. Bowel sounds are present. No masses. No tenderness. EXTREMITIES: No pedal edema. No calf tenderness. Right shoulder mild pain and discomfort no sign of abscess or worsening infection or drainage no open area. NEUROLOGICAL: Patient is awake, alert and oriented x3. Cranial nerves 2 through 12 are grossly intact. ASSESSMENT AND PLAN 1 sepsis with E. coli bacteremia. Cefepime changed to meropenem. Patient is still on daptomycin. ID consult appreciated. Abdominal and pelvic CAT scan ordered. patient has no urinary symptoms. 2. Acute infected right shoulder joint: Post drainage and debridement. With IV antibiotic has doing much better so far was switched from vancomycin to daptomycin.Orthopedic consult appreciated. Patient to increase range of motion to the right shoulder. 3 abnormal liver function test with significantly elevated ALT ST: Not a clear etiology at this point liver function tests might be done. Previous US positive for fatty liver and hepatitis panel negative. Repeat US ordered by ID. 4 hyperglycemia: Patient blood sugar was 185 Accu-Chek with sliding scale coverage and be done patient has not been diabetic. 5 elevated blood pressure: Probably affected by her pain and discomfort with start patient on smaller dose of our losartan 50 mg a day and keep patient on hydralazine 25 mg every 6 hour for systolic blood pressure above 140. 6 intractable pain and discomfort in the right shoulder area:from the infected site in the right shoulder, patient to continue using hydrocortisone on an as- needed basis. 7 hyperglycemia: Accu-Chek with sliding scales coverage and continue diet control. 8 GERD/GI prophylaxis: Patient will be on Pepcid. 7 DVT prophylaxis: Patient will be on Lovenox 40 mg subcutaneous daily. CODE STATUS: Full code.\ COVID-19 testing was negative. DISCHARGE PLAN Home with IV Invanz and daptomycin for 12 days. Impression and plan of care have been directed as dictated by the signing physician. Ruby Candelario nurse practitioner acting as scribe for signing physician. Objective - Vital Signs Vital signs: Vital Signs Temp 97.9 F 02/12/22 04:40 Pulse 74 02/12/22 04:40 Resp 18 02/12/22 04:40 BP 150/74 02/12/22 04:40 Pulse Ox 99 02/11/22 19:38 Intake & Output 02/11/22 02/12/22 02/12/22 18:59 06:59 18:59 Intake Total 150 450 Balance 150 450 Intake: Intake, IV Titration 150 Amount DAPTOmycin 400 mg In 50 Sodium Chloride 0.9% 50 ml @ 100 mls/hr IVPB Q24HR [facility] Rx#:[id number] Meropenem 1 gm In Sodium 100 Chloride 0.9% 100 ml @ 33 .3 mls/hr IVPB Q8HR [facility] Rx#:[id number] Oral 450 Other: Voiding Method Toilet # Voids 2 - Labs CBC & Chem 7: 02/12/22 06:00 02/12/22 06:00 Labs: Microbiology - Last 24 Hours (Table) 02/09/22 19:50 Catheter Tip Culture - Final Picc Line Escherichia coli 02/09/22 12:30 Blood Culture Gram Stain - Final Blood Blood Culture - Final Escherichia coli
--- NOTE | 2022-02-12 15:50 | US ---
EXAMINATION TYPE: US pelvis complete transvag DATE OF EXAM: 02/12/2022 COMPARISON: NONE CLINICAL HISTORY: 56-year-old female E. Coli bacteremia. Partial hysterectomy TECHNIQUE: Transvaginal (TV) and Transabdominal (TA) . Transabdominal sonographic images of the pel vis were acquired. Transvaginal sonographic images were medically necessary to better assess the fol lowing anatomy: per order Date of LMP: unknown FINDINGS: EXAM MEASUREMENTS: Uterus: Surgically absent Right Ovary: 2.1 x 1.1 x 2.2 cm Left Ovary: unable to visualize Mid Level Practitioner notes: technical limitations due to lighting in room, corner room with multiple large w indows, bright in room even with blinds closed 1. Uterus: Surgically absent. Vag cuff = 1.3cm, grossly unremarkable 2. Endometrium: Surgically absent 3. Right Ovary: appears wnl 4. Left Ovary: Obscured by overlying bowel gas 5. Bilateral Adnexa: appears wnl IMPRESSION: 1. Status post hysterectomy. 2. Unable to visualize the left ovary. The right ovary appears unremarkable. 3. No pelvic free fluid.
[2022-02-12] MEDS: FLUTICASONE 50MCG/SPRAY NASAL 16GM EA NOSTRIL SCH (20:30)
[2022-02-13] MEDS: MEROPENEM 1 GM in SODIUM CHLORIDE 0.9% 100 ML IVPB SCH (06:24)
[2022-02-13 06:49] LABS: African American GFR (CKD) >90 (>60 ml/min/1.73 sqM); Anion Gap 9 mmol/L; Blood Urea Nitrogen 2 mg/dL (7-17); Calcium 8.4 mg/dL (8.4-10.2); Carbon Dioxide 26 mmol/L (22-30); Chloride 106 mmol/L (98-107); Glucose 110 mg/dL (74-99); Non-African American GFR(CKD) >90 (>60 ml/min/1.73 sqM); Sodium 141 mmol/L (137-145)
--- NOTE | 2022-02-13 08:25 | P.PN ---
Subjective Progress Note Date: 02/13/22 Principal diagnosis: Gram-negative Bacteremia. Status post I&D right acromioclavicular joint for septic arthritis, MRSA. Fever. This is a 56-year-old female who was admitted for fever. Orthopedics is consulted due to recent I&D of the right shoulder. Patient states that last ni ght after her infusion of daptomycin she developed severe chills and a fever. Patient has been on IV antibiotics via PICC line and is being managed by infectious disease for this. Patient states that she went for evaluation in the emergency room and was admitted to rule out infection of her PICC line. Patient states that she has not experienced any fever or chills today. Patient denies any pain in the right shoulder. Patient's past medical history significant for GERD. Patient denies any fever/chills, numbness, weakness, tingling, abdominal pain, shortness of breath or chest pain. 02/11/2022: Patient has no new orthopedic complaints today. She states that her shoulder is causing minimal pain. Gram stain and culture are showing gram-negative bacteria. Vital signs are stable. 02/13/2022: Patient has no new orthopedic complaints today. She is doing well from an orth opedic standpoint. Vital signs are stable. Objective - Vital Signs Vital signs: Vital Signs Temp 98.0 F 02/13/22 04:15 Pulse 71 02/13/22 04:15 Resp 18 02/13/22 04:15 BP 143/73 02/13/22 04:15 Pulse Ox 96 02/13/22 04:15 Intake & Output 02/12/22 02/13/22 02/13/22 18:59 06:59 18:59 Intake Total 150 Balance 150 Intake: Intake, IV Titration 150 Amount DAPTOmycin 400 mg In 50 Sodium Chloride 0.9% 50 ml @ 100 mls/hr IVPB Q24HR [facility] Rx#:[id number] Meropenem 1 gm In Sodium 100 Chloride 0.9% 100 ml @ 33 .3 mls/hr IVPB Q8HR [facility] Rx#:[id number] Other: Voiding Method Toilet # Voids 2 - Exam This is a pleasant 56-year-old female in no acute distress. She is alert and oriented 3. Exam of the right shoulder reveals that the wound is almost healed. Dressing is clean, dry and intact. No erythema or swelling in the surrounding soft tissue. Improved shoulder motion. Minimal pain with motion. Neurovascular status to the upper extremity is intact. - Labs CBC & Chem 7: 02/12/22 06:00 02/13/22 05:22 Labs: Abnormal Lab Results - Last 24 Hours (Table) 02/12/22 02/12/22 02/13/22 Range/Units 06:00 06:00 05:22 RBC 3.47 L (4.10-5.20) X 10*6/uL Hgb 10.4 L (12.0-15.0) g/dL Hct 31.4 L (37.2-46.3) % BUN 7.5 L 2 L (9.0-27.0) mg/dL Creatinine 0.51 L (0.52-1.04) mg/dL Glucose 111 H 110 H (70-110) mg/dL ALT 48 H (8-44) U/L Albumin 3.7 L (3.8-4.9) g/dL Albumin/Globulin Ratio 1.42 L (1.60-3.17) g/dL Microbiology - Last 24 Hours (Table) 02/09/22 12:15 Blood Culture Gram Stain - Final Blood Blood Culture - Final Escherichia coli 02/11/22 14:20 Blood Culture - Preliminary Blood No Growth after 24 hours 02/09/22 12:30 Blood Culture Gram Stain - Final Blood Blood Culture - Final Escherichia coli Assessment and Plan (1) Fever of unknown origin Current Visit: Yes Status: Acute Code(s): R50.9 - FEVER, UNSPECIFIED SNOMED Code(s): 9550633 (2) Positive blood culture Current Visit: Yes Status: Acute Code(s): R78.81 - BACTEREMIA SNOMED Code(s): 508096664 (3) Acromioclavicular joint arthritis Current Visit: No Status: Acute Code(s): M19.019 - PRIMARY OSTEOARTHRITIS, UNSPECIFIED SHOULDER SNOMED Code(s): 936366686 Plan: Family clinical findings are discussed with the patient. It does not appear that her shoulder is involved in her current bacteremia. Her shoulder is improving. She is to continue her scheduled dressing changes per infectious disease. We will follow up in the office as scheduled.
--- NOTE | 2022-02-13 08:27 | P.PN ---
Subjective Progress Note Date: 02/13/22 HISTORY OF PRESENT ILLNESS 56-year-old female was hospitalized in 01/05/2022 for severe right shoulder pain and discomfort in the finding to have thick to joint with acromioclavicular severe arthritis. Apparently symptoms develop 01/02/2022 with no previous injury patient symptoms become severe presented to [facility] department on 01/04/2022 CAT scan was perform at the time showed some fluid in the acromioclavicular joint ended up having Dr. Brar's. Joint for BiPAP 0.5 mL of bloody fluid and analysis ended up coming as an MRSA culture. Patient was hospitalized and remain in the hospital until 01/14/2022 during this time patient ended up going for irrigation and debridement of the shoulder time to culture was obtained twice and showed MRSA. Patient had a PICC line started and was started on IV vancomycin seen infectious disease after Oren and ended up being discharged on IV antibiotic for total of 6 weeks. Patient apparently developed to have slight bit problem with fluctuating fever and chills ended up and switch from Vanco to daptomycin. Patient was supposed to finish her antibiotics in the next 3 days when developed today to have significant fever and chills with worsening discomfort. X-ray failed to show any abnormality. Laboratory evaluation showed WBC of 7.9 with lactic acid 3.7 blood sugar of 124 slightly abnormal liver function test and normal urine influenza and Covid T came back negative. His determined to be infection not a clear source at this point it doesn't seem like her shoulder as a source she might have line action PICC line. We'll continue daptomycin at this point, consult infectious disease urine culture but her PICC line will be taking out for culture as well and try to obtain peripheral line for antibiotic use for now. Also continued to have significant discomfort in the shoulder area patient be seen orthopedic. 02/10: Patient is seen today on the [facility] floor. Patient has been seen by Dr. Lott and maintained on cefepime and daptomycin. After a dose of daptomycin yesterday, patient thought she developed rigors, vomiting and elevated heart rate which she thought was related to the daptomycin. This will be placed on hold this morning until patient is seen by Dr. Lott. temperature during the night 100.2, blood pressure 144/84, heart rate 96, PO 97% on room air.Repeat lactic acid 1.4. PICC line was removed and catheter sent for culture. Patient has what culture that is positive for gram-negative bacilli x2. Liver ultrasound is pending. Patient also had an ultrasound of the abdomen 01/06 for elevated liver function tests which revealed nonspecific pattern to the liver seen with hepatic steatosis, diffuse hepatocellular disease including hepatitis. At that time she also underwent hepatitis panel which came back negative. Consult added for OA. 02/11: Blood culture is positive for E coli without identified source. PICC culture is in progress. Dr. Lott changed antibiotics to cefepime and patient is continued on daptomycin. Patient denies having any fever or chills, no nausea or vomiting, no urinary symptoms. Patient was assessed and found no enlarged lymph nodes. Patient will need to have a colonoscopy as an outpatient also update her pelvic exam in March as scheduled. A CAT scan of the abdomen and pelvis will be ordered. Patient was seen by orthopedics regarding the right shoulder and she can work on range of motion of the right shoulder. Patient has been updated regarding findings on blood culture and plan for additional testing. Repeat abdominal ultrasound revealed mild cardiomegaly. Correlate for moderate hepatic steatosis with LFTs, lipid profile. No gallstones or biliary ductal dilatation. 02/12: Patient states that she has some diarrhea today most likely secondary to the prep for CAT scan done yesterday. Discussed all options with the patient. She has been recommended for outpatient ENT due to frequent laryngitis. During this hospitalization, transvaginal US and consult with Dr. Evans for colonoscopy. Case was discussed with Dr. Evans. Patient remains afebrile. WBC 4.7, hemoglobin 10.4. Electrolytes normal. BUN 7.5 and creatinine 0.6. Blood sugar 111. ALT 48 otherwise liver function tests are normal. CAT scan of the abdomen and pelvis with contrast revealed enlarged liver with signs of hepatic steatosis. Bulky spleen. Nonspecific mild wall thickening of the colon otherwise no definite acute abnormality seen. Catheter tip culture is positive for E. coli. Repeat blood culture was obtained on 02/[address] Almaguer is planning for midline tomorrow if blood cultures repeated remain negative, Invanz and daptomycin for 12 days. 07/16: Patient ended up having transvaginal ultrasound came back with no major abnormality at all, she was seen Dr. vasquez and schedule an EGD and colonoscopy this morning after completing her procedure patient will be going for PICC line or midline and she'll be going home today on Invanz and daptomycin for total of 12 days also will have severe 90 cream for the shoulder along with home PT initially and to be seen back in the office next week. Of her testing are completely negative will probably end up doing blood culture every 2 weeks for the next 3 months and blood testing to be done weekly when she is on antibiotics and support and supervised by infectious disease. REVIEW OF SYSTEMS Constitutional: Denies fever, denies chills, no night sweats. No weight change. No weakness,Reports fatigue or lethargy. No daytime sleepiness. EENT: No headache. No blurred vision or double vision, no loss of vision. No loss of Hearing, no ringing in the ears, no dizziness. No nasal drainage or congestion. No epistaxis. No sore throat. Lungs: No shortness of breath, cough, no sputum production. No wheezing. Cardiovascular: No chest pain, no lower extremity edema. No palpitations. No paroxysmal nocturnal dyspnea. No orthopnea. No lightheadedness or dizziness. No syncopal episodes. Abdominal: No abdominal pain. No nausea, vomiting. No diarrhea. No constipation. No bloody or tarry stools. No loss of appetite. Genitourinary: No dysuria, increased frequency, urgency. No urinary retention. Musculoskeletal: Mild right shoulder pain and discomfort restriction to motion with neck pain as well., no gait dysfunction, no frequent falls. No back pain. No neck pain. Integumentary: No wounds, no lesions. No rash or pruritus. No unusual bruising. No change in hair or nails. Neurologic: No aphasia. No facial droop. No change in mentation. No head injury. No headache. No paralysis. No paresthesia. Psychiatric: No depression. No anxiety. No mood swings. Endocrine: No abnormal blood sugars. No weight change. No excessive sweating or thirst. No cold intolerance. PHYSICAL EXAMINATION Gen: This is a well-developed 46-year-old female no acute respiratory distress. HEENT: Head is atraumatic, normocephalic. Pupils equal, round. Sclerae is anicteric. NECK: Supple. No JVD. No lymphadenopathy. No thyromegaly. LUNGS: Clear to auscultation. No wheezes or rhonchi. No intercostal r etractions. HEART: Regular rate and rhythm. No murmur. ABDOMEN: Soft. Bowel sounds are present. No masses. No tenderness. EXTREMITIES: No pedal edema. No calf tenderness. Right shoulder mild pain and discomfort no sign of abscess or worsening infection or drainage no open area. NEUROLOGICAL: Patient is awake, alert and oriented x3. Cranial nerves 2 through 12 are grossly intact. ASSESSMENT AND PLAN 1 sepsis with E. coli bacteremia. Cefepime changed to meropenem. Patient is still on daptomycin. ID consult appreciated. Abdominal and pelvic CAT scan ordered. patient has no urinary symptoms. 2. Acute infected right shoulder joint: Post drainage and debridement. With IV antibiotic has doing much better so far was switched from vancomycin to daptomycin.Orthopedic consult appreciated. Patient to increase range of motion to the right shoulder. 3 abnormal liver function test with significantly elevated ALT ST: Not a clear etiology at this point liver function tests might be done. Previous US positive for fatty liver and hepatitis panel negative. Repeat US ordered by ID. 4 hyperglycemia: Patient blood sugar was 185 Accu-Chek with sliding scale coverage and be done patient has not been diabetic. 5 elevated blood pressure: Probably affected by her pain and discomfort with start patient on smaller dose of our losartan 50 mg a day and keep patient on hydralazine 25 mg every 6 hour for systolic blood pressure above 140. 6 intractable pain and discomfort in the right shoulder area:from the infected site in the right shoulder, patient to continue using hydrocortisone on an as- needed basis. 7 hyperglycemia: Accu-Chek with sliding scales coverage and continue diet control. 8 GERD/GI prophylaxis: Patient will be on Pepcid. 7 DVT prophylaxis: Patient will be on Lovenox 40 mg subcutaneous daily. CODE STATUS: Full code.\ COVID-19 testing was negative. DISCHARGE PLAN Home with IV Invanz and daptomycin for 12 days. Objective - Vital Signs Vital signs: Vital Signs Temp 98.0 F 02/13/22 04:15 Pulse 71 02/13/22 04:15 Resp 18 02/13/22 04:15 BP 143/73 02/13/22 04:15 Pulse Ox 96 02/13/22 04:15 Intake & Output 02/12/22 02/13/22 02/13/22 18:59 06:59 18:59 Intake Total 150 Balance 150 Intake: Intake, IV Titration 150 Amount DAPTOmycin 400 mg In 50 Sodium Chloride 0.9% 50 ml @ 100 mls/hr IVPB Q24HR [facility] Rx#:[id number] Meropenem 1 gm In Sodium 100 Chloride 0.9% 100 ml @ 33 .3 mls/hr IVPB Q8HR [facility] Rx#:[id number] Other: Voiding Method Toilet # Voids 2 - Labs CBC & Chem 7: 02/12/22 06:00 02/13/22 05:22 Labs: Abnormal Lab Results - Last 24 Hours (Table) 02/12/22 02/12/22 02/13/22 Range/Units 06:00 06:00 05:22 RBC 3.47 L (4.10-5.20) X 10*6/uL Hgb 10.4 L (12.0-15.0) g/dL Hct 31.4 L (37.2-46.3) % BUN 7.5 L 2 L (9.0-27.0) mg/dL Creatinine 0.51 L (0.52-1.04) mg/dL Glucose 111 H 110 H (70-110) mg/dL ALT 48 H (8-44) U/L Albumin 3.7 L (3.8-4.9) g/dL Albumin/Globulin Ratio 1.42 L (1.60-3.17) g/dL Microbiology - Last 24 Hours (Table) 02/09/22 12:15 Blood Culture Gram Stain - Final Blood Blood Culture - Final Escherichia coli 02/11/22 14:20 Blood Culture - Preliminary Blood No Growth after 24 hours 02/09/22 12:30 Blood Culture Gram Stain - Final Blood Blood Culture - Final Escherichia coli
[2022-02-13] MEDS ORDERED: ERTAPENEM 1 GM in SODIUM CHLORIDE 0.9% 50 ML IVPB SCH (09:00)
[2022-02-13] MEDS: SENNOSIDES-DOCUSATE SODIUM 1 EACH TAB PO SCH (09:29)
[2022-02-13] MEDS: HEPARIN SODIUM,PORCINE/PF 5,000 UNIT/0.5 ML SYRINGE SQ SCH (09:29)
[2022-02-13] MEDS: LOSARTAN 50 MG TAB PO SCH (09:33)
[2022-02-13] MEDS: amLODIPine 5 MG TAB PO SCH (09:33)
[2022-02-13] MEDS: ACETAMINOPHEN TAB 325 MG TAB PO PRN (09:43)
[2022-02-13] MEDS ORDERED: LIDOCAINE 2% INJ 20 MG/ML (2 ML VIAL) ONE (12:26)
[2022-02-13] MEDS ORDERED: MIDAZOLAM 2 MG/2 ML VIAL ONE (12:26)
[2022-02-13] MEDS ORDERED: fentaNYL (PF) 50 MCG/ML 2 ML AMP ONE (12:26)
[2022-02-13] MEDS ORDERED: PROPOFOL 10 MG/ML 20 ML VIAL IV ONE (12:26)
[2022-02-13] MEDS ORDERED: IV FLUID CONTINUATION 1,000 ML IV ONE (12:28)
[2022-02-13] MEDS ORDERED: SODIUM CHLORIDE 0.9% 500 ML 500 ML IV ONE (12:54)
[2022-02-13 13:02] VITALS: RESP 16
--- NOTE | 2022-02-13 13:13 | P.PCN ---
Date of Procedure: 02/13/22 Procedure(s) Performed: PREOPERATIVE DIAGNOSIS: GERD, colitis POSTOPERATIVE DIAGNOSIS: Minimal gastritis, rectal polyp PROCEDURE: 1. EGD with biopsy 2. Colonoscopy with snare polypectomy ANESTHESIA: MAC SURGEON: Marcelo Evans M.D. SPECIMENS: Antrum, rectal polyp ENDOSCOPIC PROCEDURE: The patient was on the endoscopy table in the left decubitus position. The Olympus gastroscope was inserted into the oropharynx and passed under direct visualization to the region of the third portion of the duodenum. From that point the scope was slowly withdrawn inspecting all surfaces carefully. There were no neoplastic inflammatory or polypoid lesions throughout the duodenum. The pylorus was widely patent. The stomach was carefully inspected. There was minimal gastritis present. A biopsy of the antrum took place to rule out H. pylori. Retroflexion revealed a normal hiatus. The esophagus was then carefully examined. There were no neoplastic inflammatory or polypoid lesions throughout the visualized esophagus. The patient was kept on the endoscopy table in the left decubitus position. The Olympus colonoscope was inserted into the anus and passed under direct visualization to the base of the cecum. The appendiceal orifice was visualized. From that point the scope was slowly withdrawn inspecting all surfaces carefully. There were no neoplastic inflammatory or polypoid lesions throughout the cecum, ascending, transverse, descending, and sigmoid colon. In the rectum a small polyp was seen and removed using the snare with cautery technique. There was no visible diverticulosis noted. Digital rectal examination was normal. The patient was taken to the recovery room in stable condition per anesthesia guidelines. RECOMMENDATIONS: No source for patient's recent bacteremia seen. Await biopsy results. Resume diet.
[2022-02-13 13:38] VITALS: BP 119/67; PULSE 79; TEMP 97.8
== END 2022-02-13 15:57 | disposition home health service (06) | DRG 314 ==
LOC: EC 10:51 → 5NMEDONC 14:16
PROVIDERS: ADMIT Internal Medicine Geriatric Medicine; ATTEND Internal Medicine Geriatric Medicine
PROC: 05HB33Z Insertion of Infusion Device into Right Basilic Vein, Percutaneous Approach (ICD-10-PCS; principal; 2022-02-13 08:05)
PROC: 0DBP8ZX Excision of Rectum, Via Natural or Artificial Opening Endoscopic, Diagnostic (ICD-10-PCS; 2022-02-13 08:05)
PROC: 0DB78ZX Excision of Stomach, Pylorus, Via Natural or Artificial Opening Endoscopic, Diagnostic (ICD-10-PCS; 2022-02-13 08:05)
DX: T80.211A Bloodstream infection due to central venous catheter, initial encounter (principal); A41.51 Sepsis due to Escherichia coli [E. coli]; M00.011 Staphylococcal arthritis, right shoulder; E87.2 Acidosis; Z16.24 Resistance to multiple antibiotics; Z20.822 Contact with and (suspected) exposure to COVID-19; K76.0 Fatty (change of) liver, not elsewhere classified; K29.70 Gastritis, unspecified, without bleeding; K21.9 Gastro-esophageal reflux disease without esophagitis; K62.1 Rectal polyp; B95.62 Methicillin resistant Staphylococcus aureus infection as the cause of diseases classified elsewhere; R73.9 Hyperglycemia, unspecified; R03.0 Elevated blood-pressure reading, without diagnosis of hypertension; Z79.2 Long term (current) use of antibiotics; Z79.899 Other long term (current) drug therapy; Z87.01 Personal history of pneumonia (recurrent); Z90.710 Acquired absence of both cervix and uterus; Z87.42 Personal history of other diseases of the female genital tract; D64.9 Anemia, unspecified; M54.30 Sciatica, unspecified side; Z87.440 Personal history of urinary (tract) infections; Z87.448 Personal history of other diseases of urinary system; Z98.890 Other specified postprocedural states; Y84.8 Other medical procedures as the cause of abnormal reaction of the patient, or of later complication, without mention of misadventure at the time of the procedure; Z88.5 Allergy status to narcotic agent; Z88.2 Allergy status to sulfonamides; Z88.1 Allergy status to other antibiotic agents; Z82.3 Family history of stroke; Z82.0 Family history of epilepsy and other diseases of the nervous system; Z82.69 Family history of other diseases of the musculoskeletal system and connective tissue; Z82.49 Family history of ischemic heart disease and other diseases of the circulatory system; Z81.8 Family history of other mental and behavioral disorders
CPT/HCPCS: 36410; 36415; 43239; 45385; 71046; 74177; 76705; 76830; 76856; 76937; 80048; 80053; 81003; 83605; 85025; 85027; 87040; 87070; 87077; 87186; 87502; 87635; 88305; 96360; 96361; 99285

== ENCOUNTER → 2022-03-09 | Outpatient (CLI) | payer BC ==
[2022-03-09 11:00] LABS: Basophils # (A) 0.02 X 10*3/uL (0.00-0.10); Basophils % (A) 0.4 %; Eosinophils # (A) 0.27 X 10*3/uL (0.04-0.35); Eosinophils % (A) 5.1 %; HGB 11.3 g/dL (12.0-15.0); Immature Grans, Automated 0.4 %; Lymphocytes # (A) 1.81 X 10*3/uL (0.90-5.00); MCH 29.5 pg (27.0-32.0); MCHC 32.3 g/dL (32.0-37.0); MCV 91.4 fL (80.0-97.0); Mean Platelet Volume 11.4 fL (9.5-12.2); Monocytes # (A) 0.38 X 10*3/uL (0.20-1.00); Monocytes % (A) 7.1 %; NRBC Per 100 WBC 0 /100 WBCS (0.0-0.0); Neutrophils # (A) 2.83 X 10*3/uL (1.80-7.70); Platelet Count 225 X 10*3/uL (140-440); RBC 3.83 X 10*6/uL (4.10-5.20); RDW 14.5 % (11.5-14.5); WBC 5.33 X 10*3/uL (4.50-10.00)
[2022-03-09 11:07] LABS: Anion Gap 10.1 mmol/L (10.00-18.00); BUN/Creat Ratio 15.13 Ratio (12.00-20.00); C Reactive Protein 0.3 mg/dL (0.00-0.80); Calcium 9.6 mg/dL (8.7-10.3); Carbon Dioxide 24.6 mmol/L (20.0-27.5); Non-African American GFR(CKD) 100.1 (60.0-200.0); Potassium 4.4 mmol/L (3.5-5.5)
[2022-03-09 11:17] LABS: Erythrocyte Sedimentation Rate 18 mm/Hr (0-30)
== END | disposition home or self-care (01) ==
LOC: LABWHC1 07:45
PROVIDERS: ATTEND Internal Medicine Infectious Disease
DX: M00.9 Pyogenic arthritis, unspecified (principal)
CPT/HCPCS: 36415; 80048; 85025; 85652; 86140; 87040

== ENCOUNTER → 2022-05-20 | Outpatient (CLI) | payer BC ==
--- NOTE | 2022-05-20 10:07 | MM ---
Reason for Exam: Additional evaluation requested from prior study. Last screening mammogram was performed 7 month(s) ago. Patient History: Menarche at age 14. First Full-Term at age 31. Hysterectomy at age 45. Postmenopausal. Hormonal Contraceptives for 6 months from age 24 until age 24. Maternal cousin had breast cancer, age 48. Maternal aunt had breast cancer, age 60. Risk Values: Nicole 5 year model risk: 1.3%. NCI Lifetime model risk: 9.1%. Prior Study Comparison: 08/19/2020 Bilateral Screening Mammogram, [facility]. 10/30/2021 Bilateral Screening Mammogram, [facility]. 11/05/2021 Left Diagnostic Mammogram, [facility]. Tissue Density: Left: The breast tissue is heterogeneously dense. This may lower the sensitivity of mammography. Findings: Analyzed By CAD. Isodense oval nodular asymmetric density anteriorly on the CC view is unchanged for 6 months. The second medial nodular asymmetric density at a middle depth has decreased in size suggesting a benign cyst. Additional short interval follow-up recommended. Overall Assessment: Probably benign, BI-RAD 3 Management: Diagnostic Mammogram of both breasts in 6 months. 1. Total one-year follow-up left breast and annual exam of the right breast. 2. Patient should continue monthly self breast exams. A clinical breast exam by your physician is recommended on an annual basis. 3. This exam should not preclude additional follow-up of suspicious palpable abnormalities. Results were given to the patient verbally at the time of exam. Electronically signed and approved by: Curt Durán M.D. Radiologist
== END | disposition home or self-care (01) ==
LOC: RADMAMWWP 09:39
PROVIDERS: ATTEND Family Medicine
DX: R92.8 Other abnormal and inconclusive findings on diagnostic imaging of breast (principal); Z78.0 Asymptomatic menopausal state; Z80.3 Family history of malignant neoplasm of breast; Z90.710 Acquired absence of both cervix and uterus
CPT/HCPCS: 77061; 77065

== ENCOUNTER → 2022-12-16 | Outpatient (CLI) | payer BC ==
--- NOTE | 2022-12-16 15:08 | MM ---
Reason for Exam: Follow-up at short interval from prior study. Last mammogram was performed 1 year(s) and 2 month(s) ago. Patient History: Menarche at age 14. First Full-Term at age 31. Hysterectomy at age 45. Postmenopausal. Patient has history of breast feeding. Hormonal Contraceptives for 6 months from age 24 until age 24. Maternal cousin had breast cancer, age 48. Maternal aunt had breast cancer, age 60. Risk Values: Nicole 5 year model risk: 1.3%. NCI Lifetime model risk: 9.1%. Prior Study Comparison: 10/27/2010 Bilateral Screening Mammogram, [facility]. 02/11/2012 Bilateral Screening Mammogram, [facility]. 06/28/2013 Bilateral Screening Mammogram, [facility]. 08/08/2014 Bilateral Diagnostic Mammogram, [facility]. 11/01/2015 Bilateral Screening Mammogram, [facility]. 04/12/2017 Bilateral Screening Mammogram, [facility]. 08/18/2018 Bilateral Screening Mammogram, [facility]. 08/19/2020 Bilateral Screening Mammogram, [facility]. 10/30/2021 Bilateral Screening Mammogram, [facility]. 11/05/2021 Left Diagnostic Mammogram, [facility]. 05/20/2022 Left MG 3D diag mammo w/cad LT, [facility]. Tissue Density: The breast tissue is heterogeneously dense. This may lower the sensitivity of mammography. Findings: Analyzed By CAD. Central nodular asymmetric density anterior left cc view and medial middle depth remain unchanged for one year. An additional one-year follow-up can be performed. Some punctate calcifications laterally unchanged. Benign vascular calcifications laterally on the right. Otherwise, no significant change. Overall Assessment: Probably benign, BI-RAD 3 Management: Diagnostic Mammogram of both breasts in 1 year. 1. Patient should continue monthly self breast exams. 2. A clinical breast exam by your physician is recommended on an annual basis. 3. This exam should not preclude additional follow-up of suspicious palpable abnormalities. Electronically signed and approved by: Curt Durán M.D. Radiologist
== END | disposition home or self-care (01) ==
LOC: RADMAMWWP 14:23
PROVIDERS: ATTEND Family Medicine
DX: R92.8 Other abnormal and inconclusive findings on diagnostic imaging of breast (principal); Z78.0 Asymptomatic menopausal state; Z80.3 Family history of malignant neoplasm of breast
CPT/HCPCS: 77062; 77066

== ENCOUNTER → 2024-01-17 | Outpatient (CLI) | payer BC ==
--- NOTE | 2024-01-17 16:57 | MM ---
Reason for Exam: Screening (asymptomatic). Last mammogram was performed 1 year(s) and 1 month(s) ago. Patient History: Menarche at age 14. First Full-Term at age 31. Hysterectomy at age 45. Postmenopausal. Patient has history of breast feeding. Hormonal Contraceptives for 6 months from age 24 until age 24. Maternal cousin had breast cancer, age 48. Maternal aunt had breast cancer, age 60. Risk Values: Nicole 5 year model risk: 1.4%. NCI Lifetime model risk: 8.9%. Prior Study Comparison: 11/05/2021 Left Diagnostic Mammogram, [facility]. 05/20/2022 Left MG 3D diag mammo w/cad LT, [facility]. 12/16/2022 Bilateral MG 3D diag mammo w/cad KAREN, [facility]. Tissue Density: The breasts are heterogeneously dense, which may obscure small masses. Findings: Analyzed By CAD. The pattern is symmetrical. There are a few scattered punctate calcifications bilaterally. Parenchymal pattern appears stable from comparison No suspicious groups of microcalcifications, spiculated or lobular masses, architectural distortion or other secondary signs of malignancy are mammographically apparent. Overall Assessment: Benign, BI-RAD 2 Management: Screening Mammogram of both breasts in 1 year. A negative mammogram report should not preclude additional follow up of suspicious palpable abnormalities. Patient should continue monthly self breast exam. A clinical breast exam by your physician is recommended on an annual basis and results should be correlated with mammographic findings. Electronically signed and approved by: Yassine Landaverde D.O. Radiologis
== END | disposition home or self-care (01) ==
LOC: RADMAMWWP 07:20
PROVIDERS: ATTEND Internal Medicine Geriatric Medicine
DX: Z12.31 Encounter for screening mammogram for malignant neoplasm of breast (principal); Z80.3 Family history of malignant neoplasm of breast; Z78.0 Asymptomatic menopausal state
CPT/HCPCS: 77063; 77067

== ENCOUNTER → 2025-02-08 | Outpatient (CLI) | payer OTHER ==
--- NOTE | 2025-02-08 11:47 | MM ---
Reason for Exam: Screening (asymptomatic). Last mammogram was performed 1 year(s) and 1 month(s) ago. Patient History: Menarche at age 14. First Full-Term at age 31. Hysterectomy at age 45. Postmenopausal. Patient has history of breast feeding. Hormonal Contraceptives for 6 months from age 24 until age 24. Maternal cousin had breast cancer, age 48. Maternal aunt had breast cancer, age 60. Risk Values: Nicole 5 year model risk: 1.4%. NCI Lifetime model risk: 8.7%. Prior Study Comparison: 05/20/2022 Left MG 3D diag mammo w/cad LT, [facility]. 12/16/2022 Bilateral MG 3D diag mammo w/cad KAREN, [facility]. 01/17/2024 Bilateral MG 3D screening mammo w/cad, [facility]. Tissue Density: The breasts are heterogeneously dense, which may obscure small masses. Findings: Analyzed By CAD. Right breast: There is no suspicious group of microcalcifications or new suspicious mass. Benign-appearing calcifications right breast. Left breast: There is no suspicious group of microcalcifications or new suspicious mass. Benign-appearing calcifications left breast. Overall Assessment: Benign, BI-RAD 2 Management: Screening Mammogram of both breasts in [address] [facility] will attempt to contact patient to return for supplemental views and ultrasound if indicated. Patient should continue monthly self-breast exams. A clinical breast exam by your physician is recommended on an annual basis. This exam should not preclude additional follow-up of suspicious palpable abnormalities. Note on Nicole scores and lifetime risk: 1. A Nicole score greater than 3% is considered moderate risk. If this is the case, consider specialist referral to assess eligibility for a risk reducing agent. 2. If overall lifetime risk for the development of breast cancer is 20% or higher, the patient may qualify for future screening with alternating mammogram and breast MRI. [facility], , 02/08/2025 11:43 AM. Electronically signed and approved by: Phi Hall DO
== END | disposition home or self-care (01) ==
LOC: RADMAMWWP 11:14
PROVIDERS: ATTEND Family Medicine
DX: Z12.31 Encounter for screening mammogram for malignant neoplasm of breast (principal); R92.333 Mammographic heterogeneous density, bilateral breasts; R92.1 Mammographic calcification found on diagnostic imaging of breast; Z78.0 Asymptomatic menopausal state; Z92.0 Personal history of contraception; Z80.3 Family history of malignant neoplasm of breast
CPT/HCPCS: 77063; 77067

== ENCOUNTER → 2025-03-20 | Outpatient (CLI) | payer OTHER ==
--- NOTE | 2025-03-20 10:29 | XR ---
EXAMINATION TYPE: XR knee complete LT DATE OF EXAM: 03/20/2025 10:02 AM COMPARISON: None CLINICAL INDICATION: Female, 59 years old with history of M25.562 PAIN IN LEFT KNEE; [facility], pain TECHNIQUE: XR knee complete LT 3 views submitted. FINDINGS: No evidence of any acute osseous pathology or soft tissue swelling. Tricompartmental oste ophyte formation involving the femoral condyles, tibial plateau and patella. Mild joint space narrowi ng. IMPRESSION: 1. No acute osseous pathology. 2. Mild tricompartmental osteoarthritic changes. [facility], , 03/20/2025 10:26 AM
== END | disposition home or self-care (01) ==
LOC: RADXRMAIN 09:42
PROVIDERS: ATTEND Internal Medicine Geriatric Medicine
DX: M17.12 Unilateral primary osteoarthritis, left knee (principal)